=== PATIENT | female | born 1985 | race Caucasian/White ===

== ENCOUNTER → 2016-09-30 | Outpatient (CLI) | payer OTHER | END | disposition home or self-care (01) | LOC: LABWHC1 16:25 | PROVIDERS: ATTEND Obstetrics & Gynecology | DX: N91.2 Amenorrhea, unspecified (principal) | CPT/HCPCS: 36415; 84702 ==

== ENCOUNTER → 2016-10-25 | Outpatient (CLI) | payer OTHER ==
[2016-10-25 13:33] LABS: CHCM 34.7; HCT 37.1 % (34.0-46.0); HDW 2.61; HGB 12.7 gm/dL (11.4-16.0); MCH 30.7 pg (25.0-35.0); MCHC 34.2 g/dL (31.0-37.0); MCV 89.8 fL (80.0-100.0); Mean Platelet Volume 6.5; RBC 4.13 m/uL (3.80-5.40); RDW 12.7 % (11.5-15.5); WBC 9.5 k/uL (3.8-10.6)
[2016-10-25 13:58] LABS: Non-African American GFR(MDRD) >60 (>60 ml/min/1.73 sqM)
[2016-10-25 14:28] LABS: Hepatitis B Surface Ag Index 0.05
== END | disposition home or self-care (01) ==
LOC: LABWHC1 12:06
PROVIDERS: ATTEND Obstetrics & Gynecology
DX: Z34.91 Encounter for supervision of normal pregnancy, unspecified, first trimester (principal)
CPT/HCPCS: 36415; 82565; 82950; 85027; 86762; 86780; 86850; 86900; 86901; 87340

== ENCOUNTER 2016-10-31 20:19 | Emergency (ER) | payer OTHER ==
[2016-10-31 20:47] VITALS: BP 129/73; PULSE 75; RESP 16; TEMP 98.7
--- NOTE | 2016-10-31 21:32 | ED ---
ENT HPI - General Chief complaint: Dental/Oral Stated complaint: Dental Pain Time Seen by Provider: 10/31/16 21:21 Source: patient, RN notes reviewed Mode of arrival: ambulatory Limitations: no limitations - History of Present Illness Initial comments: 31-year-old male presents emergency Department with chief complaint of dental pain. Patient states in the right lower aspect. Patient denies fever or chills. She states that she cannot take Tylenol as she is . She has an ALLERGY to penicillin. Patient states she has not follow-up with dentist at this time. She's had no prior to the extractions. - Related Data Home Medications Medication Instructions Recorded Confirmed Acetaminophen Tab [Tylenol Tab] 325 mg PO Q4H PRN 10/31/16 10/31/16 Cqr-Ajmn-Tvyas Acid 1 cap PO DAILY 10/31/16 10/31/16 [-U Capsule (formulary)] Previous Rx's Medication Instructions Recorded Clindamycin HCl 300 mg PO Q6HR #40 cap 10/31/16 Allergies Allergy/AdvReac Type Severity Reaction Status Date / Time grass pollen Allergy Unknown Verified 10/31/16 21:07 Penicillins Allergy Rash/Hives Verified 10/31/16 21:07 pollen extracts Allergy Unknown Verified 10/31/16 21:07 Review of Systems ROS Statement: Those systems with pertinent positive or pertinent negative responses have been documented in the HPI. ROS Other: All systems not noted in ROS Statement are negative. Past Medical History Past Medical History: No Reported History Additional Past Medical History / Comment(s): HX ABNORMAL PAP, GESTATIONAL DIABETES History of Any Multi-Drug Resistant Organisms: None Reported Additional Past Surgical History / Comment(s): DANICA EYE SX FOR LAZY EYE Past Anesthesia/Blood Transfusion Reactions: No Reported Reaction Past Psychological History: No Psychological Hx Reported Smoking Status: Former smoker Past Alcohol Use History: Rare Additional Past Alcohol Use History / Comment(s): QUIT SMOKING AGE 24 (1999), STARTED 1995, SMOKED LESS THAN ONE PPD Past Drug Use History: None Reported - Past Family History Father Family Medical History: Cancer Additional Family Medical History / Comment(s): COLON Mother Family Medical History: Cancer, Diabetes Mellitus Additional Family Medical History / Comment(s): BREAST AND UTERINE CA General Exam Limitations: no limitations General appearance: alert, in no apparent distress Head exam: Present: atraumatic, normocephalic, normal inspection Eye exam: Present: normal appearance, PERRL, EOMI. Absent: scleral icterus, conjunctival injection, periorbital swelling ENT exam: Present: mucous membranes moist, TM's normal bilaterally, normal external ear exam. Absent: normal exam, normal oropharynx (Multiple dental caries, edentulous there is no drainable abscess noted) Neck exam: Present: normal inspection, full ROM. Absent: tenderness, meningismus, lymphadenopathy Respiratory exam: Present: normal lung sounds bilaterally. Absent: respiratory distress, wheezes, rales, rhonchi, stridor Cardiovascular Exam: Present: regular rate, normal rhythm, normal heart sounds. Absent: systolic murmur, diastolic murmur, rubs, gallop, clicks Course Vital Signs 10/31/16 20:41 Temperature 98.7 F Pulse Rate 75 Respiratory 16 Rate Blood Pressure 129/73 O2 Sat by Pulse 97 Oximetry Medical Decision Making - Medical Decision Making 31-year-old female presented for dental pain. Patient was placed on clindamycin at this time and follow-up with dentist. Patient will continue acetaminophen as she is . Return parameters were discussed. Disposition Clinical Impression: Fracture of tooth, Toothache Disposition: HOME SELF-CARE Condition: Stable Instructions: Toothache (ED) Additional Instructions: Please return to the Emergency Department if symptoms worsen or any other concerns.Please follow up with the [facility] dental clinic. [facility] [place] [address]. Phone number for new patients or [phone] for existing patients. Prescriptions: Clindamycin HCl 300 mg PO Q6HR #40 cap Referrals: None,Stated [Primary Care Provider] - 1-2 days Time of Disposition: 21:32
== END 2016-10-31 21:45 | disposition home or self-care (01) ==
LOC: EC 20:19
DX: O9A.219 Injury, poisoning and certain other consequences of external causes complicating pregnancy, unspecified trimester (principal); S02.5XXA Fracture of tooth (traumatic), initial encounter for closed fracture; O99.619 Diseases of the digestive system complicating pregnancy, unspecified trimester; K02.9 Dental caries, unspecified; Z87.891 Personal history of nicotine dependence; Z79.899 Other long term (current) drug therapy; Z88.0 Allergy status to penicillin; Z91.09 Other allergy status, other than to drugs and biological substances; X58.XXXA Exposure to other specified factors, initial encounter; Z3A.00 Weeks of gestation of pregnancy not specified
CPT/HCPCS: 99282

== ENCOUNTER 2016-11-22 22:48 | Emergency (ER) | payer OTHER ==
--- NOTE | 2016-11-22 23:15 | ED ---
Female Urogenital HPI - General Chief complaint: Vaginal Bleeding Stated complaint: spotting/11 wks preg Time Seen by Provider: 11/22/16 23:08 Source: patient, RN notes reviewed Mode of arrival: ambulatory Limitations: no limitations - History of Present Illness Initial comments: 31-year-old female presents to the emergency Department chief complaint of left lower quadrant abdominal pain and vaginal spotting. Patient states she had a trip and fall and fell backwards onto her bottom in the bathroom. Patient states that she had a sharp pain at that time it and noticed some spotting. Patient states she did have an ultrasound 11 weeks appear to be normal. Patient states she is . Patient states there is no head injury with this. Patient states there is no direct trauma to the abdomen. Patient states she was concerned due to her symptoms so she thought that she should be evaluated. Patient denies any recent fever, chills, shortness of breath, chest pain, back pain, nausea vomiting, numbness or tingling, dysuria or hematuria, constipation or diarrhea, headaches or visual changes, or any other current symptoms. - Related Data Home Medications Medication Instructions Recorded Confirmed Acetaminophen Tab [Tylenol Tab] 325 mg PO Q4H PRN 10/31/16 11/22/16 Jyu-Rizj-Xfswp Acid 1 cap PO DAILY 10/31/16 11/22/16 [-U Capsule (formulary)] Allergies Allergy/AdvReac Type Severity Reaction Status Date / Time grass pollen Allergy Unknown Verified 11/22/16 23:08 Penicillins Allergy Rash/Hives Verified 11/22/16 23:08 pollen extracts Allergy Unknown Verified 11/22/16 23:08 Review of Systems ROS Statement: Those systems with pertinent positive or pertinent negative responses have been documented in the HPI. ROS Other: All systems not noted in ROS Statement are negative. Past Medical History Past Medical History: No Reported History Additional Past Medical History / Comment(s): HX ABNORMAL PAP, GESTATIONAL DIABETES History of Any Multi-Drug Resistant Organisms: None Reported Additional Past Surgical History / Comment(s): DANICA EYE SX FOR LAZY EYE Past Anesthesia/Blood Transfusion Reactions: No Reported Reaction Past Psychological History: No Psychological Hx Reported Smoking Status: Former smoker Past Alcohol Use History: Rare Past Drug Use History: None Reported - Past Family History Father Family Medical History: Cancer Additional Family Medical History / Comment(s): COLON Mother Family Medical History: Cancer, Diabetes Mellitus Additional Family Medical History / Comment(s): BREAST AND UTERINE CA General Exam - General Exam Comments Initial Comments: General: The patient is awake and alert, in no distress, and does not appear acutely ill. Eye: Pupils are equal, round and reactive to light, extra-ocular movements are intact; there is normal conjunctiva bilaterally. No signs of icterus. Ears, nose, mouth and throat: There are moist mucous membranes. Neck: The neck is supple, there is no tenderness. Cardiovascular: There is a regular rate and rhythm. No murmur, rub or gallop is appreciated. Respiratory: Lungs are clear to auscultation, respirations are non-labored, breath sounds are equal. No wheezes, stridor, rales, or rhonchi. Gastrointestinal: Soft, non-distended, non-tender abdomen without masses or organomegaly noted. There is no rebound or guarding present. No CVA tenderness. Bowel sounds are unremarkable. Back: There is no tenderness to palpation in the midline. There is no obvious deformity. No rashes noted. Musculoskeletal: Normal ROM, no tenderness, There is no pedal edema. There is no calf tenderness or swelling. Sensation intact. Pulses equal bilaterally 2+. Neurological: CN II-XII intact, There are no obvious motor or sensory deficits. Coordination appears grossly intact. Speech is normal. Skin: Skin is warm and dry and no rashes or lesions are noted. Psychiatric: Cooperative, appropriate mood & affect, normal judgment. Limitations: no limitations External exam: Present: normal external exam Speculum exam: Present: vaginal bleeding (Minimal) By manual exam: Present: normal by manual exam Course Vital Signs 11/22/16 11/23/16 22:58 00:52 Temperature 99.1 F 98.8 F Pulse Rate 84 78 Respiratory 16 18 Rate Blood Pressure 126/70 118/59 O2 Sat by Pulse 98 98 Oximetry Medical Decision Making - Medical Decision Making 31-year-old female presents emergency department with a chief complaint of abdominal pain nausea vomiting and vaginal bleeding. At this time the patient ultrasound was reviewed as well as laboratory. At this time the patient does appear to have her cycle bleed which is most likely causing the patient's bleeding. This time we did give her program. We discussed follow-up with her doctor return parameters all questions. Patient stated that she understood all cushions have answered. She'll be discharged. - Lab Data Result diagrams: 11/22/16 23:23 11/22/16 23:23 Lab Results 11/22/16 11/22/16 11/22/16 Range/Units 23:23 23:23 23:23 WBC 10.2 (3.8-10.6) k/uL RBC 3.97 (3.80-5.40) m/uL Hgb 12.3 (11.4-16.0) gm/dL Hct 36.5 (34.0-46.0) % MCV 91.8 (80.0-100.0) fL MCH 30.9 (25.0-35.0) pg MCHC 33.6 (31.0-37.0) g/dL RDW 13.2 (11.5-15.5) % Plt Count 263 (150-450) k/uL Neutrophils % 72 % Lymphocytes % 20 % Monocytes % 6 % Eosinophils % 1 % Basophils % 0 % Neutrophils # 7.3 (1.3-7.7) k/uL Lymphocytes # 2.0 (1.0-4.8) k/uL Monocytes # 0.6 (0-1.0) k/uL Eosinophils # 0.1 (0-0.7) k/uL Basophils # 0.0 (0-0.2) k/uL Sodium 137 (137-145) mmol/L Potassium 3.3 L (3.5-5.1) mmol/L Chloride 103 (98-107) mmol/L Carbon Dioxide 23 (22-30) mmol/L Anion Gap 11 mmol/L BUN 4 L (7-17) mg/dL Creatinine 0.50 L (0.52-1.04) mg/dL Est GFR (MDRD) Af Amer >60 (>60 ml/min/1.73 sqM) Est GFR (MDRD) Non-Af >60 (>60 ml/min/1.73 sqM) Glucose 118 H (74-99) mg/dL Calcium 9.3 (8.4-10.2) mg/dL Total Bilirubin 0.3 (0.2-1.3) mg/dL AST 14 (14-36) U/L ALT 25 (9-52) U/L Alkaline Phosphatase 72 (38-126) U/L Total Protein 6.5 (6.3-8.2) g/dL Albumin 4.0 (3.5-5.0) g/dL HCG, Quant 641854.0 mIU/mL Urine Color Urine Appearance (Clear) Urine pH (5.0-8.0) Ur Specific [place] (1.001-1.035) Urine Protein (Negative) Urine Glucose (UA) (Negative) Urine Ketones (Negative) Urine Blood (Negative) Urine Nitrite (Negative) Urine Bilirubin (Negative) Urine Urobilinogen (<2.0) mg/dL Ur Leukocyte Esterase (Negative) Urine RBC (0-5) /hpf Urine WBC (0-5) /hpf Urine Mucus (None) /hpf Urine Sperm (None) /hpf Blood Type A Negative Blood Type Recheck No Antibody Screen NEGATIVE 11/22/16 Range/Units 23:23 WBC (3.8-10.6) k/uL RBC (3.80-5.40) m/uL Hgb (11.4-16.0) gm/dL Hct (34.0-46.0) % MCV (80.0-100.0) fL MCH (25.0-35.0) pg MCHC (31.0-37.0) g/dL RDW (11.5-15.5) % Plt Count (150-450) k/uL Neutrophils % % Lymphocytes % % Monocytes % % Eosinophils % % Basophils % % Neutrophils # (1.3-7.7) k/uL Lymphocytes # (1.0-4.8) k/uL Monocytes # (0-1.0) k/uL Eosinophils # (0-0.7) k/uL Basophils # (0-0.2) k/uL Sodium (137-145) mmol/L Potassium (3.5-5.1) mmol/L Chloride (98-107) mmol/L Carbon Dioxide (22-30) mmol/L Anion Gap mmol/L BUN (7-17) mg/dL Creatinine (0.52-1.04) mg/dL Est GFR (MDRD) Af Amer (>60 ml/min/1.73 sqM) Est GFR (MDRD) Non-Af (>60 ml/min/1.73 sqM) Glucose (74-99) mg/dL Calcium (8.4-10.2) mg/dL Total Bilirubin (0.2-1.3) mg/dL AST (14-36) U/L ALT (9-52) U/L Alkaline Phosphatase (38-126) U/L Total Protein (6.3-8.2) g/dL Albumin (3.5-5.0) g/dL HCG, Quant mIU/mL Urine Color Light Yellow Urine Appearance Clear (Clear) Urine pH 6.0 (5.0-8.0) Ur Specific [place] 1.006 (1.001-1.035) Urine Protein Negative (Negative) Urine Glucose (UA) Trace H (Negative) Urine Ketones Negative (Negative) Urine Blood Moderate H (Negative) Urine Nitrite Negative (Negative) Urine Bilirubin Negative (Negative) Urine Urobilinogen <2.0 (<2.0) mg/dL Ur Leukocyte Esterase Negative (Negative) Urine RBC 24 H (0-5) /hpf Urine WBC 11 H (0-5) /hpf Urine Mucus Rare H (None) /hpf Urine Sperm Rare (None) /hpf Blood Type Blood Type Recheck Antibody Screen - Radiology Data Radiology results: report reviewed, image reviewed Disposition Clinical Impression: Subchorionic bleed Disposition: HOME SELF-CARE Condition: Stable Instructions: Threatened Miscarriage (ED) Additional Instructions: Please use medication as discussed. Please follow up with family doctor if symptoms have not improved over the next two days. Please return to the emergency room if your symptoms increase or worsen or for any other concerns. Referrals: Skylre Pereira MD [STAFF PHYSICIAN] - 1-2 days Time of Disposition: 01:34
[2016-11-22 23:50] LABS: Basophils % (A) 0 %; CH 31.6; CHCM 34.6; Eosinophils # (A) 0.1 k/uL (0-0.7); Eosinophils % (A) 1 %; HCT 36.5 % (34.0-46.0); HGB 12.3 gm/dL (11.4-16.0); Luc % (Auto) 1; Lymphocytes % (A) 20 %; MCH 30.9 pg (25.0-35.0); MCHC 33.6 g/dL (31.0-37.0); MCV 91.8 fL (80.0-100.0); Mean Platelet Volume 6.7; Monocytes # (A) 0.6 k/uL (0-1.0); Monocytes % (A) 6 %; Neutrophils # (A) 7.3 k/uL (1.3-7.7); Neutrophils % (A) 72 %; RBC 3.97 m/uL (3.80-5.40); RDW 13.2 % (11.5-15.5); WBC 10.2 k/uL (3.8-10.6); WBC (Perox) 10.41
[2016-11-22 23:55] LABS: Appearance,Urine Clear (Clear); Bilirubin,Urine Negative (Negative); Glucose,Urine (UA) Trace (Negative); Ketones,Urine Negative (Negative); Leukocyte Esterase,Urine Negative (Negative); Mucus,Urine Rare /hpf; Nitrite,Urine Negative (Negative); Particle Count 1188; Protein,Urine Negative (Negative); RBC,Urine 24 /hpf (0-5); Specific Gravity,Urine 1.006 (1.001-1.035); Sperm,Urine Rare /hpf; UA Billing (MACRO vs. MICRO) MICRO; Urobilinogen,Urine <2.0 mg/dL (<2.0); WBC,Urine 11 /hpf (0-5)
[2016-11-23] LABS: ALT 25 U/L (9-52); AST 14 U/L (14-36); Alkaline Phosphatase 72 U/L (38-126); Anion Gap 11 mmol/L; Blood Urea Nitrogen 4 mg/dL (7-17); Calcium 9.3 mg/dL (8.4-10.2); Carbon Dioxide 23 mmol/L (22-30); Chloride 103 mmol/L (98-107); Glucose 118 mg/dL (74-99); Non-African American GFR(MDRD) >60 (>60 ml/min/1.73 sqM); Potassium 3.3 mmol/L (3.5-5.1); Sodium 137 mmol/L (137-145); Total Bilirubin 0.3 mg/dL (0.2-1.3); Total Protein 6.5 g/dL (6.3-8.2)
[2016-11-23] MEDS ORDERED: Rhogam IMMUNE GLOBULIN 1,500 UNIT/1 ML IM ONE (00:34)
[2016-11-23 00:55] VITALS: RESP 18
--- NOTE | 2016-11-23 01:05 | US ---
History: Reason: Pain Exam: US OB 1st TRIMESTER Comparison: None available FINDINGS: Single live intrauterine measuring 12 weeks and 2 days by crown- rump length. heart tones 152 bpm. Appearance of perisac hemorrhage measuring 2 x 1 x 3.2 cm. The uterus measures 14.5 x 7.7 x 9.8 cm with a volume of 568 cc. The right ovary measures 2.7 x 1.9 x 2.4 cm with a volume of 8.5 cc. The left ovary measures 3.9 x 0.8 x 1 x 2 cm with a volume of 3.3 cc. No evidence of adnexal mass. No free fluid seen. IMPRESSION: Single live intrauterine measuring 12 weeks and 2 days by crown- rump length with estimated delivery date of 06/04/2017. heart tones 152 bpm. Perisac hemorrhage measuring 2 x 1 x 3.2 cm.
[2016-11-23 01:54] VITALS: BP 124/59; PULSE 65; TEMP 98.1
== END 2016-11-23 01:59 | disposition home or self-care (01) ==
LOC: EC 22:48
DX: O20.9 Hemorrhage in early pregnancy, unspecified (principal); Z87.891 Personal history of nicotine dependence; Z88.0 Allergy status to penicillin; Z91.09 Other allergy status, other than to drugs and biological substances; Z3A.11 11 weeks gestation of pregnancy; Z79.899 Other long term (current) drug therapy
CPT/HCPCS: 99284; 90384; 96372; 36415; 86900; 86901; 80053; 85025; 86850; 81001; 84702; 76813; 76801; J2791

== ENCOUNTER 2017-04-13 03:03 | Outpatient (CLI) | payer OTHER ==
[2017-04-13 03:25] LABS: Glucose,Whole Blood 171 mg/dL (75-99)
[2017-04-13] MEDS ORDERED: INSULIN ASPART 100 UNIT/ML 1 ML 10 ML VIAL SQ ONE (03:28)
[2017-04-13 03:38] VITALS: BP 136/80; PULSE 109; RESP 16; TEMP 96.7
[2017-04-13] MEDS: LACTATED RINGERS 1,000 ML IV SCH ×3 (03:40→08:43)
[2017-04-13 03:53] LABS: Appearance,Urine Cloudy (Clear); Bilirubin,Urine Negative (Negative); Calcium Oxalate Crystals,Urine Occasional /hpf; Glucose,Urine (UA) 4+ (Negative); Ketones,Urine Trace (Negative); Leukocyte Esterase,Urine Large (Negative); Mucus,Urine Occasional /hpf; Nitrite,Urine Negative (Negative); Particle Count 12472; Protein,Urine 1+ (Negative); RBC,Urine 33 /hpf (0-5); Specific Gravity,Urine 1.015 (1.001-1.035); Squamous Epithelial Cell,Urine 7 /hpf (0-4); UA Billing (MACRO vs. MICRO) MICRO; Urobilinogen,Urine <2.0 mg/dL (<2.0); WBC,Urine >182 /hpf (0-5)
[2017-04-13 04:23] LABS: Glucose,Whole Blood 134 mg/dL (75-99)
[2017-04-13] MEDS ORDERED: CIPROFLOXACIN HCL 250 MG TAB PO STA (04:30)
[2017-04-13 06:59] LABS: Glucose,Whole Blood 88 mg/dL (75-99)
[2017-04-13] MEDS ORDERED: BETAMET ACET-BETAMETH SOD PHOS 6 MG/ML VIAL IM SCH (07:15)
[2017-04-13 07:20] LABS: Basophils % (A) 0 %; CH 31.6; Eosinophils # (A) 0.2 k/uL (0-0.7); Eosinophils % (A) 2 %; HCT 36.6 % (34.0-46.0); Luc # (Auto) 0.18; Luc % (Auto) 2; Lymphocytes # (A) 2.1 k/uL (1.0-4.8); Lymphocytes % (A) 19 %; MCH 30.7 pg (25.0-35.0); MCHC 32.8 g/dL (31.0-37.0); MCV 93.7 fL (80.0-100.0); Monocytes # (A) 0.8 k/uL (0-1.0); Monocytes % (A) 7 %; Neutrophils % (A) 70 %; RDW 13.9 % (11.5-15.5); WBC 11.3 k/uL (3.8-10.6); WBC (Perox) 11.47
--- NOTE | 2017-04-13 07:22 | P.HPOB ---
History of Present Illness H&P Date: 04/13/17 Chief Complaint: Contractions This patient is a 32-year-old 3 para 2 female estimated date of confinement 06/08/2016 estimated gestational age 32 0/7 weeks who presents to labor and delivery with complaints of contractions throughout the day yesterday. Patient presented here around 3 AM and was thought not to be dilated. Patient's having contractions every 3-5 minutes that she feels are uncomfortable. Cervix and actually was closed now feels to be 1-2 cm dilated and soft. fibronectin was positive but cloudy, and therefore positive results have to be interpreted with caution. Urinalysis also significant for possible urinary tract infection. Patient's care is per Dr. Phillips it appears to be complicated by gestational diabetes. She is also followed by Dr. Yancey and Dr. Colon at maternal medicine in [place]. Patient most recently was started on insulin. flow however shows that she's been spilling sugar and her sugar is elevated at 171 on admission here patient states that she had a breakfast sandwich in the middle the night. Review of Systems Constitutional: Denies chills, Denies fever Cardiovascular: Denies chest pain, Denies shortness of breath Respiratory: Denies cough Gastrointestinal: Reports heartburn Genitourinary: Reports Menstruation: Reports amenorrhea Past Medical History Additional Past Medical History / Comment(s): HX ABNORMAL PAP, GESTATIONAL DIABETES History of Any Multi-Drug Resistant Organisms: None Reported Additional Past Surgical History / Comment(s): Bilateral eye surgery. LEEP excision of the cervix (after the delivery of her last baby.) Patient's had 2 previous term deliveries. Past Anesthesia/Blood Transfusion Reactions: No Reported Reaction Smoking Status: Never smoker Past Alcohol Use History: None Reported Past Drug Use History: None Reported - Past Family History Father Family Medical History: Cancer Additional Family Medical History / Comment(s): COLON Mother Family Medical History: Cancer, Diabetes Mellitus Additional Family Medical History / Comment(s): BREAST AND UTERINE CA Medications and Allergies Home Medications Medication Instructions Recorded Confirmed Type Mvg-Lxrv-Mhdzt Acid 1 cap PO DAILY 10/31/16 04/13/17 History [-U Capsule (formulary)] Insulin Lispro [humaLOG] 10 units SQ BID 04/13/17 04/13/17 History Allergies Allergy/AdvReac Type Severity Reaction Status Date / Time grass pollen Allergy Unknown Verified 04/13/17 03:07 Penicillins Allergy Anaphylaxis Verified 04/13/17 03:07 pollen extracts Allergy Unknown Verified 04/13/17 03:07 Exam - Vital Signs Vital signs: Vital Signs Temp Pulse Resp BP Pulse Ox 04/13/17 03:19 96.7 F L 109 H 16 136/80 97 Intake and Output 04/12/17 04/13/17 04/13/17 22:59 06:59 14:59 Intake Total 1000 Balance 1000 Intake: Intake, IV Titration 1000 Amount Lactated Ringers 1,000 ml 1000 @ 999 mls/hr IV .Q1H1M BENJAMIN Rx#:[id number] Other: # Voids 2 Weight 88.451 kg - OBG Physical Exam Abdomen: bowel sounds normal, no diffuse tenderness, no bruit present, no guarding noted, no hepatomegaly, no splenomegaly, no mass Vulva: both: normal Cervix: Cervix is 1-2 cm dilated on effaced but very soft and the head is ballotable. Cervix: no lesion, no discharge Uterus: enlarged (Fundal height per Dr. Phillips is 38 cm) Results blood work shows she is A positive, rubella immune, RPR nonreactive, hepatitis B negative, most recent ultrasound showed the baby to be vertex 5 lbs. 8 oz. with polyhydramnios to 25 cm. Abnormal Lab Results - Last 24 Hours (Table) 04/13/17 04/13/17 04/13/17 Range/Units 03:20 03:27 04:21 POC Glucose (mg/dL) 171 H 134 H (75-99) mg/dL Urine Appearance Cloudy H (Clear) Urine Protein 1+ H (Negative) Urine Glucose (UA) 4+ H (Negative) Urine Ketones Trace H (Negative) Urine Blood Moderate H (Negative) Ur Leukocyte Esterase Large H (Negative) Urine RBC 33 H (0-5) /hpf Urine WBC >182 H (0-5) /hpf Ur Squamous Epith Cells 7 H (0-4) /hpf Calcium Oxalate Crystal Occasional H (None) /hpf Urine Mucus Occasional H (None) /hpf Assessment and Plan (1) uterine contractions in third trimester, antepartum Narrative/Plan: This patient is a 32-year-old 3 para 2 female 32-0/7 weeks gestation with contractions and cervical change and gestational diabetes (suspect poor control). Patient's fibronectin was positive however there is a questionable validity due to the cloudy sample. Patient's blood sugars elevated on admission and she has been given 2 units of insulin and we have brought it down to 134. I discussed this case with [facility] due to the prematurity and the fact that she is being controlled by the maternal- medicine for gestational diabetes recommendations at this time are to transfer this patient for further evaluation and glucose regulation. Patient will be given Celestone despite the fact that this may affect her blood sugar because she'll be watched their and have it controlled. At this point the benefits outweigh the risks. Plan at this time was transferred to [facility] for maternal medicine care and concern for possible delivery. Current Visit: Yes Status: Acute Code(s): O47.03 - FALSE LABOR BEFORE 37 COMPLETED WEEKS OF GEST, THIRD TRI SNOMED Code(s): 711162825 (2) Gestational diabetes Current Visit: Yes Status: Acute Code(s): O24.419 - GESTATIONAL DIABETES MELLITUS IN , UNSP CONTROL SNOMED Code(s): 97860462 (3) Urinary tract infection Current Visit: Yes Status: Acute Code(s): N39.0 - URINARY TRACT INFECTION, SITE NOT SPECIFIED SNOMED Code(s): 46377088
[2017-04-13 07:27] LABS: ALT 14 U/L (9-52); AST 18 U/L (14-36); Alkaline Phosphatase 126 U/L (38-126); Anion Gap 7 mmol/L; Blood Urea Nitrogen 3 mg/dL (7-17); Calcium 8.9 mg/dL (8.4-10.2); Carbon Dioxide 23 mmol/L (22-30); Chloride 108 mmol/L (98-107); Glucose 81 mg/dL (74-99); Non-African American GFR(MDRD) >60 (>60 ml/min/1.73 sqM); Potassium 3.5 mmol/L (3.5-5.1); Sodium 138 mmol/L (137-145); Total Bilirubin 0.3 mg/dL (0.2-1.3)
--- NOTE | 2017-04-13 08:13 | P.DS ---
Providers Expected date of discharge: 04/13/17 Attending physician: Leif Abarca Primary care physician: Lief Abarca - Discharge Diagnosis(es) (1) uterine contractions in third trimester, antepartum Current Visit: Yes Status: Acute (2) Gestational diabetes Current Visit: Yes Status: Acute (3) Urinary tract infection Current Visit: Yes Status: Acute Hospital Course: Please see dictated H&P for this patient's admission. This is a 32-year-old 3 para 2 female 32-0/7 weeks gestation with complaints of 1 days of contractions. Patient a positive fibronectin and cervical change in labor and delivery. Patient also had what appears to be uncontrolled gestational diabetes. Patient was transferred to [facility] for further evaluation and treatment. Patient Condition at Discharge: Stable Plan - Discharge Summary New Discharge Prescriptions: No Action Uvq-Yota-Datll Acid [-U Capsule (formulary)] 1 cap PO DAILY Insulin Lispro [humaLOG] 10 units SQ BID Discharge Medication List Zin-Owrs-Hykhm Acid [-U Capsule (formulary)] 1 cap PO DAILY 06/18 [History] Insulin Lispro [humaLOG] 10 units SQ BID 04/13/17 [History] Discharge Disposition: OTHER INSTITUTION NOT DEFINED
--- NOTE | 2017-04-13 08:15 | P.MSEPDOC ---
Presenting Problems - Arrival Data Date of Arrival on Unit: 04/13/17 Time of Arrival on Unit: 03:00 Mode of Transport: Wheelchair - Complaint OB-Reason for Admission/Chief Complaint: Rule Out PROM Comment: cntrx all day, worsening since 1999 Medical History - Information : 3 Para: 2 Term: 2 : 0 Abortions: Spontaneous or Elective: 0 Number of Living Children: 2 - Gestational Age Gestational Age by SPARKLE (wks/days): 32 Weeks and 6 Days - History Complications: GDM Comment: insulin dependent, 10 units BID unsure of what insulin Review of Systems - Review of Systems Constitutional: No problems Breast: No problems ENT: No problems Cardiovascular: No problems Respiratory: No problems Gastrointestinal: No problems Genitourinary: No problems Musculoskeletal: No problems Neurological: No problems Skin: No problems Vital Signs - Temperature Temperature: 96.7 F Temperature Source: Temporal Artery Scan - Pulse Right Pulse Rate: 109 Pulse Assessment Method: Pulse Oximetry - Respirations Respiratory Rate: 16 O2 Sat by Pulse Oximetry: 97 - Blood Pressure Right Arm Blood Pressure: 136/80 Blood Pressure Mean: 98 Blood Pressure Source: Automatic Cuff Medical Screen Scoring (Pre) - Cervical Exam Dilation: 0 cm = 0 Effacement: Exam Deferred - Uterine Contractions Frequency: < 36 weeks = 6 Duration: > 40 seconds = 2 - Maternal Vital Signs Maternal Temperature: N/A Maternal Blood Pressure: N/A Signs of Preeclampsia: N/A Maternal Respirations: N/A - Pain Assessment Pain Location and Character: Abdomen Pain Scale Used: Numeric (1 - 10) Pain Intensity: 9 Pain Management Goal: 3 Pain Description: *Acute, Tightness Pain Frequency: Intermittent Pain Duration: 7 Pain Duration Units: Hours Pain Behavior: Vocalization Pain Aggravating Factors: Contractions - Assessment Baseline FHR: 135 Heart Rate - NICHD Category: Category I (Normal) = 0 Position: N/A - Total Score Total Score (Pre): 8 - Level of Risk Level of Risk: Medium (6-9) Physician Notification (Pre) - Physician Notified Physician Notified Date: 04/13/17 Physician Notified Time: 03:20 Physician/Practitioner Notifed:: Dr Abarca - Notification Comment Comment: reported on c/o cntrx since 1999, GDM insulin controlled, ffn collected , vag exam performed, no bleeding or leaking, NST not reactive yet. orders for IV fluids, send ffn and UA, orally hydrate. If cntrx space out, pt is feeling better and ffn is negative, pt may be d/c'd home Medical Screen Scoring (Post) - Cervical Exam Dilation: Exam Deferred Effacement: Exam Deferred - Uterine Contractions Frequency: < 36 weeks = 6 Duration: > 40 seconds = 2 Intensity: N/A - Maternal Vital Signs Maternal Temperature: N/A Maternal Blood Pressure: N/A Signs of Preeclampsia: N/A Maternal Respirations: N/A - Assessment Heart Rate: 130 Heart Rate - NICHD Category: Category I (Normal) = 0 NST: Reactive - Total Score Total Score (Post): 8 - Post Treatment Level of Risk Post Treatment Level of Risk: Medium (6-9) Physician Notification (Post) - Physician Notified Physician Notified Date: 04/13/17 Physician Notified Time: 04:25 Physician/Practitioner Notified:: Dr Abarca - Notification Comment Comment: reviewed +ffn but cloudy sample so lab instructs to "interpret with caution" due to possible false +, UA Results, fhts reactive, cntrx pattern. orders to keep in triage until he comes in, add culture to urine, cipro po, keep iv infusing. Disposition - Disposition OB Disposition: Observe, Triage I agree with the RN Medical Screening Exam: Yes Risk & Benefit of care provided described in d/c instruction: Yes Diagnosis: LABOR WITHOUT DELIVERY, THIRD TRIMESTER
== END 2017-04-13 08:00 | disposition short-term general hospital (02) ==
LOC: FBPOP 03:03
PROVIDERS: ATTEND Obstetrics & Gynecology
DX: O60.03 Preterm labor without delivery, third trimester (principal); Z3A.32 32 weeks gestation of pregnancy
CPT/HCPCS: 59025; 96360; 96361; 96372; 82731; 80053; 85025; 81001; 87086; G0463; J0702; 99214

== ENCOUNTER 2017-04-22 10:19 | Inpatient (IN) | payer OTHER ==
[2017-04-22] MEDS ORDERED: OXYTOCIN 10 UNIT/ML 1 ML VIAL IM PRN (10:52)
[2017-04-22] MEDS ORDERED: CARBOPROST TROMETHAMINE 250 MCG/ML 1 ML AMP IM PRN (10:52)
[2017-04-22] MEDS ORDERED: LIDOCAINE 1% (PF) 10 MG/ML (30 ML SDV) SQ PRN (10:52)
[2017-04-22] MEDS ORDERED: METHYLERGONOVINE 0.2 MG/ML 1 ML AMP IM PRN (10:52)
[2017-04-22] MEDS ORDERED: TERBUTALINE 1 MG/ML VIAL SQ PRN (10:52)
[2017-04-22] MEDS ORDERED: LACTATED RINGERS 1,000 ML IV SCH ×2 (11:00)
[2017-04-22] MEDS ORDERED: CLINDAMYCIN 900 MG in DEXTROSE 5% IN WATER 50 ML IVPB SCH ×2 (11:00)
[2017-04-22 11:10] LABS: Glucose,Whole Blood 105 mg/dL (75-99)
[2017-04-22] MEDS ORDERED: BETAMET ACET-BETAMETH SOD PHOS 6 MG/ML VIAL IM SCH (11:15)
[2017-04-22 11:41] LABS: Basophils # (A) 0.1 k/uL (0-0.2); Basophils % (A) 0 %; CH 30.8; CHCM 33.7; Eosinophils # (A) 0.1 k/uL (0-0.7); Eosinophils % (A) 1 %; HDW 3.18; HGB 11.1 gm/dL (11.4-16.0); Luc # (Auto) 0.17; Luc % (Auto) 1; Lymphocytes # (A) 1.3 k/uL (1.0-4.8); Lymphocytes % (A) 9 %; MCH 29.9 pg (25.0-35.0); MCHC 32.5 g/dL (31.0-37.0); Mean Platelet Volume 7.2; Monocytes # (A) 0.9 k/uL (0-1.0); Monocytes % (A) 6 %; Neutrophils # (A) 12.7 k/uL (1.3-7.7); Neutrophils % (A) 83 %; RDW 13.5 % (11.5-15.5); WBC 15.3 k/uL (3.8-10.6); WBC (Perox) 15.53
--- NOTE | 2017-04-22 11:56 | P.HPOB ---
History of Present Illness H&P Date: 04/22/17 Chief Complaint: Contractions This is a 32-year-old female 3 para 2 with an estimated date of confinement of 06/08/2017, estimated gestational age of 33-3/7 weeks, who presents to labor and delivery with complaints of contractions that began about 6-7 this morning. They became stronger and then she came in. She was admitted to maternal medicine in [place] on April 13. She was given 2 doses of Celestone on the and and then was discharged on April 18. She stated she was 3 cm when she was in [place]. She stated they kept her that long to get her sugars under control. She states she is taking insulin but does not take any this morning. She has 1 insulin she takes twice a day and another insulin that she takes 3 times a day right before her meals. She could not give me the doses on her insulin or what kind of insulin she is taking. labs: Blood type A-, RhoGAM was given at approximately 28 weeks Antibody screen-negative Syphilis antibody-negative nonreactive Rubella-immune 1 hour Glucola-203 Hepatitis B surface antigen-negative Hemoglobin-12.7 Group B streptococcus positive on urine culture Obstetrical history: . History of 2 vaginal deliveries at term. She did have gestational diabetes with her second . Gynecologic history: She does have a history of abnormal Pap smears in the past and did have a LEEP procedure in July 2015 Review of Systems Constitutional: Denies chills, Denies fever Eyes: denies blurred vision, denies pain Cardiovascular: Denies chest pain, Denies shortness of breath Respiratory: Denies cough Gastrointestinal: Reports abdominal pain (Contractions) Genitourinary: Reports pelvic pain, Reports Musculoskeletal: Reports low back pain Integumentary: Denies pruritus, Denies rash Neurological: Denies numbness, Denies weakness Psychiatric: Denies anxiety, Denies depression Past Medical History Additional Past Medical History / Comment(s): HX ABNORMAL PAP, GESTATIONAL DIABETES History of Any Multi-Drug Resistant Organisms: None Reported Additional Past Surgical History / Comment(s): Bilateral eye surgery. LEEP excision of the cervix (after the delivery of her last baby.) Patient's had 2 previous term deliveries. Past Anesthesia/Blood Transfusion Reactions: No Reported Reaction Past Psychological History: No Psychological Hx Reported Smoking Status: Never smoker Past Alcohol Use History: None Reported Additional Past Alcohol Use History / Comment(s): QUIT SMOKING AGE 24 (1999), STARTED 1995, SMOKED LESS THAN ONE PPD Past Drug Use History: None Reported - Past Family History Father Family Medical History: Cancer Additional Family Medical History / Comment(s): COLON Mother Family Medical History: Cancer, Diabetes Mellitus Additional Family Medical History / Comment(s): BREAST AND UTERINE CA Medications and Allergies Home Medications Medication Instructions Recorded Confirmed Type Uws-Lqjv-Ymfqx Acid 1 cap PO DAILY 10/31/16 04/13/17 History [-U Capsule (formulary)] Insulin Lispro [humaLOG] 10 units SQ BID 04/13/17 04/13/17 History Allergies Allergy/AdvReac Type Severity Reaction Status Date / Time grass pollen Allergy Unknown Verified 04/13/17 03:07 Penicillins Allergy Anaphylaxis Verified 04/13/17 03:07 pollen extracts Allergy Unknown Verified 04/13/17 03:07 Exam Osteopathic Statement: *. No significant issues noted on an osteopathic structural exam other than those noted in the History and Physical/Consult. - Vital Signs Vital signs: Vital Signs Temp Resp BP 04/22/17 11:28 97.8 F 18 128/93 Intake and Output 04/21/17 04/22/17 04/22/17 22:59 06:59 14:59 Other: Weight 89.358 kg Patient Weight 04/23/17 06:59 Weight 89.358 kg HEENT: Within normal limits Heart: Regular rate and rhythm Lungs: Clear to auscultation bilaterally Abdomen: Cervix: 7 cm/100% -2 station with bulging bag. heart tones: Reactive Contractions: Every 2-3 minutes Extremities: Negative Homans Results Result Diagrams: 04/22/17 11:25 Abnormal Lab Results - Last 24 Hours (Table) 04/22/17 04/22/17 Range/Units 11:01 11:25 WBC 15.3 H (3.8-10.6) k/uL RBC 3.70 L (3.80-5.40) m/uL Hgb 11.1 L (11.4-16.0) gm/dL Neutrophils # 12.7 H (1.3-7.7) k/uL POC Glucose (mg/dL) 105 H (75-99) mg/dL Assessment and Plan (1) labor in third trimester with delivery Current Visit: Yes Status: Acute Code(s): O60.14X0 - LABOR THIRD TRI W DELIVERY THIRD TRI, UNSP SNOMED Code(s): 8269757 (2) 33 weeks gestation of Current Visit: Yes Status: Acute Code(s): Z3A.33 - 33 WEEKS GESTATION OF SNOMED Code(s): 24980267 (3) Gestational diabetes Current Visit: No Status: Acute Code(s): O24.419 - GESTATIONAL DIABETES MELLITUS IN , UNSP CONTROL SNOMED Code(s): 89582315 (4) Group B Streptococcus carrier state affecting Current Visit: Yes Status: Acute Code(s): O99.820 - STREPTOCOCCUS B CARRIER STATE COMPLICATING SNOMED Code(s): 598404157 Plan: Admission for active labor. Antibiotic prophylaxis for group B streptococcus. Expectant management. Patient is aware that the baby will need to be transferred due to prematurity.
[2017-04-22 12:25] VITALS: BMI 32.8
[2017-04-22] MEDS ORDERED: OXYTOCIN 20 UNITS/1000 ML NS 1,000 ML IV SCH (13:53)
[2017-04-22] MEDS ORDERED: ACETAMINOPHEN TAB 325 MG TAB PO PRN (13:53)
[2017-04-22] MEDS ORDERED: IBUPROFEN 600 MG TAB PO PRN (13:53)
[2017-04-22] MEDS ORDERED: HYDROCORTISONE 2.5% RECTAL CREAM 30 GM TUBE RECTAL PRN (13:53)
[2017-04-22] MEDS ORDERED: diphenhydrAMINE 50 MG/ML 1 ML VIAL IVP PRN ×2 (13:53)
[2017-04-22] MEDS ORDERED: SIMETHICONE 80 MG CHEWABLE PO PRN (13:53)
[2017-04-22] MEDS ORDERED: diphenhydrAMINE 50 MG CAP PO PRN (13:53)
[2017-04-22] MEDS ORDERED: BENZOCAINE/MENTHOL SPRAY 1 GM/SPRAY AEROSOL TOPICAL PRN (13:53)
[2017-04-22] MEDS ORDERED: Acetaminophen-Codeine 300-30mg TAB PO PRN ×2 (13:53)
[2017-04-22] MEDS ORDERED: diphenhydrAMINE 25 MG CAP PO PRN (13:53)
[2017-04-22] MEDS ORDERED: WITCH HAZEL 1 EACH MED..PAD TOPICAL PRN (13:53)
[2017-04-22] MEDS ORDERED: LANOLIN CREAM 5 GM TUBE TOPICAL PRN (13:53)
[2017-04-22] MEDS ORDERED: ZOLPIDEM 5 MG TAB PO PRN (13:53)
[2017-04-22] MEDS ORDERED: INSULIN ASPART 100 UNIT/ML 1 ML 10 ML VIAL SQ ONE ×2 (15:42→22:37)
[2017-04-22 16:06] LABS: Glucose,Whole Blood 187 mg/dL (75-99)
--- NOTE | 2017-04-22 16:26 | P.CONS ---
History of Present Illness - Reason for Consult Consult date: 04/22/17 diabetic management Requesting physician: Jennifer Boles - Chief Complaint contractions - History of Present Illness Patient is a 32-year-old female with a past medical history of gestational diabetes, prior tobacco abuse, and obesity who presented with labor. She subsequently delivered a baby boy at 33 3/7 weeks. She had recently been hospitalized at [facility] for labor. This morning she began experiencing contractions a headed to the hospital. She states she has had gestational diabetes for the majority of her . She states she has been on insulin since her first trimester. She is unsure of her exact insulin doses but takes it 3 times a day with meals and twice a day long- acting insulin. She is unsure of the names or the doses. She takes 1 vial in 1 -10. She denies any chest pain, shortness of breath, or lightheadedness. She complains of abdominal pain. She was having significant swelling in her lower extremities prior to delivery. Her baby will be going to the special care nursery. She feels that she is going to stay here over night and leave in the morning. Review of Systems Pertinent positives and negatives as per HPI, all other review of systems is negative. Past Medical History Past Medical History: No Reported History Additional Past Medical History / Comment(s): HX ABNORMAL PAP, GESTATIONAL DIABETES X 2 History of Any Multi-Drug Resistant Organisms: None Reported Additional Past Surgical History / Comment(s): Eye surgery for strabismus. LEEP excision of the cervix (after the delivery of her last baby.) Patient's had 2 previous term deliveries. Past Anesthesia/Blood Transfusion Reactions: No Reported Reaction Past Psychological History: No Psychological Hx Reported Smoking Status: Never smoker Past Alcohol Use History: None Reported Additional Past Alcohol Use History / Comment(s): QUIT SMOKING AGE 24 (1999), STARTED 1995, SMOKED LESS THAN ONE PPD Past Drug Use History: None Reported - Past Family History Father Family Medical History: Cancer Additional Family Medical History / Comment(s): COLON Mother Family Medical History: Cancer, Diabetes Mellitus Additional Family Medical History / Comment(s): BREAST AND UTERINE CA Medications and Allergies Home Medications Medication Instructions Recorded Confirmed Type Iqa-Ynmb-Pxweq Acid 1 cap PO DAILY 10/31/16 04/13/17 History [-U Capsule (formulary)] Insulin Lispro [humaLOG] 10 units SQ BID 04/13/17 04/13/17 History Allergies Allergy/AdvReac Type Severity Reaction Status Date / Time grass pollen Allergy Unknown Verified 04/13/17 03:07 Penicillins Allergy Anaphylaxis Verified 04/13/17 03:07 pollen extracts Allergy Unknown Verified 04/13/17 03:07 Physical Exam Osteopathic Statement: *. No significant issues noted on an osteopathic structural exam other than those noted in the History and Physical/Consult. Vitals: Vital Signs Temp Pulse Resp BP 04/22/17 15:24 86 14 135/75 04/22/17 14:54 81 14 136/72 04/22/17 14:31 86 14 111/60 04/22/17 14:24 88 14 121/58 04/22/17 14:09 86 16 129/63 04/22/17 13:54 96.8 F L 88 18 119/61 04/22/17 11:28 97.8 F 18 128/93 Intake and Output 04/22/17 04/22/17 04/22/17 06:59 14:59 22:59 Other: Weight 89.358 kg Patient Weight 04/23/17 06:59 Weight 89.358 kg Results CBC & Chem 7: 04/22/17 11:25 Labs: Abnormal Lab Results - Last 24 Hours (Table) 04/22/17 04/22/17 04/22/17 Range/Units 11:01 11:25 15:37 WBC 15.3 H (3.8-10.6) k/uL RBC 3.70 L (3.80-5.40) m/uL Hgb 11.1 L (11.4-16.0) gm/dL Neutrophils # 12.7 H (1.3-7.7) k/uL POC Glucose (mg/dL) 105 H 187 H (75-99) mg/dL Assessment and Plan Assessment: Gestational diabetes, suspect true diabetes with early onset in and amount of insulin needed. -Maternal medicine at [place] contacted at [phone]. Patient was discharged home from the hospital on aspart 10 units a day before meals and Levemir 20U prior to breakfast and at night. - SSI insulin and Levemir 10 units tonight. - Insulin resistance should decrease after delivery and will therefore decrease insulin - if she decide to leave before the morning I would discharge on levemir 20 units at night (Pt refers to this as pen insulin) and have her continue to check Blood sugars times daily. She would not need a new Rx just new directions and there are added to discharge tab. If her sugars are >200 or less than 90 at home she should contact Lindsey the special educator at maternal medicine. She will also need to establish with a family doctor for half-way management. Dr. Rust is currently accepting new patient info added to discharge tab. - Will need repeat HgB A1C in 6 weeks if greater than 6 would confirm diabetes. delivery - management per JOB COMPOSITOR Thank you for allowing us to participate in the care of this patient. Do not hesitate to contact us with questions. Someone can be reached from the [facility] hospitalist group at all hours of the day at [phone].
--- NOTE | 2017-04-22 17:29 | P.PROBDLV ---
Vaginal Delivery Note - . Vaginal Delivery Note: The patient progressed to complete dilation after artificial rupture of membranes with thin meconium noted. She did receive 1 dose of clindamycin due to group B strep positive. Once reaching complete dilation she involuntarily started pushing and delivered fairly rapidly across the perineum. Nose and mouth were bulb suctioned after delivery and brisk cry was noted immediately. A viable male infant was noted with scores of 8 at 1 minute and 9 at 5 minutes and infant weight of 7 lbs. 9 oz. Cord blood was obtained secondary to Rh- status. Placenta delivered shortly thereafter intact, with a three-vessel cord. Of note she did have a velamentous cord insertion. Uterus contracted fairly well after oxytocin was given and uterine massage was carried out. Inspection of the perineum revealed a second-degree perineal laceration. This area was anesthetized with 1% lidocaine and then sutured with 3-0 and 2-0 Vicryl suture in the usual multilayer fashion. Estimated blood loss was approximately 200 mL's. Both mother and infant are in stable condition. [facility] due to prematurity.
[2017-04-22 18:59] LABS: Glucose,Whole Blood 171 mg/dL (75-99)
[2017-04-22] MEDS: INSULIN ASPART 100 UNIT/ML 1 ML 10 ML VIAL SQ SCH ×2 (19:00→22:00)
[2017-04-22] MEDS ORDERED: SENNOSIDES-DOCUSATE SODIUM 1 EACH TAB PO SCH (20:00)
[2017-04-22] MEDS ORDERED: INSULIN DETEMIR 100 UNIT/ML 10 ML VIAL SQ SCH (21:00)
[2017-04-22 21:31] LABS: Glucose,Whole Blood 210 mg/dL (75-99)
[2017-04-23 07:18] LABS: Glucose,Whole Blood 72 mg/dL (75-99)
[2017-04-23 07:46] LABS: Basophils # (A) 0.1 k/uL (0-0.2); Basophils % (A) 1 %; CH 31.2; CHCM 34.7; Eosinophils # (A) 0.5 k/uL (0-0.7); Eosinophils % (A) 3 %; HCT 32.1 % (34.0-46.0); HDW 3.13; HGB 10.7 gm/dL (11.4-16.0); Luc # (Auto) 0.31; Luc % (Auto) 2; Lymphocytes # (A) 2.3 k/uL (1.0-4.8); Lymphocytes % (A) 13 %; MCHC 33.2 g/dL (31.0-37.0); MCV 90.4 fL (80.0-100.0); Mean Platelet Volume 7.4; Monocytes # (A) 1.2 k/uL (0-1.0); Monocytes % (A) 7 %; Neutrophils # (A) 13.8 k/uL (1.3-7.7); Neutrophils % (A) 76 %; RBC 3.55 m/uL (3.80-5.40); RDW 13.5 % (11.5-15.5); WBC 18.2 k/uL (3.8-10.6); WBC (Perox) 18.34
--- NOTE | 2017-04-23 07:53 | P.DS ---
Providers Date of admission: 04/22/17 10:53 Expected date of discharge: 04/23/17 Attending physician: Kellee Phillips Consults: 04/22/17 13:53 Consult Physician Urgent Consulting Provider: Carol Driscoll Consult Reason/Comments: Diabetes management Do you want consulting provider notified?: Yes Primary care physician: Stated None - Discharge Diagnosis(es) (1) Normal vaginal delivery Current Visit: Yes Status: Acute Hospital Course: Patient presented in active labor with uncontrolled gestational diabetes at 33 weeks. She had some labor issues last week and was transferred to a tertiary facility. They discharged her a few days ago. She returned here in active labor and her sugars are still not well controlled despite counselling and insulin and diet. She did deliver and [facility] The patient is doing well, she had a consult with medicine and will follow up with Dr Rust as a family physician to follow her diabetes management. I will see her post as well. Plan - Discharge Summary Discharge Rx Participant: Yes New Discharge Prescriptions: New Ibuprofen [Motrin] 600 mg PO Q6HR PRN #30 tab PRN Reason: Mild Pain Or Fever >= 100.5 No Action Emo-Itfc-Znosh Acid [-U Capsule (formulary)] 1 cap PO DAILY Insulin Lispro [humaLOG] 10 units SQ BID Discharge Medication List Yiq-Wlkc-Fcmjt Acid [-U Capsule (formulary)] 1 cap PO DAILY 06/18 [History] Insulin Lispro [humaLOG] 10 units SQ BID 04/13/17 [History] Ibuprofen [Motrin] 600 mg PO Q6HR PRN #30 tab 04/23/17 [Rx] Follow up Appointment(s)/Referral(s): Jennifer Rust MD [STAFF PHYSICIAN] - 1 Week Kellee Phillips DO [Doctor of Osteopathic Medicine] - 6 Weeks Activity/Diet/Wound Care/Special Instructions: Please continue your levemir 20 units at night (pen insulin) and stop all other insulins at this time. Continue to check Blood sugars times daily. If your sugars are >200 or less than 90 at home you should contact Lindsey the patient educator at maternal medicine immediately the office number is [phone]. You should establish with a family doctor to follow your sugars and determine if you can come off insulin. Dr. Rust is currently accepting new patients. Please try to see her in 1 week. You will need repeat HgB A1C in 6 weeks .
[2017-04-23 10:27] LABS: Glucose,Whole Blood 94 mg/dL (75-99)
--- NOTE | 2017-04-23 12:21 | P.PN ---
Subjective Progress Note Date: 04/23/17 Principal diagnosis: Gestational diabetes Patient is a 32-year-old female with a past medical history of gestational diabetes, prior tobacco abuse, and obesity who presented with labor. She subsequently delivered a baby boy at 33 3/7 weeks. Since delivery her insulin requirement have dramatically decreased. She received 10 units of levemir last night and her morning blood sugar was 72 her 2 hours post parandial was 94. She shows no need to be discharged home on insulin at this time. Patient s/e at bedside. Feeling well. Excited that her sugar was so low this morning. No dizziness, shaking, nausea. Complains of perineal pain and cramping. No other complaints. I discussed with her the need to establish with a PCP and have her A1C checked at 6 weeks post . She will also check her sugars twice daily for the next 10 days and call Lindsey if elevation as listed below. Objective - Vital Signs Vital signs: Vital Signs Temp 98.2 F 04/23/17 00:00 Pulse 80 04/23/17 00:00 Resp 16 04/23/17 00:00 BP 98/48 04/23/17 00:00 Pulse Ox 98 04/22/17 19:52 Intake & Output 04/22/17 04/23/17 04/23/17 18:59 06:59 18:59 Intake Total 750 Balance 750 Weight 89.358 kg Intake: IV 750 Lactated Ringers 1,000 ml 750 @ 125 mls/hr IV .Q8H [facility] Rx#:[id number] Other: # Voids 1 - Exam General: non toxic, no distress, appears at stated age Derm: warm, dry Head: atraumatic, normocephalic, symmetric Eyes: EOMI, no lid lag, anicteric sclera Cardiovascular: S1S2 reg, no murmur, positive posterior tibial pulse bilateral, Lungs: CTA bilateral, no rhonchi, no rales , no accessory muscle use Ext: no gross muscle atrophy, no edema, no contractures Neuro: CN II-XI grossly intact, no focal neuro deficits Psych: Alert, oriented, appropriate affect - Labs CBC & Chem 7: 04/23/17 07:36 Labs: Abnormal Lab Results - Last 24 Hours (Table) 04/22/17 04/22/17 04/22/17 Range/Units 11:01 11:25 15:37 WBC 15.3 H (3.8-10.6) k/uL RBC 3.70 L (3.80-5.40) m/uL Hgb 11.1 L (11.4-16.0) gm/dL Hct (34.0-46.0) % Neutrophils # 12.7 H (1.3-7.7) k/uL Monocytes # (0-1.0) k/uL POC Glucose (mg/dL) 105 H 187 H (75-99) mg/dL 04/22/17 04/22/17 04/23/17 Range/Units 18:49 21:24 07:15 WBC (3.8-10.6) k/uL RBC (3.80-5.40) m/uL Hgb (11.4-16.0) gm/dL Hct (34.0-46.0) % Neutrophils # (1.3-7.7) k/uL Monocytes # (0-1.0) k/uL POC Glucose (mg/dL) 171 H 210 H 72 L (75-99) mg/dL 04/23/17 Range/Units 07:36 WBC 18.2 H (3.8-10.6) k/uL RBC 3.55 L (3.80-5.40) m/uL Hgb 10.7 L (11.4-16.0) gm/dL Hct 32.1 L (34.0-46.0) % Neutrophils # 13.8 H (1.3-7.7) k/uL Monocytes # 1.2 H (0-1.0) k/uL POC Glucose (mg/dL) (75-99) mg/dL Assessment and Plan Assessment: Gestational diabetes, suspect true diabetes with early onset in and amount of insulin needed. -Maternal medicine at [place] contacted at [phone]. Patient was discharged home from the hospital on aspart 10 units a day before meals and Levemir 20U prior to breakfast and at night. - Will need repeat HgB A1C in 6 weeks if greater than 6 would confirm diabetes. -Intructions for patients added to dischage orders as follows: Please continue to check your blood sugars at home in the morning and then once a day 2 hours after a meal. Your morning blood sugar should be less than 126 and your blood sugars 2 hours after meals should be less than 180. Please check blood sugars for the next 10 days. If all blood sugars are less then these goals you can stop checking. If your blood sugar is greater than 180 in the morning or greater than 250 after meals at home you should contact Lindsey the machinist bench at maternal medicine immediately the office number is until you can be seen by Dr. Rust. delivery - management per AUTO DAMAGE TRAINEE Thank you for allowing us to participate in the care of this patient. Do not hesitate to contact us with questions. Someone can be reached from the [facility] hospitalist group at all hours of the day at [phone].
[2017-04-23 12:36] LABS: Glucose,Whole Blood 142 mg/dL (75-99)
[2017-04-23 16:47] VITALS: BP 122/67; PULSE 81; RESP 16; TEMP 98.1
== END 2017-04-23 16:09 | disposition home or self-care (01) | DRG 560 ==
LOC: FBPOP 10:19 → 4FBP 10:53
PROVIDERS: ADMIT Obstetrics & Gynecology; ATTEND Obstetrics & Gynecology
PROC: 10E0XZZ Delivery of Products of Conception, External Approach (ICD-10-PCS; principal; 2017-04-22)
PROC: 0KQM0ZZ Repair Perineum Muscle, Open Approach (ICD-10-PCS; 2017-04-22)
DX: O60.14X0 Preterm labor third trimester with preterm delivery third trimester, not applicable or unspecified (principal); O24.92 Unspecified diabetes mellitus in childbirth; O99.824 Streptococcus B carrier state complicating childbirth; O77.0 Labor and delivery complicated by meconium in amniotic fluid; O43.123 Velamentous insertion of umbilical cord, third trimester; O70.1 Second degree perineal laceration during delivery; O99.214 Obesity complicating childbirth; Z79.4 Long term (current) use of insulin; Z37.0 Single live birth; Z3A.33 33 weeks gestation of pregnancy; Z87.891 Personal history of nicotine dependence; Z80.49 Family history of malignant neoplasm of other genital organs; Z83.3 Family history of diabetes mellitus; Z88.0 Allergy status to penicillin; Z91.048 Other nonmedicinal substance allergy status
CPT/HCPCS: 59025; 83036; 85025; 88307; 99213

== ENCOUNTER 2017-12-28 16:35 | Inpatient (IN) | payer OTHER ==
--- NOTE | 2017-12-28 16:55 | ED ---
Abdominal Pain HPI - General Source: patient Mode of arrival: ambulatory Limitations: no limitations - History of Present Illness MD Complaint: abdominal pain -: hour(s) (12) Location: epigastric Migration to: other (Around back) Quality: cramping, aching Consistency: constant Improves With: nothing Worsens With: nothing Associated Symptoms: nausea Treatments Prior to Arrival: NSAIDs <Marybeth Beyer - Last Filed: 12/28/17 19:27> <Jefferson Ascencio - Last Filed: 12/28/17 19:35> - General Chief Complaint: Abdominal Pain Stated Complaint: Abd Pain Time Seen by Provider: 12/28/17 16:42 - History of Present Illness Initial Comments: 32 year old female complaining of epigastric discomfort that woke up at 2:30 this morning. Patient states it wraps around her back. Patient feels nauseous but no vomiting patient had one episode of loose bowels. Patient 8 months and is breast-feeding. No surgical history. No vaginal discharge. no dysuria. Patient's been on metformin 1000 twice a day for one week. Patient has a history of gestational diabetes. (Marybeth Beyer) - Related Data Home Medications Medication Instructions Recorded Confirmed Gyj-Aqfm-Etzpl Acid 1 cap PO DAILY 10/31/16 04/13/17 [-U Capsule (formulary)] Insulin Lispro [humaLOG] 10 units SQ BID 04/13/17 04/13/17 Previous Rx's Medication Instructions Recorded Ibuprofen [Motrin] 600 mg PO Q6HR PRN #30 tab 04/23/17 Allergies Allergy/AdvReac Type Severity Reaction Status Date / Time grass pollen Allergy Unknown Verified 12/28/17 16:59 Penicillins Allergy Anaphylaxis Verified 12/28/17 16:59 pollen extracts Allergy Unknown Verified 12/28/17 16:59 Review of Systems ROS Other: All systems not noted in ROS Statement are negative. Constitutional: Denies: fever, chills ENT: Denies: ear pain, throat pain Respiratory: Denies: cough, dyspnea Gastrointestinal: Reports: abdominal pain, nausea, diarrhea Neurological: Denies: headache, weakness <Marybeth Beyer - Last Filed: 12/28/17 19:27> ROS Other: All systems not noted in ROS Statement are negative. <Jefferson Ascencio - Last Filed: 12/28/17 19:35> ROS Statement: Those systems with pertinent positive or pertinent negative responses have been documented in the HPI. Past Medical History Past Medical History: No Reported History, Diabetes Mellitus Additional Past Medical History / Comment(s): HX ABNORMAL PAP, GESTATIONAL DIABETES X 2 History of Any Multi-Drug Resistant Organisms: None Reported Additional Past Surgical History / Comment(s): Eye surgery for strabismus. LEEP excision of the cervix (after the delivery of her last baby.) Patient's had 2 previous term deliveries. Past Anesthesia/Blood Transfusion Reactions: No Reported Reaction Past Psychological History: No Psychological Hx Reported Smoking Status: Never smoker Past Alcohol Use History: None Reported Past Drug Use History: None Reported - Past Family History Father Family Medical History: Cancer Additional Family Medical History / Comment(s): COLON Mother Family Medical History: Cancer, Diabetes Mellitus Additional Family Medical History / Comment(s): BREAST AND UTERINE CA <Marybeth Beyer - Last Filed: 12/28/17 19:27> General Exam Limitations: no limitations General appearance: alert, in no apparent distress Eye exam: Present: normal appearance, PERRL, EOMI. Absent: scleral icterus, conjunctival injection, periorbital swelling ENT exam: Present: normal exam, mucous membranes moist Respiratory exam: Present: normal lung sounds bilaterally. Absent: respiratory distress, wheezes, rales, rhonchi, stridor Cardiovascular Exam: Present: regular rate, normal rhythm, normal heart sounds. Absent: systolic murmur, diastolic murmur, rubs, gallop, clicks GI/Abdominal exam: Present: soft, tenderness (epigastric), normal bowel sounds. Absent: distended, guarding, rebound, rigid Back exam: Present: normal inspection Neurological exam: Present: alert, oriented X3, CN II-XII intact Psychiatric exam: Present: normal affect, normal mood Skin exam: Present: warm, dry, intact, normal color. Absent: rash <Marybeth Beyer - Last Filed: 12/28/17 19:27> Course <Marybeth Beyer - Last Filed: 12/28/17 19:27> <Jefferson Ascencio - Last Filed: 12/28/17 19:35> Vital Signs 12/28/17 12/28/17 16:36 19:26 Temperature 99.0 F Pulse Rate 83 81 Respiratory 18 18 Rate Blood Pressure 142/89 123/69 O2 Sat by Pulse 98 99 Oximetry - Reevaluation(s) Reevaluation #1: 12/28/17 19:31 Page supervision: I did personally do a [id number] evaluation patient did discuss findings with her. Patient does have some epigastric tenderness palpation imaging shows evidence of cholelithiasis and cholecystitis with a dilated common bile duct. Additionally lab work shows evidence of cholecystitis and pancreatitis. (Jefferson Ascencio) Reevaluation #2: 12/28/17 19:32 I did discuss case with Dr. Cortes. Patient be admitted with consultation by Dr. Pelayo for possible ERCP. The patient is in agreement with this. (Jefferson Ascencio) Medical Decision Making - Lab Data Result diagrams: 12/28/17 17:20 12/28/17 17:20 <Marybeth Beyer - Last Filed: 12/28/17 19:27> - Lab Data Result diagrams: 12/28/17 17:20 12/28/17 17:20 <Jefferson Ascencio - Last Filed: 12/28/17 19:35> - Medical Decision Making Reviewed labs patient's liver enzymes were extremely elevated along with her lipase ordered an ultrasound of abdomen to rule out any gallbladder etiologies. Ultrasound revealed all stones probable acute cholecystitis patient aware Dr. Ascencio contacted surgical consult which is about Dr. Cortes will except the patient. Dr. Ascencio will be taking over care (Marybeth Beyer) - Lab Data Lab Results 12/28/17 12/28/17 12/28/17 Range/Units 17:20 17:20 17:20 WBC 8.0 (3.8-10.6) k/uL RBC 4.61 (3.80-5.40) m/uL Hgb 13.5 (11.4-16.0) gm/dL Hct 40.9 (34.0-46.0) % MCV 88.7 (80.0-100.0) fL MCH 29.4 (25.0-35.0) pg MCHC 33.1 (31.0-37.0) g/dL RDW 12.8 (11.5-15.5) % Plt Count 274 (150-450) k/uL Neutrophils % 77 % Lymphocytes % 13 % Monocytes % 7 % Eosinophils % 2 % Basophils % 0 % Neutrophils # 6.2 (1.3-7.7) k/uL Lymphocytes # 1.1 (1.0-4.8) k/uL Monocytes # 0.6 (0-1.0) k/uL Eosinophils # 0.1 (0-0.7) k/uL Basophils # 0.0 (0-0.2) k/uL Sodium 138 (137-145) mmol/L Potassium 4.1 (3.5-5.1) mmol/L Chloride 105 (98-107) mmol/L Carbon Dioxide 27 (22-30) mmol/L Anion Gap 6 mmol/L BUN 7 (7-17) mg/dL Creatinine 0.50 L (0.52-1.04) mg/dL Est GFR (CKD-EPI)AfAm >90 (>60 ml/min/1.73 sqM) Est GFR (CKD-EPI)NonAf >90 (>60 ml/min/1.73 sqM) Glucose 207 H (74-99) mg/dL Calcium 9.2 (8.4-10.2) mg/dL Total Bilirubin 2.0 H (0.2-1.3) mg/dL AST 656 H (14-36) U/L ALT 348 H (9-52) U/L Alkaline Phosphatase 129 H (38-126) U/L Total Protein 6.7 (6.3-8.2) g/dL Albumin 4.1 (3.5-5.0) g/dL Amylase 75 (30-110) U/L Lipase 894 H (23-300) U/L Urine Color Dark Yellow Urine Appearance Cloudy H (Clear) Urine pH 6.5 (5.0-8.0) Ur Specific [place] 1.028 (1.001-1.035) Urine Protein 1+ H (Negative) Urine Glucose (UA) 4+ H (Negative) Urine Ketones Trace H (Negative) Urine Blood Negative (Negative) Urine Nitrite Negative (Negative) Urine Bilirubin 2+ H (Negative) Urine Urobilinogen 12.0 (<2.0) mg/dL Ur Leukocyte Esterase Large H (Negative) Urine RBC 5 (0-5) /hpf Urine WBC 35 H (0-5) /hpf Ur Squamous Epith Cells 21 H (0-4) /hpf Urine Mucus Few H (None) /hpf Urine HCG, Qual (Not Detectd) 12/28/17 Range/Units 17:20 WBC (3.8-10.6) k/uL RBC (3.80-5.40) m/uL Hgb (11.4-16.0) gm/dL Hct (34.0-46.0) % MCV (80.0-100.0) fL MCH (25.0-35.0) pg MCHC (31.0-37.0) g/dL RDW (11.5-15.5) % Plt Count (150-450) k/uL Neutrophils % % Lymphocytes % % Monocytes % % Eosinophils % % Basophils % % Neutrophils # (1.3-7.7) k/uL Lymphocytes # (1.0-4.8) k/uL Monocytes # (0-1.0) k/uL Eosinophils # (0-0.7) k/uL Basophils # (0-0.2) k/uL Sodium (137-145) mmol/L Potassium (3.5-5.1) mmol/L Chloride (98-107) mmol/L Carbon Dioxide (22-30) mmol/L Anion Gap mmol/L BUN (7-17) mg/dL Creatinine (0.52-1.04) mg/dL Est GFR (CKD-EPI)AfAm (>60 ml/min/1.73 sqM) Est GFR (CKD-EPI)NonAf (>60 ml/min/1.73 sqM) Glucose (74-99) mg/dL Calcium (8.4-10.2) mg/dL Total Bilirubin (0.2-1.3) mg/dL AST (14-36) U/L ALT (9-52) U/L Alkaline Phosphatase (38-126) U/L Total Protein (6.3-8.2) g/dL Albumin (3.5-5.0) g/dL Amylase (30-110) U/L Lipase (23-300) U/L Urine Color Urine Appearance (Clear) Urine pH (5.0-8.0) Ur Specific [place] (1.001-1.035) Urine Protein (Negative) Urine Glucose (UA) (Negative) Urine Ketones (Negative) Urine Blood (Negative) Urine Nitrite (Negative) Urine Bilirubin (Negative) Urine Urobilinogen (<2.0) mg/dL Ur Leukocyte Esterase (Negative) Urine RBC (0-5) /hpf Urine WBC (0-5) /hpf Ur Squamous Epith Cells (0-4) /hpf Urine Mucus (None) /hpf Urine HCG, Qual Not Detected (Not Detectd) Disposition <Marybeth Beyer - Last Filed: 12/28/17 19:27> <Jefferson Ascencio - Last Filed: 12/28/17 19:35> Clinical Impression: Acute abdomen, Cholelithiases, Acute cholecystitis, Hyperbilirubinemia, Pancreatitis, Common bile duct dilatation Disposition: ADMITTED IP TO THIS HOSP Condition: Serious Referrals: Jennifer Rust MD [Primary Care Provider] - 1-2 days
[2017-12-28 17:30] LABS: Basophils % (A) 0 %; Eosinophils # (A) 0.1 k/uL (0-0.7); Eosinophils % (A) 2 %; HCT 40.9 % (34.0-46.0); HGB 13.5 gm/dL (11.4-16.0); Lymphocytes # (A) 1.1 k/uL (1.0-4.8); Lymphocytes % (A) 13 %; MCH 29.4 pg (25.0-35.0); MCHC 33.1 g/dL (31.0-37.0); MCV 88.7 fL (80.0-100.0); Mean Platelet Volume 6.4; Monocytes # (A) 0.6 k/uL (0-1.0); Monocytes % (A) 7 %; Neutrophils # (A) 6.2 k/uL (1.3-7.7); Neutrophils % (A) 77 %; Platelet Count 274 k/uL (150-450); RBC 4.61 m/uL (3.80-5.40); RDW 12.8 % (11.5-15.5)
[2017-12-28 17:33] LABS: Appearance,Urine Cloudy (Clear); Bilirubin,Urine 2+ (Negative); Blood,Urine Negative (Negative); Color,Urine Dark Yellow; Glucose,Urine (UA) 4+ (Negative); Ketones,Urine Trace (Negative); Leukocyte Esterase,Urine Large (Negative); Mucus,Urine Few /hpf; Nitrite,Urine Negative (Negative); PH, Urine 6.5 (5.0-8.0); Protein,Urine 1+ (Negative); RBC,Urine 5 /hpf (0-5); Specific Gravity,Urine 1.028 (1.001-1.035); Squamous Epithelial Cell,Urine 21 /hpf (0-4); WBC,Urine 35 /hpf (0-5)
[2017-12-28 17:39] LABS: ALT 348 U/L (9-52); AST 656 U/L (14-36); Albumin 4.1 g/dL (3.5-5.0); Alkaline Phosphatase 129 U/L (38-126); Amylase 75 U/L (30-110); Anion Gap 6 mmol/L; Blood Urea Nitrogen 7 mg/dL (7-17); Calcium 9.2 mg/dL (8.4-10.2); Carbon Dioxide 27 mmol/L (22-30); Chloride 105 mmol/L (98-107); Glucose 207 mg/dL (74-99); Lipase 894 U/L (23-300); Potassium 4.1 mmol/L (3.5-5.1); Sodium 138 mmol/L (137-145); Total Protein 6.7 g/dL (6.3-8.2)
--- NOTE | 2017-12-28 18:49 | US ---
EXAMINATION TYPE: US abdomen complete DATE OF EXAM: 12/28/2017 COMPARISON: NONE CLINICAL HISTORY: Pain. RUQ pain that extends to left side of back, ate 3hrs prior to exam EXAM MEASUREMENTS: Liver Length: 15.6 cm Gallbladder Wall: 0.3 cm CBD: 0.7 cm Spleen: 12.6 cm Right Kidney: 11.1 x 5.0 x 4.7 cm Left Kidney: 10.9 x 5.3 x 5.1 cm Pancreas: wnl Liver: wnl Gallbladder: multiple choleliths, mobile stone seen within borderline wall thickness Evidence for sonographic Colon's sign: YES CBD: wnl Spleen: upper limits of normal for size Right Kidney: wnl Left Kidney: wnl Upper IVC: wnl Abd Aorta: wnl The liver is homogenous. The intrahepatic portion of the IVC and proximal abdominal aorta are within normal limits. The visualized portions of the pancreas are homogenous. The spleen is unremarkable. Kidneys are symmetric and free of hydronephrosis. No renal lesions are seen. IMPRESSION: Multiple gallstones, gallbladder wall thickening with enlarged common bile duct and a positive sonogr aphic Colon's sign. These findings are highly suspicious for acute cholecystitis. Findings were discussed with Dr. Jefferson Ascencio by Dr. Fontanez on 12/28/17 at 1845 hours.
[2017-12-28] MEDS ORDERED: NALOXONE 0.4 MG/ML 1 ML VIAL IV PRN (19:35)
[2017-12-28] MEDS: SODIUM CHLORIDE 0.9% 1,000 ML IV SCH (20:09)
[2017-12-28 20:50] VITALS: BMI 30.2
[2017-12-28 21:13] LABS: Glucose,Whole Blood 168 mg/dL (75-99)
[2017-12-28] MEDS: INSULIN ASPART 100 UNIT/ML 1 ML 10 ML VIAL SQ SCH (21:27)
[2017-12-28] MEDS: HYDROmorphone 1 MG/ML 1 ML SYRINGE IVP PRN (21:30)
[2017-12-28] MEDS: CIPROFLOXACIN/DEXTROSE PMX 400 MG in DEXTROSE/WATER 1 200ML.BAG IVPB SCH (21:31)
[2017-12-28] MEDS: ONDANSETRON 4 MG/2 ML VIAL IVP PRN (22:16)
[2017-12-28] MEDS: metroNIDAZOLE-NS PMX 500 MG in SALINE 1 100ML.BAG IVPB SCH (23:45)
[2017-12-29] MEDS: SODIUM CHLORIDE 0.9% 1,000 ML IV SCH ×3 (05:13→23:49)
[2017-12-29 07:17] LABS: Glucose,Whole Blood 160 mg/dL (75-99)
[2017-12-29] MEDS: PANTOPRAZOLE 40 MG/10 ML VIAL IV SCH (07:59)
[2017-12-29] MEDS: metroNIDAZOLE-NS PMX 500 MG in SALINE 1 100ML.BAG IVPB SCH ×3 (07:59→23:49)
[2017-12-29] MEDS: INSULIN ASPART 100 UNIT/ML 1 ML 10 ML VIAL SQ SCH ×4 (08:00→21:37)
[2017-12-29] MEDS: CIPROFLOXACIN/DEXTROSE PMX 400 MG in DEXTROSE/WATER 1 200ML.BAG IVPB SCH ×2 (09:01→20:11)
[2017-12-29 11:39] LABS: Glucose,Whole Blood 143 mg/dL (75-99)
[2017-12-29] MEDS: ONDANSETRON 4 MG/2 ML VIAL IVP PRN (12:01)
[2017-12-29] MEDS: HYDROmorphone 1 MG/ML 1 ML SYRINGE IVP PRN (12:01)
[2017-12-29 13:29] LABS: Basophils % (A) 0 %; Eosinophils # (A) 0.2 k/uL (0-0.7); Eosinophils % (A) 3 %; HCT 39.1 % (34.0-46.0); HGB 12.9 gm/dL (11.4-16.0); Lymphocytes # (A) 1.7 k/uL (1.0-4.8); Lymphocytes % (A) 25 %; MCV 90.7 fL (80.0-100.0); Mean Platelet Volume 6.6; Monocytes # (A) 0.4 k/uL (0-1.0); Monocytes % (A) 5 %; Neutrophils # (A) 4.4 k/uL (1.3-7.7); Neutrophils % (A) 65 %; Platelet Count 257 k/uL (150-450); RBC 4.31 m/uL (3.80-5.40); RDW 13.1 % (11.5-15.5); WBC 6.8 k/uL (3.8-10.6)
[2017-12-29 13:41] LABS: ALT 390 U/L (9-52); AST 338 U/L (14-36); Albumin 3.8 g/dL (3.5-5.0); Alkaline Phosphatase 148 U/L (38-126); Anion Gap 8 mmol/L; Blood Urea Nitrogen 4 mg/dL (7-17); Calcium 8.6 mg/dL (8.4-10.2); Carbon Dioxide 24 mmol/L (22-30); Chloride 109 mmol/L (98-107); Glucose 116 mg/dL (74-99); Potassium 3.9 mmol/L (3.5-5.1); Sodium 141 mmol/L (137-145); Total Bilirubin 0.9 mg/dL (0.2-1.3); Total Protein 6.3 g/dL (6.3-8.2)
--- NOTE | 2017-12-29 15:13 | P.GSHP ---
History of Present Illness H&P Date: 12/29/17 Chief Complaint: Choledocholithiasis 32-year-old female presents to the hospital with complaints of epigastric pain with radiation to the back. Also noticed dark-colored urine and that persists. Pain slightly better today but still present. Yesterday's liver enzyme elevation has improved today. No history of similar events. Patient is 8 months . Was having episodes of nausea and vomiting as well. No weight loss. No alcohol use. - Review of Systems Comment: The patient denies any acute changes in vision or hearing, no dysphagia or odynophagia, no chest pain or shortness of breath, no dysuria or hematuria, no headache, no runny nose, no rectal bleeding or melena, no unexplained weight loss Past Medical History Past Medical History: No Reported History, Diabetes Mellitus Additional Past Medical History / Comment(s): Type 2 diabetes History of Any Multi-Drug Resistant Organisms: None Reported Additional Past Surgical History / Comment(s): Eye surgery for strabismus. LEEP excision of the cervix (after the delivery of her last baby.) Patient's had 2 previous term deliveries. Past Anesthesia/Blood Transfusion Reactions: No Reported Reaction Past Psychological History: No Psychological Hx Reported Smoking Status: Never smoker Past Alcohol Use History: None Reported Additional Past Alcohol Use History / Comment(s): QUIT SMOKING AGE 24 (1999), STARTED 1995, SMOKED LESS THAN ONE PPD Past Drug Use History: None Reported - Past Family History Father Family Medical History: Cancer Additional Family Medical History / Comment(s): COLON Mother Family Medical History: Cancer, Diabetes Mellitus Additional Family Medical History / Comment(s): BREAST AND UTERINE CA Medications and Allergies Home Medications Medication Instructions Recorded Confirmed Type Gtk-Nove-Sntua Acid 1 cap PO DAILY 10/31/16 12/29/17 History [-U Capsule (formulary)] Ibuprofen [Motrin] 600 mg PO Q6HR PRN #30 tab 04/23/17 12/29/17 Rx metFORMIN HCL 1,000 mg PO BID 12/28/17 12/29/17 History Norethindrone [Hazel] 0.35 mg PO DAILY 12/29/17 12/29/17 History Allergies Allergy/AdvReac Type Severity Reaction Status Date / Time grass pollen Allergy Unknown Verified 12/29/17 07:21 Penicillins Allergy Anaphylaxis Verified 12/29/17 07:21 pollen extracts Allergy Unknown Verified 12/29/17 07:21 Surgical - Exam Vital Signs Temp Pulse Resp BP Pulse Ox 99.0 F 83 18 142/89 98 12/28/17 16:36 12/28/17 16:36 12/28/17 16:36 12/28/17 16:36 12/28/17 16:36 Physical exam: General: Well-developed, well-nourished HEENT: Normocephalic, sclerae nonicteric Abdomen: Mild epigastric tenderness, nondistended Extremities: No edema Neuro: Alert and oriented Results - Labs 12/29/17 13:10 12/29/17 13:10 Abnormal Lab Results - Last 24 Hours (Table) 12/28/17 12/28/17 12/28/17 Range/Units 17:20 17:20 21:10 Chloride (98-107) mmol/L BUN (7-17) mg/dL Creatinine 0.50 L (0.52-1.04) mg/dL Glucose 207 H (74-99) mg/dL POC Glucose (mg/dL) 168 H (75-99) mg/dL Total Bilirubin 2.0 H (0.2-1.3) mg/dL AST 656 H (14-36) U/L ALT 348 H (9-52) U/L Alkaline Phosphatase 129 H (38-126) U/L Lipase 894 H (23-300) U/L Urine Appearance Cloudy H (Clear) Urine Protein 1+ H (Negative) Urine Glucose (UA) 4+ H (Negative) Urine Ketones Trace H (Negative) Urine Bilirubin 2+ H (Negative) Ur Leukocyte Esterase Large H (Negative) Urine WBC 35 H (0-5) /hpf Ur Squamous Epith Cells 21 H (0-4) /hpf Urine Mucus Few H (None) /hpf 12/29/17 12/29/17 12/29/17 Range/Units 07:14 11:36 13:10 Chloride 109 H (98-107) mmol/L BUN 4 L (7-17) mg/dL Creatinine 0.50 L (0.52-1.04) mg/dL Glucose 116 H (74-99) mg/dL POC Glucose (mg/dL) 160 H 143 H (75-99) mg/dL Total Bilirubin (0.2-1.3) mg/dL AST 338 H (14-36) U/L ALT 390 H (9-52) U/L Alkaline Phosphatase 148 H (38-126) U/L Lipase (23-300) U/L Urine Appearance (Clear) Urine Protein (Negative) Urine Glucose (UA) (Negative) Urine Ketones (Negative) Urine Bilirubin (Negative) Ur Leukocyte Esterase (Negative) Urine WBC (0-5) /hpf Ur Squamous Epith Cells (0-4) /hpf Urine Mucus (None) /hpf Diabetes panel 12/28/17 12/29/17 Range/Units 17:20 13:10 Sodium 138 141 (137-145) mmol/L Potassium 4.1 3.9 (3.5-5.1) mmol/L Chloride 105 109 H (98-107) mmol/L Carbon Dioxide 27 24 (22-30) mmol/L BUN 7 4 L (7-17) mg/dL Creatinine 0.50 L 0.50 L (0.52-1.04) mg/dL Glucose 207 H 116 H (74-99) mg/dL Calcium 9.2 8.6 (8.4-10.2) mg/dL AST 656 H 338 H (14-36) U/L ALT 348 H 390 H (9-52) U/L Alkaline Phosphatase 129 H 148 H (38-126) U/L Total Protein 6.7 6.3 (6.3-8.2) g/dL Albumin 4.1 3.8 (3.5-5.0) g/dL Calcium panel 12/28/17 12/29/17 Range/Units 17:20 13:10 Calcium 9.2 8.6 (8.4-10.2) mg/dL Albumin 4.1 3.8 (3.5-5.0) g/dL Pituitary panel 12/28/17 12/29/17 Range/Units 17:20 13:10 Sodium 138 141 (137-145) mmol/L Potassium 4.1 3.9 (3.5-5.1) mmol/L Chloride 105 109 H (98-107) mmol/L Carbon Dioxide 27 24 (22-30) mmol/L BUN 7 4 L (7-17) mg/dL Creatinine 0.50 L 0.50 L (0.52-1.04) mg/dL Glucose 207 H 116 H (74-99) mg/dL Calcium 9.2 8.6 (8.4-10.2) mg/dL Adrenal panel 12/28/17 12/29/17 Range/Units 17:20 13:10 Sodium 138 141 (137-145) mmol/L Potassium 4.1 3.9 (3.5-5.1) mmol/L Chloride 105 109 H (98-107) mmol/L Carbon Dioxide 27 24 (22-30) mmol/L BUN 7 4 L (7-17) mg/dL Creatinine 0.50 L 0.50 L (0.52-1.04) mg/dL Glucose 207 H 116 H (74-99) mg/dL Calcium 9.2 8.6 (8.4-10.2) mg/dL Total Bilirubin 2.0 H 0.9 (0.2-1.3) mg/dL AST 656 H 338 H (14-36) U/L ALT 348 H 390 H (9-52) U/L Alkaline Phosphatase 129 H 148 H (38-126) U/L Total Protein 6.7 6.3 (6.3-8.2) g/dL Albumin 4.1 3.8 (3.5-5.0) g/dL Assessment and Plan (1) Choledocholithiasis Narrative/Plan: Continue clear liquids. Continue empiric antibiotics. Appreciate GI evaluation. Repeat labs tomorrow. Current Visit: Yes Status: Acute Code(s): K80.50 - CALCULUS OF BILE DUCT W/ O CHOLANGITIS OR CHOLECYST W/O OBST SNOMED Code(s): 016427297
[2017-12-29] MEDS: HEPARIN SODIUM,PORCINE 5,000 UNIT/ML 1 ML VIAL SQ SCH ×2 (16:18→23:49)
[2017-12-29] MEDS ORDERED: ACETAMINOPHEN TAB 325 MG TAB PO PRN ×2 (16:55→17:02)
[2017-12-29 17:06] LABS: Glucose,Whole Blood 157 mg/dL (75-99)
--- NOTE | 2017-12-29 21:22 | CONS ---
CONSULTATION DATE OF SERVICE: 12/29/2017 REASON FOR CONSULTATION: Elevated LFTs, abdominal pain/gallstones. HISTORY OF PRESENT ILLNESS: The patient is a 32 -year-old pleasant white female who was admitted to the hospital with acute onset of severe epigastric pain that started yesterday. The patient continued to progressively get worse and associated with nausea and vomiting noted to have elevated LFTs and hence we are consulted for possible ERCP. She did have an ultrasound of the gallbladder done that showed evidence of gallstones but no biliary ductal dilation. She is feeling much better. She still has some vague epigastric discomfort. She denies any nausea, vomiting. No fever, chills, or night sweats. Never had these symptoms in the past. PAST MEDICAL HISTORY: Unremarkable. PAST SURGICAL HISTORY: Past surgical history unremarkable. MEDICATIONS: At home metformin . Medications at home medications: Metformin, vitamin, and Motrin. ALLERGIES: PENICILLIN. SOCIAL HISTORY: No smoking. No alcohol use. FAMILY HISTORY: Unremarkable. REVIEW OF SYSTEMS: shortness of breath. GENITOURINARY: No dysuria or hematuria. MUSCULOSKELETAL: Unremarkable. SKIN: Unremarkable. ENDOCRINE: Unremarkable. PSYCHIATRIC: Unremarkable. NEUROLOGICAL: Unremarkable. ENT/VISION: Unremarkable. CONSTITUTIONAL: No recent weight loss. No fevers, chills . PHYSICAL EXAMINATION: She appears comfortable in no apparent distress. Vital signs stable. pulse rate temperature 98.4. HEENT examination unremarkable. Conjunctivae pink. Sclerae anicteric. Oral cavity no lesions. NECK: No jugular venous distention or lymph node enlargement. . Bowel sounds positive. No organomegaly. EXTREMITIES: No pedal edema. SKIN: No rashes. NEUROLOGICAL: no focal deficits. LABORATORY DATA: today's CBC is normal. AST/ALT respectively. Today we are done to 338 respectively. 148, T-bili is down to 0.9, yesterday it was 2. IMPRESSION: This is a lady who presents with acute onset of severe epigastric pain associated with nausea, vomiting of 2 days duration noted to have elevated LFTs and CBD stones. However, serum transaminase has improved but the T bilirubin has normalized making she may have consequently passed CBD stone. Ultrasound did show evidence of gallstones with a CBD 7 mm in diameter. RECOMMENDATIONS: I had a lengthy discussion with the patient regarding further workup. If LFTs increase or get worse, we will consider an ERCP. However if the LFTs continue to trend downward, proceed with . The plan was discussed with the patient. She is agreeable to it. Thank you for this consultation. MMODL / IJN: [id number] /
[2017-12-29 21:38] LABS: Glucose,Whole Blood 183 mg/dL (75-99)
[2017-12-30 06:54] LABS: Glucose,Whole Blood 115 mg/dL (75-99)
[2017-12-30 07:26] LABS: ALT 244 U/L (9-52); AST 123 U/L (14-36); Albumin 3.1 g/dL (3.5-5.0); Alkaline Phosphatase 125 U/L (38-126); Anion Gap 6 mmol/L; Blood Urea Nitrogen 4 mg/dL (7-17); Calcium 8.4 mg/dL (8.4-10.2); Carbon Dioxide 24 mmol/L (22-30); Chloride 110 mmol/L (98-107); Glucose 114 mg/dL (74-99); Potassium 3.8 mmol/L (3.5-5.1); Sodium 140 mmol/L (137-145); Total Bilirubin 0.4 mg/dL (0.2-1.3); Total Protein 5.3 g/dL (6.3-8.2)
[2017-12-30] MEDS: PANTOPRAZOLE 40 MG/10 ML VIAL IV SCH (07:45)
[2017-12-30] MEDS: HEPARIN SODIUM,PORCINE 5,000 UNIT/ML 1 ML VIAL SQ SCH ×2 (07:45→16:26)
[2017-12-30] MEDS: metroNIDAZOLE-NS PMX 500 MG in SALINE 1 100ML.BAG IVPB SCH ×2 (07:45→16:26)
[2017-12-30] MEDS: INSULIN ASPART 100 UNIT/ML 1 ML 10 ML VIAL SQ SCH ×4 (08:32→21:00)
--- NOTE | 2017-12-30 10:36 | P.PN ---
Subjective Progress Note Date: 12/30/17 Principal diagnosis: Abdominal pain elevated liver enzymes Abdominal pain improved. Transaminases improved. Afebrile. Objective - Vital Signs Vital signs: Vital Signs Temp 97.5 F L 12/30/17 07:55 Pulse 73 12/30/17 07:55 Resp 17 12/30/17 07:55 BP 98/63 12/30/17 07:55 Pulse Ox 95 12/30/17 07:55 Intake & Output 12/29/17 12/30/17 12/30/17 18:59 06:59 18:59 Intake Total 1800 600 Output Total 300 400 Balance 1500 200 Intake: Oral 1800 600 Output: Urine 300 400 Other: Voiding Method Toilet # Voids 4 2 - Exam General appearance: The patient is alert, oriented, in no acute distress. HET: Head is normocephalic and atraumatic. Pupils are equal and reactive. Oropharynx is clear without lesions. Neck: Supple without lymphadenopathy. Trachea midline. Heart: S1 S2. Regular rate and rhythm. Lungs: No crackles or wheezes are heard. Abdomen: Soft, nontender, nondistended with bowel sounds. No peritoneal signs. No palpable organomegaly or masses. Extremities: Normal skin color and turgor. No cyanosis, rash, ulceration, clubbing, or edema. Radial and pedal pulses are 2/4 bilaterally. Neurological: No focal deficits. Strength and sensation are grossly intact. - Labs CBC & Chem 7: 12/29/17 13:10 12/30/17 06:29 Labs: Abnormal Lab Results - Last 24 Hours (Table) 12/29/17 12/29/17 12/29/17 Range/Units 11:36 13:10 17:03 Chloride 109 H (98-107) mmol/L BUN 4 L (7-17) mg/dL Creatinine 0.50 L (0.52-1.04) mg/dL Glucose 116 H (74-99) mg/dL POC Glucose (mg/dL) 143 H 157 H (75-99) mg/dL AST 338 H (14-36) U/L ALT 390 H (9-52) U/L Alkaline Phosphatase 148 H (38-126) U/L Total Protein (6.3-8.2) g/dL Albumin (3.5-5.0) g/dL 12/29/17 12/30/1712/30/18 Range/Units 21:25 06:29 06:52 Chloride 110 H (98-107) mmol/L BUN 4 L (7-17) mg/dL Creatinine (0.52-1.04) mg/dL Glucose 114 H (74-99) mg/dL POC Glucose (mg/dL) 183 H 115 H (75-99) mg/dL AST 123 H (14-36) U/L ALT 244 H (9-52) U/L Alkaline Phosphatase (38-126) U/L Total Protein 5.3 L (6.3-8.2) g/dL Albumin 3.1 L (3.5-5.0) g/dL Assessment and Plan (1) Epigastric pain Narrative/Plan: Suspect passage of choledocholithiasis with improvement in liver function tests and abdominal pain Current Visit: Yes Status: Acute Code(s): R10.13 - EPIGASTRIC PAIN SNOMED Code(s): 44999247 (2) Cholelithiases Current Visit: Yes Status: Acute Code(s): K80.20 - CALCULUS OF GALLBLADDER W /O CHOLECYSTITIS W/O OBSTRUCTION SNOMED Code(s): 523971601 Plan: 1. From a GI standpoint no further workup. ERCP not indicated. Cholecystectomy per general surgery recommendations. 2. We'll follow as needed. Assessment and plan a care discussed with Dr. Pelayo
[2017-12-30 11:26] LABS: Glucose,Whole Blood 113 mg/dL (75-99)
[2017-12-30] MEDS: CIPROFLOXACIN/DEXTROSE PMX 400 MG in DEXTROSE/WATER 1 200ML.BAG IVPB SCH ×2 (11:37→20:46)
[2017-12-30] MEDS ORDERED: IV FLUID CONTINUATION 1,000 ML IV ONE (12:58)
--- NOTE | 2017-12-30 12:58 | P.PN ---
Progress Note - Text Progress Note Date: 12/30/17 Patient's labs were checked once again this morning. Liver enzymes continued to decrease. Her pain is for the most part resolved. Her urine has been steel fabricator in color. GI has no plans for MRCP or ERCP at this time. The patient I discussed these options in these findings in detail. We have decided to proceed with laparoscopic cholecystectomy, possible open cholecystectomy today. She understands that there is a small but real risk of a retained common bile duct stone. If her symptoms recur postoperatively we'll plan ERCP at that time. Risks of bleeding, infection, bile leak, bile duct injury, retained common bile duct stone, trocar injury, conversion to an open procedure, potential findings of other etiologies for her pain requiring additional procedures, hernia, anesthesia related complications were reviewed. The patient understands and wishes to proceed.
[2017-12-30 13:05] LABS: Glucose,Whole Blood 148 mg/dL (75-99)
[2017-12-30] MEDS: ONDANSETRON 4 MG/2 ML VIAL IVP PRN (13:12)
[2017-12-30] MEDS ORDERED: MIDAZOLAM 2 MG/2 ML VIAL ONE (13:35)
[2017-12-30] MEDS ORDERED: NEOSTIGMINE 1 MG/ML 10 ML VIAL ONE (13:35)
[2017-12-30] MEDS ORDERED: ROCURONIUM BROMIDE 10 MG/ML 10 ML VIAL IV ONE (13:35)
[2017-12-30] MEDS ORDERED: LIDOCAINE 1% INJ 10MG/ML (20 ML MDV) ONE (13:35)
[2017-12-30] MEDS ORDERED: HYDROmorphone (PF) 1 MG/ML ONE (13:35)
[2017-12-30] MEDS ORDERED: GLYCOPYRROLATE 0.2 MG/ML 2 ML VIAL ONE (13:35)
[2017-12-30] MEDS ORDERED: SUCCINYLCHOLINE CHLORIDE 100 MG/5 ML SYR IV ONE (13:35)
[2017-12-30] MEDS ORDERED: fentaNYL (PF) 50 MCG/ML 2 ML AMP ONE (13:35)
[2017-12-30] MEDS ORDERED: PROPOFOL 10 MG/ML 20 ML VIAL IV ONE (13:35)
[2017-12-30] MEDS ORDERED: BUPIVACAIN-EPI 0.5%-1:200,000 30 ML VIAL SQ ONE ×2 (13:58)
--- NOTE | 2017-12-30 14:27 | P.OP ---
Date of Procedure: 12/30/17 Procedure(s) Performed: PREOPERATIVE DIAGNOSIS: Choledocholithiasis POSTOPERATIVE DIAGNOSIS: Same PROCEDURE: Laparoscopic cholecystectomy SURGEON: Sebastian EBL: Minimal see anesthesia record ANESTHESIA: Gen. COMPLICATIONS: None OPERATIVE PROCEDURE: The patient was brought and placed on the operating room table in the supine position. The patient was placed under general anesthesia at that time. The abdomen was prepped and draped in the usual sterile fashion. A small vertical infraumbilical incision was made. The fascia was grasped with the Mariam forceps. The fascia was retracted anteriorly. The Veress needle was advanced into the peritoneal cavity. The saline drop test was normal. Insufflation took place up to 15 mmHg. A 5 mm optical trocar was advanced and the peritoneal cavity. 2 additional 5 mm trochars were placed in the right upper quadrant under direct visualization. A 12 mm trocar was advanced into the epigastric incision site. The gallbladder was retracted superiorly and laterally. The peritoneum overlying the infundibulum was bluntly dissected. The patient's cystic duct was visualized. The junction between the cystic duct common and hepatic duct was identified. The cystic duct was then divided after placement of 3 12 mm clips on the patient's side and one on the specimen side. The cystic artery was identified and clipped as well. A small vessel was seen along the gallbladder fossa and clipped as well. The gallbladder was then removed from the liver bed using electrocautery. The gallbladder was then removed from the epigastric trocar site with an Endo Catch bag. The gallbladder fossa was irrigated with saline. There was no evidence of any bleeding or biliary drainage seen. The trochars were then removed. The fascia at the 12 millimeter site was closed using a Dale- Apo 0 Vicryl stitch. The skin at all 4 sites was closed using a 4-0 Monocryl stitch. At the end of this procedure the sponge and needle counts were correct. DISPOSITION: Stable to the recovery room
[2017-12-30] MEDS ORDERED: HYDROmorphone 1 MG/ML 1 ML SYRINGE IVP ONE (14:57)
[2017-12-30] MEDS ORDERED: HYDROmorphone 0.5 MG/0.5 ML SYRINGE IVP ONE (15:02)
[2017-12-30] MEDS ORDERED: ONDANSETRON 4 MG/2 ML VIAL IVP ONE (15:57)
[2017-12-30 17:02] LABS: Glucose,Whole Blood 176 mg/dL (75-99)
[2017-12-30] MEDS: HYDROcodone/APAP 5-325MG 1 EACH TAB PO PRN (20:54)
[2017-12-30 21:01] LABS: Glucose,Whole Blood 215 mg/dL (75-99)
[2017-12-31] MEDS: HEPARIN SODIUM,PORCINE 5,000 UNIT/ML 1 ML VIAL SQ SCH ×2 (00:46→08:27)
[2017-12-31] MEDS: metroNIDAZOLE-NS PMX 500 MG in SALINE 1 100ML.BAG IVPB SCH ×2 (00:46→08:20)
[2017-12-31] MEDS: HYDROcodone/APAP 5-325MG 1 EACH TAB PO PRN ×3 (03:02→13:57)
[2017-12-31] MEDS: SODIUM CHLORIDE 0.9% 1,000 ML IV SCH ×2 (03:03→12:44)
[2017-12-31 07:10] LABS: Glucose,Whole Blood 151 mg/dL (75-99)
[2017-12-31] MEDS: INSULIN ASPART 100 UNIT/ML 1 ML 10 ML VIAL SQ SCH ×2 (08:21→12:47)
[2017-12-31] MEDS: PANTOPRAZOLE 40 MG/10 ML VIAL IV SCH (09:12)
[2017-12-31] MEDS: CIPROFLOXACIN/DEXTROSE PMX 400 MG in DEXTROSE/WATER 1 200ML.BAG IVPB SCH (09:49)
[2017-12-31 12:07] LABS: Glucose,Whole Blood 164 mg/dL (75-99)
--- NOTE | 2017-12-31 12:59 | P.DS ---
Providers Date of admission: 12/28/17 19:36 Expected date of discharge: 12/31/17 Attending physician: Tulio Cortes Primary care physician: Jennifer Rust MD - Discharge Diagnosis(es) (1) Choledocholithiasis Patient minute the hospital with choledocholithiasis. The patient appears to pass that gallstone. Her liver enzymes which were elevated initially have decreased progressively. She underwent cholecystectomy yesterday. She is doing well at this time. Incisions are healing appropriately. She is tolerating a diet. We'll discharge home with outpatient follow-up planned. Prescription for [place] provided. Current Visit: Yes Status: Acute Patient Condition at Discharge: Serious Plan - Discharge Summary New Discharge Prescriptions: No Action Ovm-Hswo-Gepsh Acid [-U Capsule (formulary)] 1 cap PO DAILY Ibuprofen [Motrin] 600 mg PO Q6HR PRN #30 tab PRN Reason: Mild Pain Or Fever >= 100.5 metFORMIN HCL 1,000 mg PO BID Norethindrone [Hazel] 0.35 mg PO DAILY Discharge Medication List Fqy-Ohqd-Ymobr Acid [-U Capsule (formulary)] 1 cap PO DAILY 06/18 [History] Ibuprofen [Motrin] 600 mg PO Q6HR PRN #30 tab 04/23/17 [Rx] metFORMIN HCL 1,000 mg PO BID 12/28/17 [History] Norethindrone [Hazel] 0.35 mg PO DAILY 12/29/17 [History] Follow up Appointment(s)/Referral(s): Tulio Cortes MD [Medical Doctor] - 1 Week Jennifer Rust MD [Primary Care Provider] - 1-2 days
[2017-12-31 14:10] VITALS: BP 116/78; PULSE 79; RESP 20; TEMP 98
== END 2017-12-31 16:05 | disposition home or self-care (01) | DRG 419 ==
LOC: EC 16:35 → 6PED 19:36
PROVIDERS: ADMIT Surgery; ATTEND Surgery
PROC: 0FT44ZZ Resection of Gallbladder, Percutaneous Endoscopic Approach (ICD-10-PCS; principal; 2017-12-30 13:35)
DX: K80.62 Calculus of gallbladder and bile duct with acute cholecystitis without obstruction (principal); E11.9 Type 2 diabetes mellitus without complications; Z79.4 Long term (current) use of insulin; Z88.0 Allergy status to penicillin; Z91.048 Other nonmedicinal substance allergy status; Z86.32 Personal history of gestational diabetes; Z80.49 Family history of malignant neoplasm of other genital organs; Z80.3 Family history of malignant neoplasm of breast; Z83.3 Family history of diabetes mellitus
CPT/HCPCS: 36415; 76700; 80053; 81001; 81025; 82150; 83690; 85025; 88304; 99285

== ENCOUNTER 2018-01-03 22:39 | Observation (INO) | payer OTHER ==
[2018-01-03] MEDS ORDERED: ONDANSETRON 4 MG/2 ML VIAL IVP STA (23:55)
[2018-01-03] MEDS ORDERED: SODIUM CHLORIDE 0.9% 1,000 ML IV STA (23:55)
--- NOTE | 2018-01-03 23:58 | ED ---
Abdominal Pain HPI - General Source: patient, RN notes reviewed Mode of arrival: ambulatory Limitations: no limitations <Albert pSarks - Last Filed: 01/04/18 03:07> <Erich Rose - Last Filed: 01/06/18 11:41> - General Chief Complaint: Abdominal Pain Stated Complaint: Post op pain Time Seen by Provider: 01/03/18 23:47 - History of Present Illness Initial Comments: This is a 32-year-old female presents emergency Department chief complaint of epigastric pain. Patient states that she had a cholecystectomy [address] calix. Patient states the pain had been improving up until tonight when she developed epigastric pain unalleviated with her Tylenol that she has been taking. Patient had some nausea and one episode of vomiting. Patient reports no fever no chills. Patient denies any chest pain or shortness of breath. Patient reports no fever no chills no night sweats. Has no dysuria no hematuria. (Albert Sparks) - Related Data Home Medications Medication Instructions Recorded Confirmed Qva-Gqdp-Jrfjk Acid 1 cap PO DAILY 10/31/16 01/04/18 [-U Capsule (formulary)] metFORMIN HCL 1,000 mg PO BID 12/28/17 01/04/18 Norethindrone [Hazel] 0.35 mg PO DAILY 12/29/17 01/04/18 Allergies Allergy/AdvReac Type Severity Reaction Status Date / Time grass pollen Allergy Unknown Verified 01/04/18 13:14 Penicillins Allergy Anaphylaxis Verified 01/04/18 13:14 pollen extracts Allergy Unknown Verified 01/04/18 13:14 Review of Systems ROS Other: All systems not noted in ROS Statement are negative. <Albert Sparks - Last Filed: 01/04/18 03:07> ROS Other: All systems not noted in ROS Statement are negative. <Erich Rose - Last Filed: 01/06/18 11:41> ROS Statement: Those systems with pertinent positive or pertinent negative responses have been documented in the HPI. Past Medical History Past Medical History: No Reported History, Diabetes Mellitus Additional Past Medical History / Comment(s): Type 2 diabetes History of Any Multi-Drug Resistant Organisms: None Reported Past Surgical History: Cholecystectomy Additional Past Surgical History / Comment(s): Eye surgery for strabismus. LEEP excision of the cervix (after the delivery of her last baby.) Patient's had 2 previous term deliveries. Past Anesthesia/Blood Transfusion Reactions: No Reported Reaction Past Psychological History: No Psychological Hx Reported Smoking Status: Never smoker Past Alcohol Use History: None Reported Past Drug Use History: None Reported - Past Family History Father Family Medical History: Cancer Additional Family Medical History / Comment(s): COLON Mother Family Medical History: Cancer, Diabetes Mellitus Additional Family Medical History / Comment(s): BREAST AND UTERINE CA <Albert Sparks - Last Filed: 01/04/18 03:07> General Exam Limitations: no limitations General appearance: alert, in no apparent distress Head exam: Present: atraumatic, normocephalic, normal inspection Neck exam: Present: normal inspection, full ROM. Absent: tenderness, meningismus, lymphadenopathy Respiratory exam: Present: normal lung sounds bilaterally. Absent: respiratory distress, wheezes, rales, rhonchi, stridor Cardiovascular Exam: Present: regular rate, normal rhythm, normal heart sounds. Absent: systolic murmur, diastolic murmur, rubs, gallop, clicks GI/Abdominal exam: Present: soft, tenderness (Mild to moderate right upper quadrant, and epigastric tenderness, incisions are covered, there is no erythema no purulent drainage), normal bowel sounds. Absent: distended, guarding, rebound, rigid Back exam: Absent: CVA tenderness (R), CVA tenderness (L) Skin exam: Present: warm, dry, intact, normal color. Absent: rash <Albert Sparks - Last Filed: 01/04/18 03:07> Vital Signs 01/03/18 22:41 Temperature 98.1 F Pulse Rate 93 Respiratory 20 Rate Blood Pressure 130/77 O2 Sat by Pulse 100 Oximetry Medical Decision Making - Lab Data Result diagrams: 01/04/18 00:19 01/04/18 00:19 <Albert Sparks - Last Filed: 01/04/18 03:07> - Lab Data Result diagrams: 01/06/18 06:19 01/06/18 06:19 <Erich Rose - Last Filed: 01/06/18 11:41> - Medical Decision Making I saw this patient in conjunction with the physician assistant store manager operations. I performed independent history and physical exam. Agree with case management. (Erich Rose) - Lab Data Lab Results 01/04/18 01/04/18 01/04/18 Range/Units 00:19 00:19 00:19 WBC 10.5 (3.8-10.6) k/uL RBC 4.75 (3.80-5.40) m/uL Hgb 13.9 (11.4-16.0) gm/dL Hct 42.6 (34.0-46.0) % MCV 89.6 (80.0-100.0) fL MCH 29.3 (25.0-35.0) pg MCHC 32.7 (31.0-37.0) g/dL RDW 13.3 (11.5-15.5) % Plt Count 282 (150-450) k/uL Neutrophils % 72 % Lymphocytes % 17 % Monocytes % 6 % Eosinophils % 4 % Basophils % 0 % Neutrophils # 7.6 (1.3-7.7) k/uL Lymphocytes # 1.8 (1.0-4.8) k/uL Monocytes # 0.7 (0-1.0) k/uL Eosinophils # 0.4 (0-0.7) k/uL Basophils # 0.0 (0-0.2) k/uL Sodium 136 L (137-145) mmol/L Potassium 4.7 (3.5-5.1) mmol/L Chloride 104 (98-107) mmol/L Carbon Dioxide 22 (22-30) mmol/L Anion Gap 10 mmol/L BUN 11 (7-17) mg/dL Creatinine 0.50 L (0.52-1.04) mg/dL Est GFR (CKD-EPI)AfAm >90 (>60 ml/min/1.73 sqM) Est GFR (CKD-EPI)NonAf >90 (>60 ml/min/1.73 sqM) Glucose 204 H (74-99) mg/dL Calcium 9.7 (8.4-10.2) mg/dL Total Bilirubin 1.6 H (0.2-1.3) mg/dL AST 312 H (14-36) U/L ALT 164 H (9-52) U/L Alkaline Phosphatase 186 H (38-126) U/L Total Protein 7.2 (6.3-8.2) g/dL Albumin 4.4 (3.5-5.0) g/dL Amylase 53 (30-110) U/L Lipase 284 (23-300) U/L Urine Color Dark Yellow Urine Appearance Cloudy H (Clear) Urine pH 6.0 (5.0-8.0) Ur Specific [place] 1.026 (1.001-1.035) Urine Protein 1+ H (Negative) Urine Glucose (UA) 4+ H (Negative) Urine Ketones Negative (Negative) Urine Blood Large H (Negative) Urine Nitrite Negative (Negative) Urine Bilirubin 1+ H (Negative) Urine Urobilinogen 8.0 (<2.0) mg/dL Ur Leukocyte Esterase Large H (Negative) Urine RBC 97 H (0-5) /hpf Urine WBC 63 H (0-5) /hpf Ur Squamous Epith Cells 16 H (0-4) /hpf Urine Bacteria Rare H (None) /hpf Urine Mucus Many H (None) /hpf Disposition <Albert Sparks - Last Filed: 01/04/18 03:07> <Erich Rose - Last Filed: 01/06/18 11:41> Clinical Impression: Status post cholecystectomy, Abdominal pain, Nausea & vomiting, Elevated LFTs, Hyperbilirubinemia Disposition: ADMITTED IP TO THIS HOSP Condition: Stable
[2018-01-04 00:31] LABS: Basophils % (A) 0 %; Eosinophils # (A) 0.4 k/uL (0-0.7); Eosinophils % (A) 4 %; HCT 42.6 % (34.0-46.0); HGB 13.9 gm/dL (11.4-16.0); Lymphocytes # (A) 1.8 k/uL (1.0-4.8); Lymphocytes % (A) 17 %; MCH 29.3 pg (25.0-35.0); MCHC 32.7 g/dL (31.0-37.0); MCV 89.6 fL (80.0-100.0); Mean Platelet Volume 7.7; Monocytes # (A) 0.7 k/uL (0-1.0); Monocytes % (A) 6 %; Neutrophils # (A) 7.6 k/uL (1.3-7.7); Neutrophils % (A) 72 %; Platelet Count 282 k/uL (150-450); RBC 4.75 m/uL (3.80-5.40); RDW 13.3 % (11.5-15.5); WBC 10.5 k/uL (3.8-10.6)
[2018-01-04 00:34] LABS: Appearance,Urine Cloudy (Clear); Bacteria,Urine Rare /hpf; Bilirubin,Urine 1+ (Negative); Blood,Urine Large (Negative); Color,Urine Dark Yellow; Glucose,Urine (UA) 4+ (Negative); Ketones,Urine Negative (Negative); Leukocyte Esterase,Urine Large (Negative); Mucus,Urine Many /hpf; Nitrite,Urine Negative (Negative); Protein,Urine 1+ (Negative); RBC,Urine 97 /hpf (0-5); Specific Gravity,Urine 1.026 (1.001-1.035); Squamous Epithelial Cell,Urine 16 /hpf (0-4); WBC,Urine 63 /hpf (0-5)
[2018-01-04 00:39] LABS: Albumin 4.4 g/dL (3.5-5.0); Amylase 53 U/L (30-110); Anion Gap 10 mmol/L; Calcium 9.7 mg/dL (8.4-10.2); Carbon Dioxide 22 mmol/L (22-30); Chloride 104 mmol/L (98-107); Glucose 204 mg/dL (74-99); Lipase 284 U/L (23-300); Potassium 4.7 mmol/L (3.5-5.1); Sodium 136 mmol/L (137-145); Total Bilirubin 1.6 mg/dL (0.2-1.3); Total Protein 7.2 g/dL (6.3-8.2)
[2018-01-04 00:40] LABS: ALT 164 U/L (9-52); AST 312 U/L (14-36); Alkaline Phosphatase 186 U/L (38-126); Blood Urea Nitrogen 11 mg/dL (7-17)
[2018-01-04] MEDS ORDERED: ONDANSETRON ODT 4 MG TAB PO STA (01:10)
--- NOTE | 2018-01-04 01:32 | US ---
EXAMINATION TYPE: US abdomen limited DATE OF EXAM: 01/04/2018 COMPARISON: NONE CLINICAL HISTORY: Pain. cholecystectomy 4 days ago, nauseous, abd pain EXAM MEASUREMENTS: Liver Length: 17.7 cm Gallbladder Wall: Surgically absent CBD: 0.6 cm Right Kidney: 10.2 x 5.2 x 4.0 cm Patient has bandages over her sutures from surgery which limits scanning views Pancreas: not seen due to bowel gas Liver: wnl Gallbladder: Surgically absent Evidence for sonographic Colon's sign: no CBD: wnl, no obvious sign of obstruction Right Kidney: wnl IMPRESSION: No focal liver defect. No dilated ducts. No free fluid.
--- NOTE | 2018-01-04 02:05 | XR ---
EXAMINATION TYPE: XR KUB DATE OF EXAM: 01/04/2018 COMPARISON: NONE HISTORY: Abdominal pain TECHNIQUE: 2 views FINDINGS: Bowel gas pattern is normal. There is no sign of intestinal obstruction or pneumoperitoneum . Fecal pattern is normal. There is mild thoracolumbar dextroscoliosis. There are no calcifications o tommy the kidneys. There are clips from cholecystectomy. Lung bases are clear. IMPRESSION: Nonacute abdomen.
[2018-01-04] MEDS ORDERED: traMADol 50 MG TAB PO PRN (03:07)
[2018-01-04] MEDS ORDERED: ACETAMINOPHEN TAB 325 MG TAB PO PRN (03:07)
[2018-01-04] MEDS ORDERED: ONDANSETRON 4 MG/2 ML VIAL IVP PRN (03:07)
[2018-01-04 05:44] VITALS: BMI 30.9
[2018-01-04] MEDS ORDERED: HYDROmorphone 1 MG/ML 1 ML SYRINGE IVP PRN (08:05)
[2018-01-04] MEDS ORDERED: ONDANSETRON 4 MG/2 ML VIAL IVP ONE (08:07)
[2018-01-04] MEDS ORDERED: METOCLOPRAMIDE 5 MG/ML 2 ML VIAL IVP PRN (08:08)
[2018-01-04] MEDS ORDERED: SODIUM CHLORIDE 0.9% 500 ML IV ONE (08:09)
[2018-01-04] MEDS: KETOROLAC 30 MG/ML 1 ML VIAL IVP SCH ×3 (09:09→21:19)
--- NOTE | 2018-01-04 09:46 | P.GSHP ---
History of Present Illness H&P Date: 01/04/18 Chief Complaint: Recurrent choledocholithiasis Patient was hospitalized last week with choledocholithiasis. Her enzymes had improved and her symptoms had improved. It was felt that she had passed her stone. She underwent cholecystectomy without incident. She had been feeling well and only taken 1 of her [place] was up until last night at 11 PM when she began experiencing symptoms similar to her initial presentation with midepigastric pain radiating to the back. Her liver enzymes are elevated again. She was admitted for probable ERCP. GI and medicine of both been consulted. - Review of Systems Comment: The patient denies any acute changes in vision or hearing, no dysphagia or odynophagia, no chest pain or shortness of breath, no dysuria or hematuria, no headache, no runny nose, no rectal bleeding or melena, no unexplained weight loss Past Medical History Past Medical History: No Reported History, Diabetes Mellitus Additional Past Medical History / Comment(s): Type 2 diabetes History of Any Multi-Drug Resistant Organisms: None Reported Past Surgical History: Cholecystectomy Additional Past Surgical History / Comment(s): Eye surgery for strabismus. LEEP excision of the cervix (after the delivery of her last baby.) Patient's had 2 previous term deliveries. Past Anesthesia/Blood Transfusion Reactions: No Reported Reaction Past Psychological History: No Psychological Hx Reported Smoking Status: Never smoker Past Alcohol Use History: None Reported Additional Past Alcohol Use History / Comment(s): QUIT SMOKING AGE 24 (1999), STARTED 1995, SMOKED LESS THAN ONE PPD Past Drug Use History: None Reported - Past Family History Father Family Medical History: Cancer Additional Family Medical History / Comment(s): COLON Mother Family Medical History: Cancer, Diabetes Mellitus Additional Family Medical History / Comment(s): BREAST AND UTERINE CA Medications and Allergies Home Medications Medication Instructions Recorded Confirmed Type Mct-Dsik-Vjifm Acid 1 cap PO DAILY 10/31/16 01/04/18 History [-U Capsule (formulary)] metFORMIN HCL 1,000 mg PO BID 12/28/17 01/04/18 History Norethindrone [Hazel] 0.35 mg PO DAILY 12/29/17 01/04/18 History Allergies Allergy/AdvReac Type Severity Reaction Status Date / Time grass pollen Allergy Unknown Verified 01/03/18 22:44 Penicillins Allergy Anaphylaxis Verified 01/03/18 22:44 pollen extracts Allergy Unknown Verified 01/03/18 22:44 Surgical - Exam Vital Signs Temp Pulse Resp BP Pulse Ox 98.1 F 93 20 130/77 100 01/03/18 22:41 01/03/18 22:41 01/03/18 22:41 01/03/18 22:41 01/03/18 22:41 Physical exam: General: Well-developed, well-nourished HEENT: Normocephalic, sclerae nonicteric Abdomen: Mild incisional tenderness, incisions clean and dry, nondistended Extremities: No edema Neuro: Alert and oriented Results - Labs 01/04/18 00:19 01/04/18 00:19 Abnormal Lab Results - Last 24 Hours (Table) 01/04/18 01/04/18 Range/Units 00:19 00:19 Sodium 136 L (137-145) mmol/L Creatinine 0.50 L (0.52-1.04) mg/dL Glucose 204 H (74-99) mg/dL Total Bilirubin 1.6 H (0.2-1.3) mg/dL AST 312 H (14-36) U/L ALT 164 H (9-52) U/L Alkaline Phosphatase 186 H (38-126) U/L Urine Appearance Cloudy H (Clear) Urine Protein 1+ H (Negative) Urine Glucose (UA) 4+ H (Negative) Urine Blood Large H (Negative) Urine Bilirubin 1+ H (Negative) Ur Leukocyte Esterase Large H (Negative) Urine RBC 97 H (0-5) /hpf Urine WBC 63 H (0-5) /hpf Ur Squamous Epith Cells 16 H (0-4) /hpf Urine Bacteria Rare H (None) /hpf Urine Mucus Many H (None) /hpf Diabetes panel 01/04/18 Range/Units 00:19 Sodium 136 L (137-145) mmol/L Potassium 4.7 (3.5-5.1) mmol/L Chloride 104 (98-107) mmol/L Carbon Dioxide 22 (22-30) mmol/L BUN 11 (7-17) mg/dL Creatinine 0.50 L (0.52-1.04) mg/dL Glucose 204 H (74-99) mg/dL Calcium 9.7 (8.4-10.2) mg/dL AST 312 H (14-36) U/L ALT 164 H (9-52) U/L Alkaline Phosphatase 186 H (38-126) U/L Total Protein 7.2 (6.3-8.2) g/dL Albumin 4.4 (3.5-5.0) g/dL Calcium panel 01/04/18 Range/Units 00:19 Calcium 9.7 (8.4-10.2) mg/dL Albumin 4.4 (3.5-5.0) g/dL Pituitary panel 01/04/18 Range/Units 00:19 Sodium 136 L (137-145) mmol/L Potassium 4.7 (3.5-5.1) mmol/L Chloride 104 (98-107) mmol/L Carbon Dioxide 22 (22-30) mmol/L BUN 11 (7-17) mg/dL Creatinine 0.50 L (0.52-1.04) mg/dL Glucose 204 H (74-99) mg/dL Calcium 9.7 (8.4-10.2) mg/dL Adrenal panel 01/04/18 Range/Units 00:19 Sodium 136 L (137-145) mmol/L Potassium 4.7 (3.5-5.1) mmol/L Chloride 104 (98-107) mmol/L Carbon Dioxide 22 (22-30) mmol/L BUN 11 (7-17) mg/dL Creatinine 0.50 L (0.52-1.04) mg/dL Glucose 204 H (74-99) mg/dL Calcium 9.7 (8.4-10.2) mg/dL Total Bilirubin 1.6 H (0.2-1.3) mg/dL AST 312 H (14-36) U/L ALT 164 H (9-52) U/L Alkaline Phosphatase 186 H (38-126) U/L Total Protein 7.2 (6.3-8.2) g/dL Albumin 4.4 (3.5-5.0) g/dL Assessment and Plan Assessment: Keep nothing by mouth for now. Recheck labs today and tomorrow morning. Await GI evaluation for ERCP.
[2018-01-04 10:22] LABS: ALT 192 U/L (9-52); AST 205 U/L (14-36); Albumin 3.7 g/dL (3.5-5.0); Alkaline Phosphatase 154 U/L (38-126); Anion Gap 7 mmol/L; Blood Urea Nitrogen 9 mg/dL (7-17); Calcium 8.9 mg/dL (8.4-10.2); Carbon Dioxide 24 mmol/L (22-30); Chloride 107 mmol/L (98-107); Glucose 154 mg/dL (74-99); Potassium 4.3 mmol/L (3.5-5.1); Sodium 138 mmol/L (137-145); Total Bilirubin 0.7 mg/dL (0.2-1.3); Total Protein 6.1 g/dL (6.3-8.2)
--- NOTE | 2018-01-04 10:23 | P.CONS ---
History of Present Illness - Reason for Consult Consult date: 01/04/18 Abdominal pain, elevated transaminase - Chief Complaint Abdominal pain - History of Present Illness 32-year-old female with past medical history of type 2 diabetes presents to the emergency department for abdominal pain since 11 PM last night. Patient was initially seen on 12/28/2017 for epigastric pain that radiated to the back associated with nausea, vomiting and dark urine. She was evaluated by general surgery and gastroenterology. She was found to have an elevated transaminase. Abdominal ultrasound showed multiple gallstones with gallbladder wall thickening and enlargement of the common bile duct consistent with acute cholecystitis. She underwent laparoscopic cholecystectomy on 12/30/2017. Her pain subsequently improved and she was discharged on 12/31/2017. Patient reports initially feeling better after discharge but started experiencing similar epigastric pain last night around 11 PM. Patient reports eating a ham sandwich around 4 PM. Patient has been avoiding spicy and greasy foods. Patient reports that pain is epigastric in location, radiating to the back, 9 out of 10 in severe and intermittent. She describes the pain as stabbing in nature. Pain is associated with one episode of nausea and vomiting, nonbloody and nonbilious. She currently denies any nausea, vomiting, fever, chills, cough , chest pain, shortness of breath, any changes in urination or bowel habits. She denies any changes in the color of her stools. She has had a good appetite since discharge. In the ED, she was found to be afebrile with no leukocytosis. She was found to have a sodium of 136, glucose of 204, total bilirubin of 1.6 , AST of 312, ALT of 164, alkaline phosphatase of 186. Her amylase and lipase was within normal limits. Her urinalysis showed 1+ protein, 4+ glucose, large blood, 1+ bilirubin, large leukocyte esterase with many squamous epithelial cells. Patient is admitted for further workup of her transaminase and epigastric pain. Review of Systems All systems: negative Past Medical History Past Medical History: No Reported History, Diabetes Mellitus Additional Past Medical History / Comment(s): Type 2 diabetes History of Any Multi-Drug Resistant Organisms: None Reported Past Surgical History: Cholecystectomy Additional Past Surgical History / Comment(s): Eye surgery for strabismus. LEEP excision of the cervix (after the delivery of her last baby.) Patient's had 2 previous term deliveries. Past Anesthesia/Blood Transfusion Reactions: No Reported Reaction Past Psychological History: No Psychological Hx Reported Smoking Status: Never smoker Past Alcohol Use History: None Reported Additional Past Alcohol Use History / Comment(s): QUIT SMOKING AGE 24 (1999), STARTED 1995, SMOKED LESS THAN ONE PPD Past Drug Use History: None Reported - Past Family History Father Family Medical History: Cancer Additional Family Medical History / Comment(s): COLON Mother Family Medical History: Cancer, Diabetes Mellitus Additional Family Medical History / Comment(s): BREAST AND UTERINE CA Medications and Allergies Home Medications Medication Instructions Recorded Confirmed Type Lgf-Wfho-Imgcr Acid 1 cap PO DAILY 10/31/16 01/04/18 History [-U Capsule (formulary)] metFORMIN HCL 1,000 mg PO BID 12/28/17 01/04/18 History Norethindrone [Hazel] 0.35 mg PO DAILY 12/29/17 01/04/18 History Allergies Allergy/AdvReac Type Severity Reaction Status Date / Time grass pollen Allergy Unknown Verified 01/04/18 13:14 Penicillins Allergy Anaphylaxis Verified 01/04/18 13:14 pollen extracts Allergy Unknown Verified 01/04/18 13:14 Physical Exam Vitals: Vital Signs Temp Pulse Pulse Resp BP BP Pulse Ox 01/04/18 05:28 97.5 F L 75 18 109/67 98 01/04/18 05:16 63 16 122/77 01/03/18 22:41 98.1 F 93 20 130/77 100 Intake and Output 01/03/18 01/04/18 01/04/18 22:59 06:59 14:59 Intake Total 0 Balance 0 Intake: Oral 0 Other: Voiding Method Toilet Toilet Weight 81.647 kg 81.647 kg General: non toxic, no distress, appears at stated age Derm: warm, dry Head: atraumatic, normocephalic, symmetric Eyes: EOMI, no lid lag, anicteric sclera Mouth: no lip lesion, mucus membranes moist Cardiovascular: S1S2 reg, no murmur, positive posterior tibial pulse bilateral, Lungs: CTA bilateral, no rhonchi, no rales , no accessory muscle use Abdominal: soft, tenderness in the epigastric area without rebound, no guarding , no appreciable organomegaly, positive Colon sign Ext: no gross muscle atrophy, no edema, no contractures Neuro: CN II-XI grossly intact, no focal neuro deficits Psych: Alert, oriented, appropriate affect Results CBC & Chem 7: 01/04/18 00:19 01/04/18 09:54 Labs: Abnormal Lab Results - Last 24 Hours (Table) 01/04/18 01/04/18 Range/Units 00:19 00:19 Sodium 136 L (137-145) mmol/L Creatinine 0.50 L (0.52-1.04) mg/dL Glucose 204 H (74-99) mg/dL Total Bilirubin 1.6 H (0.2-1.3) mg/dL AST 312 H (14-36) U/L ALT 164 H (9-52) U/L Alkaline Phosphatase 186 H (38-126) U/L Urine Appearance Cloudy H (Clear) Urine Protein 1+ H (Negative) Urine Glucose (UA) 4+ H (Negative) Urine Blood Large H (Negative) Urine Bilirubin 1+ H (Negative) Ur Leukocyte Esterase Large H (Negative) Urine RBC 97 H (0-5) /hpf Urine WBC 63 H (0-5) /hpf Ur Squamous Epith Cells 16 H (0-4) /hpf Urine Bacteria Rare H (None) /hpf Urine Mucus Many H (None) /hpf US - abdomen: report reviewed Assessment and Plan Assessment: Assessment 32-year-old female with past medical history of type 2 diabetes presents to the ED for complaints of epigastric pain and nausea/vomiting. She has a history of acute cholecystitis, status post cholecystectomy on 12/30/2017. Patient is found to have an elevated transaminase. Patient is admitted for further workup of epigastric pain, gastroenterology and general surgery on board. Plan 1. Epigastric pain - Postcholecystectomy syndrome likely 2/2 biliary leak or retained gallstone in the CBD. - Abd US: No dilated ducts. - KUB: Non acute abdomen. - (12/30) T. Bili 0.4 AST 123 ALT 244 ALK-P 125 - (01/04) T. Bili 1.6 AST 312 ALT 164 ALK-P 186 - Pain control: Toradol 30 mg IV Q6H PRN, Dilaudid 1 mg IV Q3 PRN - Antiemetic control: Zofran 4 mg IV Q8H PRN, Reglan 10 mg IV Q6H PRN - Likely biliary leak since no CBD dilation on US. Pain and antiemetic control. Continue hydration with NS 100 ml/h. NPO pending intervention Possible MRCP on Friday. FU CMP, Lipase in the AM. FU GI and Gen Sx 2. DM: A1c 8.4 11/2017. On Metformin at home, hold while in house. Start ISS. Diabetic diet when able to PO. Accuchecks QID. Hypoglycemic precautions. 3. Abnormal UA: UA shows 1+ protein, 4+ glucose, large blood, 1+ bilirubin, + LE with Sq Epi cells. Dirty. FU repeat UA 4. DVT/GI Prophylaxis: Low risk for DVT, encourage early mobilization. Pepcid 20 mg IV BID. (1) Diabetes type 2, controlled Current Visit: Yes Status: Acute Code(s): E11.9 - TYPE 2 DIABETES MELLITUS WITHOUT COMPLICATIONS SNOMED Code(s): 05697986 (2) Abnormal urinalysis Current Visit: Yes Status: Acute Code(s): R82.90 - UNSPECIFIED ABNORMAL FINDINGS IN URINE SNOMED Code(s): 141508795 (3) Abdominal pain Current Visit: Yes Status: Acute Code(s): R10.9 - UNSPECIFIED ABDOMINAL PAIN SNOMED Code(s): 70892629
[2018-01-04 11:51] LABS: Glucose,Whole Blood 140 mg/dL (75-99)
[2018-01-04] MEDS: INSULIN ASPART 100 UNIT/ML 1 ML 10 ML VIAL SQ SCH ×2 (11:53→17:21)
[2018-01-04] MEDS: SODIUM CHLORIDE 0.9% 1,000 ML IV SCH ×2 (14:37→23:49)
[2018-01-04 15:10] LABS: Amorphous Sediment,Urine Rare /hpf; Appearance,Urine Clear (Clear); Bilirubin,Urine Negative (Negative); Blood,Urine Negative (Negative); Color,Urine Yellow; Glucose,Urine (UA) Trace (Negative); Ketones,Urine Negative (Negative); Leukocyte Esterase,Urine Trace (Negative); Mucus,Urine Many /hpf; Nitrite,Urine Negative (Negative); PH, Urine 6.5 (5.0-8.0); Protein,Urine Negative (Negative); Squamous Epithelial Cell,Urine 1 /hpf (0-4); Urobilinogen,Urine <2.0 mg/dL (<2.0); WBC,Urine 2 /hpf (0-5)
[2018-01-04] MEDS: HEPARIN SODIUM,PORCINE 5,000 UNIT/ML 1 ML VIAL SQ SCH ×2 (17:17→23:49)
[2018-01-04 17:24] LABS: Glucose,Whole Blood 130 mg/dL (75-99)
[2018-01-04] MEDS: FAMOTIDINE 20 MG/2 ML VIAL IV SCH (21:19)
[2018-01-04 23:59] LABS: Glucose,Whole Blood 108 mg/dL (75-99)
--- NOTE | 2018-01-05 00:46 | CONS ---
CONSULTATION DATE OF SERVICE: 01/04/2018. REQUESTING PHYSICIAN: Dr. Cortes. HISTORY: The patient is a 32-year-old pleasant white female admitted to the hospital with acute onset of severe epigastric pain and elevated LFTs. The patient had a similar hospitalization a week ago, at which time she was admitted with acute biliary type pain and symptomatic gallstones. She was also noted to have elevated LFTs, however, her LFTs improved. She underwent laparoscopic cholecystectomy by Dr. Cortes on Friday of last week and she was discharged home on Friday. She did well until yesterday when she started having severe epigastric discomfort associated with nausea and vomiting. She came into the emergency room and was found to have elevated LFTs and hence we admitted her for possible ERCP. She is feeling much better this morning. Still has epigastric discomfort. PAST MEDICAL HISTORY: Recent cholecystectomy. MEDICATIONS: At home, metformin, control pills, and vitamins. SOCIAL HISTORY: No smoking or alcohol use. FAMILY HISTORY: Unremarkable. ALLERGIES: PENICILLIN. REVIEW OF SYSTEMS: CARDIOPULMONARY: No chest pain or shortness of breath. GENITOURINARY: No dysuria or hematuria. MUSCULOSKELETAL: Unremarkable SKIN: Unremarkable. ENDOCRINE: Unremarkable. CONSTITUTIONAL: No recent weight loss. No fever, chills, night sweats. PHYSICAL EXAMINATION: GENERAL: She appears comfortable, no apparent distress. Vital signs is stable. Blood pressure is 122/86, pulse rate 85 per minute and afebrile. HEENT: Examination unremarkable. Conjunctivae pink. Sclerae anicteric. Oral cavity no lesions. NECK: No JVD or lymph node enlargement. CHEST: Clear to auscultation. HEART: Regular rate and rhythm. ABDOMEN: Soft, mild tenderness in the epigastric area. Bowel sounds are positive. No organomegaly. EXTREMITIES: No pedal edema. SKIN: No rashes. NEUROLOGIC: Alert and oriented x3. No focal deficits. LAB DATA: Previous T-bili 1.6, AST and ALT are 312 and 164 respectively. Today, T-bilirubin is 0.7, AST and ALT are 205 is 182 respectively. Alk phos 152. IMPRESSION: This is a lady who presented to the hospital with acute onset of nausea and vomiting of 2 days duration. She was just hospitalized a week ago for similar symptoms, was noted to have gallstones and elevated LFTs. She underwent laparoscopic cholecystectomy. Her LFTs improved. ERCP was not performed. She was discharged home and was doing well for 3 days and now redeveloped symptoms and elevated LFTs. Most likely we are dealing with a common bile duct stone. RECOMMENDATIONS: 1. Clear liquid diet. 2. The patient will be n.p.o. after midnight. 3. Proceed with ERCP tomorrow. I discussed with the patient the risks and complications including bleeding, perforation, acute pancreatitis, and she is agreeable to it. Thank you for this consult. MMODL / IJN: [id number] /
[2018-01-05 04:40] LABS: Glucose,Whole Blood 113 mg/dL (75-99)
[2018-01-05] MEDS: KETOROLAC 30 MG/ML 1 ML VIAL IVP SCH ×4 (04:42→18:15)
[2018-01-05 06:22] LABS: Basophils % (A) 1 %; Eosinophils # (A) 0.3 k/uL (0-0.7); Eosinophils % (A) 6 %; HCT 36.1 % (34.0-46.0); HGB 12.3 gm/dL (11.4-16.0); Lymphocytes # (A) 1.6 k/uL (1.0-4.8); Lymphocytes % (A) 29 %; MCH 30.2 pg (25.0-35.0); Monocytes # (A) 0.3 k/uL (0-1.0); Monocytes % (A) 6 %; Neutrophils # (A) 3.1 k/uL (1.3-7.7); Neutrophils % (A) 57 %; Platelet Count 211 k/uL (150-450); RBC 4.06 m/uL (3.80-5.40); WBC 5.5 k/uL (3.8-10.6)
[2018-01-05] MEDS: LEVOFLOXACIN 500MG-D5W PMX 500 MG in DEXTROSE/WATER 1 100ML.BAG IVPB SCH ×2 (06:24→10:45)
[2018-01-05] MEDS ORDERED: INDOMETHACIN 50MG SUPPOSITORY RECTAL ONE (06:30)
[2018-01-05 06:37] LABS: ALT 131 U/L (9-52); AST 71 U/L (14-36); Albumin 3.2 g/dL (3.5-5.0); Alkaline Phosphatase 131 U/L (38-126); Anion Gap 5 mmol/L; Blood Urea Nitrogen 7 mg/dL (7-17); Calcium 8.4 mg/dL (8.4-10.2); Carbon Dioxide 23 mmol/L (22-30); Chloride 112 mmol/L (98-107); Glucose 109 mg/dL (74-99); Potassium 3.7 mmol/L (3.5-5.1); Sodium 140 mmol/L (137-145); Total Bilirubin 0.4 mg/dL (0.2-1.3); Total Protein 5.4 g/dL (6.3-8.2)
[2018-01-05 08:20] LABS: Glucose,Whole Blood 133 mg/dL (75-99)
[2018-01-05] MEDS: HEPARIN SODIUM,PORCINE 5,000 UNIT/ML 1 ML VIAL SQ SCH ×2 (08:58→16:39)
[2018-01-05] MEDS: INSULIN ASPART 100 UNIT/ML 1 ML 10 ML VIAL SQ SCH ×3 (08:58→20:46)
[2018-01-05] MEDS: FAMOTIDINE 20 MG/2 ML VIAL IV SCH ×2 (08:58→21:12)
[2018-01-05] MEDS: SODIUM CHLORIDE 0.9% 1,000 ML IV SCH ×3 (09:03→21:22)
--- NOTE | 2018-01-05 09:49 | P.PN ---
Subjective Principal diagnosis: Abdominal pain Type2 DM Obesity Patient adimited for RUQ and epigastric pain post recent cholecistectpmy. Currently Pain much better and nausea resolved. Awaiting ERCP today. BG has been stable and in acceptable range Objective - Vital Signs Vital signs: Vital Signs Temp 97.9 F 01/05/18 09:27 Pulse 71 01/05/18 09:27 Resp 18 01/05/18 09:27 BP 125/72 01/05/18 09:27 Pulse Ox 96 01/05/18 09:27 Intake & Output 01/04/18 01/05/18 01/05/18 18:59 06:59 18:59 Intake Total 900 Output Total 200 1200 Balance 700 -1200 Intake: Oral 900 Output: Urine 200 1200 Other: Voiding Method Toilet # Voids 1 - Constitutional General appearance: Present: cooperative, no acute distress, obese - EENT Eyes: Present: anicteric sclerae, EOMI, PERRLA ENT: Present: normal oropharynx - Neck Neck: Present: normal ROM. Absent: lymphadenopathy, thyromegaly - Respiratory Respiratory: bilateral: CTA, other (few dry bibasilar crackles, improving with deep breaths ) - Cardiovascular Rhythm: regular Heart sounds: normal: S1, S2 - Gastrointestinal General gastrointestinal: Present: normal bowel sounds, soft, tenderness. Absent: organomegaly Localized gastrointestinal: tender: RUQ (no guarding, no rebound) - Neurologic Neurologic: Present: CNII-XII intact - Psychiatric Psychiatric: Present: A&O x's 3, appropriate affect, intact judgment & insight - Labs CBC & Chem 7: 01/05/18 06:06 01/05/18 06:06 Labs: Abnormal Lab Results - Last 24 Hours (Table) 01/04/18 01/04/18 01/04/18 Range/Units 09:54 11:46 14:45 Chloride (98-107) mmol/L Creatinine (0.52-1.04) mg/dL Glucose 154 H (74-99) mg/dL POC Glucose (mg/dL) 140 H (75-99) mg/dL AST 205 H (14-36) U/L ALT 192 H (9-52) U/L Alkaline Phosphatase 154 H (38-126) U/L Total Protein 6.1 L (6.3-8.2) g/dL Albumin (3.5-5.0) g/dL Urine Glucose (UA) Trace H (Negative) Ur Leukocyte Esterase Trace H (Negative) Amorphous Sediment Rare H (None) /hpf Urine Mucus Many H (None) /hpf 01/04/18 01/04/18 01/05/18 Range/Units 17:20 23:52 04:38 Chloride (98-107) mmol/L Creatinine (0.52-1.04) mg/dL Glucose (74-99) mg/dL POC Glucose (mg/dL) 130 H 108 H 113 H (75-99) mg/dL AST (14-36) U/L ALT (9-52) U/L Alkaline Phosphatase (38-126) U/L Total Protein (6.3-8.2) g/dL Albumin (3.5-5.0) g/dL Urine Glucose (UA) (Negative) Ur Leukocyte Esterase (Negative) Amorphous Sediment (None) /hpf Urine Mucus (None) /hpf 01/05/18 01/05/18 Range/Units 06:06 08:18 Chloride 112 H (98-107) mmol/L Creatinine 0.50 L (0.52-1.04) mg/dL Glucose 109 H (74-99) mg/dL POC Glucose (mg/dL) 133 H (75-99) mg/dL AST 71 H (14-36) U/L ALT 131 H (9-52) U/L Alkaline Phosphatase 131 H (38-126) U/L Total Protein 5.4 L (6.3-8.2) g/dL Albumin 3.2 L (3.5-5.0) g/dL Urine Glucose (UA) (Negative) Ur Leukocyte Esterase (Negative) Amorphous Sediment (None) /hpf Urine Mucus (None) /hpf - Imaging and Cardiology US - abdomen: report reviewed Assessment and Plan Plan: 1. Abdominal pain, with elevated transaminase and bilirubin, post cholecystectomy ERCP today pain and nausea control 2. 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 Obesity Time with Patient: Less than 30
[2018-01-05] MEDS ORDERED: fentaNYL (PF) 50 MCG/ML 2 ML AMP ONE (10:55)
[2018-01-05] MEDS ORDERED: GLUCAGON 1 MG/ML VIAL ONE (10:55)
[2018-01-05] MEDS ORDERED: KETAMINE 10 MG/ML 20 ML VIAL ONE (10:55)
[2018-01-05] MEDS ORDERED: MIDAZOLAM 2 MG/2 ML VIAL ONE (10:55)
[2018-01-05] MEDS ORDERED: PROPOFOL 10 MG/ML 20 ML VIAL IV ONE (10:55)
[2018-01-05] MEDS ORDERED: IV FLUID CONTINUATION 900 ML IV ONE (10:58)
--- NOTE | 2018-01-05 11:53 | P.PCN ---
Date of Procedure: 01/05/18 Procedure(s) Performed: Brief history: Patient is a 32 year-old pleasant lady scheduled for an ERCP as part of evaluation of abdominal pain and elevated serum transaminases for the last 2 days' duration. She was admitted to hospital week ago with similar symptoms and elevated LFTs which gradually improved. Ultrasound showed gallstones but no biliary ductal dilation. She underwent laparoscopic cholecystectomy 5 days ago and was sent home. 3 days later she presented to the hospital with severe right upper quadrant and epigastric abdominal pain and elevated LFTs. Because of clinical suspicion for retained common bile duct stone she is scheduled for an ERCP today. Procedure performed: ERCP with biliary sphincterotomy, balloon extraction Preoperative diagnoses: Epigastric pain and elevated LFTs rule out common bile duct stone IV sedation per anesthesia: Procedure: After informed consent was obtained from the patient and after the risks benefits and complications including bleeding perforation and pancreatitis explained in detail the patient was brought into the endoscopy unit. The patient was placed in prone position and IV conscious sedation was administered by anesthesia under continuous monitoring. The Olympus side-viewing duodenoscope was then inserted into the mouth and esophagus intubated without any difficulty. The scope was gradually advanced into the stomach and duodenum. The major papilla was identified without any difficulty. Initial cannulation resulted in opacification of the common bile duct which appeared dilated measuring at least 1 cm in diameter. I did not see any obvious filling defects but there appeared to be slight narrowing at the distal common bile duct. Subsequently I was trying to achieve a deep cannulation of the common bile duct using a guidewire technique and during this process pancreatic duct was cannulated couple of times. Subsequently I was able to achieve deeper cannulation of the common bile duct and this time by was injected in the common bile duct appeared dilated and there was a questionable filling defect in the mid common bile duct. At this time the catheter was removed and was exchanged over a sphincterotomy and biliary stent enterotomy was performed at 12 o'clock position and was extended to 1 cm. Following this a 10 mm balloon was passed over the guidewire into the proximal CBD and was gently withdrawn several times I did not see any stones exiting the ampulla. At this time the procedure was terminated and the patient tolerated the procedure well. Impression: Dilated common bile measuring at least 1 cm in diameter with a faint filling defect in the mid common bile duct status post biliary sphincterotomy and balloon extraction as described above. No obvious stone seen exiting the ampulla. Recommendations: The findings of this examination were discussed with the patient. She'll be started on a clear liquid diet. Pain medications as needed. Repeat labs in the morning.
--- NOTE | 2018-01-05 12:08 | FL ---
Fluoroscopy HISTORY: Dilated common bile duct 5 minutes 40 seconds fluoroscopy time supplied to the referring clinician. 6 intraoperative C-arm im ages document the procedure. See dictated report from gastroenterology.
[2018-01-05 12:44] LABS: Glucose,Whole Blood 207 mg/dL (75-99)
--- NOTE | 2018-01-05 14:39 | P.PN ---
Subjective Progress Note Date: 01/05/18 Principal diagnosis: Choledocholithiasis Patient doing better today. Her enzymes were improved. She underwent ERCP. Possible mid CBD filling defect. Sphincterotomy took place. No definite stone identified. Objective - Vital Signs Vital signs: Vital Signs Temp 98.2 F 01/05/18 12:20 Pulse 82 01/05/18 13:05 Resp 16 01/05/18 13:05 BP 107/74 01/05/18 13:05 Pulse Ox 97 01/05/18 13:05 Intake & Output 01/04/18 01/05/18 01/05/18 18:59 06:59 18:59 Intake Total 900 Output Total 200 1200 Balance 700 -1200 Intake: Oral 900 Output: Urine 200 1200 Other: Voiding Method Toilet # Voids 1 1 - Exam Abdomen: Soft, mild epigastric tenderness, incisions clean and dry - Labs CBC & Chem 7: 01/05/18 06:06 01/05/18 06:06 Labs: Abnormal Lab Results - Last 24 Hours (Table) 01/04/18 01/04/18 01/04/18 Range/Units 14:45 17:20 23:52 Chloride (98-107) mmol/L Creatinine (0.52-1.04) mg/dL Glucose (74-99) mg/dL POC Glucose (mg/dL) 130 H 108 H (75-99) mg/dL AST (14-36) U/L ALT (9-52) U/L Alkaline Phosphatase (38-126) U/L Total Protein (6.3-8.2) g/dL Albumin (3.5-5.0) g/dL Urine Glucose (UA) Trace H (Negative) Ur Leukocyte Esterase Trace H (Negative) Amorphous Sediment Rare H (None) /hpf Urine Mucus Many H (None) /hpf 01/05/18 01/05/18 01/05/18 Range/Units 04:38 06:06 08:18 Chloride 112 H (98-107) mmol/L Creatinine 0.50 L (0.52-1.04) mg/dL Glucose 109 H (74-99) mg/dL POC Glucose (mg/dL) 113 H 133 H (75-99) mg/dL AST 71 H (14-36) U/L ALT 131 H (9-52) U/L Alkaline Phosphatase 131 H (38-126) U/L Total Protein 5.4 L (6.3-8.2) g/dL Albumin 3.2 L (3.5-5.0) g/dL Urine Glucose (UA) (Negative) Ur Leukocyte Esterase (Negative) Amorphous Sediment (None) /hpf Urine Mucus (None) /hpf 01/05/18 Range/Units 12:41 Chloride (98-107) mmol/L Creatinine (0.52-1.04) mg/dL Glucose (74-99) mg/dL POC Glucose (mg/dL) 207 H (75-99) mg/dL AST (14-36) U/L ALT (9-52) U/L Alkaline Phosphatase (38-126) U/L Total Protein (6.3-8.2) g/dL Albumin (3.5-5.0) g/dL Urine Glucose (UA) (Negative) Ur Leukocyte Esterase (Negative) Amorphous Sediment (None) /hpf Urine Mucus (None) /hpf Assessment and Plan (1) Choledocholithiasis Narrative/Plan: Gradually advance diet. Probable discharge later tonight or tomorrow. Current Visit: No Status: Acute Code(s): K80.50 - CALCULUS OF BILE DUCT W/O CHOLANGITIS OR CHOLECYST W/O OBST SNOMED Code(s): 670142849
[2018-01-05 16:50] LABS: Glucose,Whole Blood 102 mg/dL (75-99)
[2018-01-06] MEDS: KETOROLAC 30 MG/ML 1 ML VIAL IVP SCH ×3 (00:41→13:43)
[2018-01-06] MEDS: HEPARIN SODIUM,PORCINE 5,000 UNIT/ML 1 ML VIAL SQ SCH ×2 (00:42→08:55)
[2018-01-06 01:08] LABS: Glucose,Whole Blood 177 mg/dL (75-99)
[2018-01-06] MEDS: LEVOFLOXACIN 500MG-D5W PMX 500 MG in DEXTROSE/WATER 1 100ML.BAG IVPB SCH (06:36)
[2018-01-06 06:42] LABS: Basophils % (A) 0 %; Eosinophils # (A) 0.3 k/uL (0-0.7); Eosinophils % (A) 5 %; HCT 33.9 % (34.0-46.0); HGB 11.2 gm/dL (11.4-16.0); Lymphocytes # (A) 1.7 k/uL (1.0-4.8); Lymphocytes % (A) 31 %; MCH 29.5 pg (25.0-35.0); MCV 89.6 fL (80.0-100.0); Mean Platelet Volume 6.8; Monocytes # (A) 0.5 k/uL (0-1.0); Monocytes % (A) 8 %; Neutrophils % (A) 54 %; Platelet Count 227 k/uL (150-450); RBC 3.78 m/uL (3.80-5.40); WBC 5.6 k/uL (3.8-10.6)
[2018-01-06 06:51] LABS: Glucose,Whole Blood 119 mg/dL (75-99)
[2018-01-06 06:58] LABS: ALT 90 U/L (9-52); AST 31 U/L (14-36); Alkaline Phosphatase 104 U/L (38-126); Anion Gap 7 mmol/L; Blood Urea Nitrogen 6 mg/dL (7-17); Calcium 8.2 mg/dL (8.4-10.2); Carbon Dioxide 20 mmol/L (22-30); Chloride 113 mmol/L (98-107); Glucose 121 mg/dL (74-99); Potassium 3.9 mmol/L (3.5-5.1); Sodium 140 mmol/L (137-145); Total Bilirubin 0.3 mg/dL (0.2-1.3); Total Protein 5.3 g/dL (6.3-8.2)
[2018-01-06] MEDS: INSULIN ASPART 100 UNIT/ML 1 ML 10 ML VIAL SQ SCH ×2 (06:58→13:43)
[2018-01-06 07:55] VITALS: RESP 16
[2018-01-06] MEDS: FAMOTIDINE 20 MG/2 ML VIAL IV SCH (08:54)
[2018-01-06] MEDS: SODIUM CHLORIDE 0.9% 1,000 ML IV SCH (08:55)
--- NOTE | 2018-01-06 12:16 | P.DS ---
<Andreina Walker - Last Filed: 01/06/18 11:45> Providers Date of admission: 01/04/18 04:48 Expected date of discharge: 01/06/18 Attending physician: Tulio Cortes Consults: 01/04/18 08:23 Consult Physician Routine Consulting Provider: Shelia Manning Consult Reason/Comments: MEDICAL MANAGEMENT..TYPE II DIABETIC Do you want consulting provider notified?: Yes Primary care physician: Jennifer Rust MD Hospital Course: 32-year-old female was hospitalized a week prior with cholelithiasis underwent a cholecystectomy at that time. Patient had been doing relatively well. Patient reports that 3 days after being discharged develop severe right upper quadrant abdominal pain with elevated liver enzymes. Patient was seen by GI service underwent an ERCP. Findings showed Dilated common bile duct with faint filling defect in the mid common bile duct no obvious stones were seen in the exiting ampulla The day of discharge patient stated her abdominal pain have resolved is not nauseated or vomiting in the liver enzymes were trending down. Patient was anxious for discharge. Surgical dressing sites dry AST was down to 90 ALT 104 total bili 0.3 Impression discharge diagnosis Present on admission right upper quadrant pain epigastric pain with elevated liver enzymes likely due to a common bile duct stone recent laparoscopic cholecystectomy Elevated liver enzymes Type 2 diabetes non-insulin Status post ERCP done on January 05 showed Dilated common bile measuring at least 1 cm in diameter with a faint filling defect in the mid common bile duct status post biliary sphincterotomy and balloon extraction No obvious stone seen exiting the ampulla. Status post January 05 ERCP with biliary sphincterotomy, balloon extraction The above impression and plan of care have been discussed and directed by signing physician. Andreina Walker nurse practitioner acting as scribe for signing physician. Patient Condition at Discharge: Stable Plan - Discharge Summary New Discharge Prescriptions: New Acetaminophen Tab [Tylenol Tab] 650 mg PO Q4H #30 tablet Continue [id number] Acid [-U Capsule (formulary)] 1 cap PO DAILY metFORMIN HCL 1,000 mg PO BID Norethindrone [Hazel] 0.35 mg PO DAILY Discharge Medication List [id number] Acid [-U Capsule (formulary)] 1 cap PO DAILY 06/18 [History] metFORMIN HCL 1,000 mg PO BID 12/28/17 [History] Norethindrone [Hazel] 0.35 mg PO DAILY 12/29/17 [History] Acetaminophen Tab [Tylenol Tab] 650 mg PO Q4H #30 tablet 01/06/18 [Rx] Follow up Appointment(s)/Referral(s): Tulio Cortes MD [Medical Doctor] - 01/15/18 10:00 am Jennifer Rust MD [Primary Care Provider] - 1-2 days Rabia Pelayo MD [STAFF PHYSICIAN] - 01/14/18 1:45 pm Activity/Diet/Wound Care/Special Instructions: No tub bath for six weeks. Shower daily. No lifting over 10 pounds for the next 6 weeks.. May use ice packs to surgical site. No driving while taking narcotic for pain. PLEASE DO TREATMENT DISCUSSED FOR HEAD LICE. Discharge Disposition: HOME SELF-CARE <Tulio Cortes - Last Filed: 01/08/18 16:40> - Discharge Diagnosis(es) (1) Choledocholithiasis Status: Acute Hospital Course: as above. Patient doing well at this time. Stable for discharge.
[2018-01-06 12:22] VITALS: BP 115/66; PULSE 57; TEMP 98.3
--- NOTE | 2018-01-06 13:30 | P.PN ---
Subjective Pt is feeling much better today. Tolerated regular diet well. No abd pain nausea or vomiting . ERCP with mild fiiling defect, no stones Objective - Vital Signs Vital signs: Vital Signs Temp 98.3 F 01/06/18 11:08 Pulse 57 L 01/06/18 11:08 Resp 16 01/06/18 11:08 BP 115/66 01/06/18 11:08 Pulse Ox 97 01/06/18 11:08 Intake & Output 01/05/18 01/06/18 01/06/18 18:59 06:59 18:59 Output Total 950 Balance -950 Output: Urine 950 Other: Voiding Method Toilet # Voids 1 1 - Constitutional General appearance: Present: cooperative, no acute distress - EENT Eyes: Present: anicteric sclerae, EOMI - Respiratory Respiratory: bilateral: CTA - Cardiovascular Rhythm: regular Heart sounds: normal: S1, S2 - Gastrointestinal General gastrointestinal: Present: soft. Absent: tenderness - Labs CBC & Chem 7: 01/06/18 06:19 01/06/18 06:19 Labs: Abnormal Lab Results - Last 24 Hours (Table) 01/05/18 01/06/18 01/06/18 Range/Units 16:30 00:49 06:19 RBC 3.78 L (3.80-5.40) m/uL Hgb 11.2 L (11.4-16.0) gm/dL Hct 33.9 L (34.0-46.0) % Chloride (98-107) mmol/L Carbon Dioxide (22-30) mmol/L BUN (7-17) mg/dL Glucose (74-99) mg/dL POC Glucose (mg/dL) 102 H 177 H (75-99) mg/dL Calcium (8.4-10.2) mg/dL ALT (9-52) U/L Total Protein (6.3-8.2) g/dL Albumin (3.5-5.0) g/dL 01/06/18 01/06/18 Range/Units 06:19 06:41 RBC (3.80-5.40) m/uL Hgb (11.4-16.0) gm/dL Hct (34.0-46.0) % Chloride 113 H (98-107) mmol/L Carbon Dioxide 20 L (22-30) mmol/L BUN 6 L (7-17) mg/dL Glucose 121 H (74-99) mg/dL POC Glucose (mg/dL) 119 H (75-99) mg/dL Calcium 8.2 L (8.4-10.2) mg/dL ALT 90 H (9-52) U/L Total Protein 5.3 L (6.3-8.2) g/dL Albumin 3.0 L (3.5-5.0) g/dL Assessment and Plan Plan: 1. Abd pain resolved tolerated diet well 2. Type2 DM BG stable no changes in home meds on discharge OK for discharge from IM stand point
== END 2018-01-06 16:31 | disposition home or self-care (01) ==
LOC: EC 22:39 → 6PED 01-04 04:48
PROVIDERS: ADMIT Surgery; ATTEND Surgery
DX: R10.13 Epigastric pain (principal); R74.0 Nonspecific elevation of levels of transaminase and lactic acid dehydrogenase [LDH]; R10.11 Right upper quadrant pain; R11.2 Nausea with vomiting, unspecified; K82.8 Other specified diseases of gallbladder; G89.18 Other acute postprocedural pain; E11.9 Type 2 diabetes mellitus without complications; R82.90 Unspecified abnormal findings in urine; E66.9 Obesity, unspecified; E80.6 Other disorders of bilirubin metabolism; Z68.30 Body mass index [BMI] 30.0-30.9, adult; Z79.84 Long term (current) use of oral hypoglycemic drugs; Z79.3 Long term (current) use of hormonal contraceptives; Z88.0 Allergy status to penicillin; Z91.048 Other nonmedicinal substance allergy status; Z90.49 Acquired absence of other specified parts of digestive tract; Z87.891 Personal history of nicotine dependence; Z80.0 Family history of malignant neoplasm of digestive organs; Z80.3 Family history of malignant neoplasm of breast; Z80.49 Family history of malignant neoplasm of other genital organs; Z83.3 Family history of diabetes mellitus
CPT/HCPCS: 99285 ×2; 96365; 96372 ×2; 96375; 96376 ×2; 36415; 80053 ×3; 82150; 83690; 85025 ×3; 81001; 81025; 74330; 74018; 76705; 43277; 43262; G0378 ×3; J2250; J1610; J1644 ×3; J2405; J1956 ×2; J3010; J1885 ×3; J2704; C1769

== ENCOUNTER → 2019-01-06 | Outpatient (CLI) | payer OTHER | END | disposition home or self-care (01) | LOC: LABWHC1 14:31 | PROVIDERS: ATTEND Obstetrics & Gynecology | DX: N92.6 Irregular menstruation, unspecified (principal) | CPT/HCPCS: 36415; 84702 ==

== ENCOUNTER → 2019-06-08 | Outpatient (CLI) | payer OTHER ==
--- NOTE | 2019-06-09 11:59 | ECHOF ---
Referral Reason:R07.89 atypical chest pain MEASUREMENTS -------- HEIGHT: 165.1 cm WEIGHT: 70.3 kg BP: 115/72 RVIDd: 2.6 cm (< 3.3) IVSd: 0.9 cm (0.6 - 1.1) LVIDd: 3.9 cm (3.9 - 5.3) LVPWd: 1.0 cm (0.6 - 1.1) IVSs: 1.3 cm LVIDs: 2.6 cm LVPWs: 1.3 cm LA Diam: 3.0 cm (2.7 - 3.8) LAESV Index (A-L): 24.46 ml/m Ao Diam: 2.7 cm (2.0 - 3.7) AV Cusp: 2.0 cm (1.5 - 2.6) MV EXCURSION: 14.577 mm (> 18.000) MV EF SLOPE: 86 mm/s (70 - 150) EPSS: 0.4 cm MV E Teo: 1.10 m/s MV DecT: 172 ms MV A Teo: 0.55 m/s MV E/A Ratio: 1.99 RAP: 5.00 mmHg RVSP: 24.64 mmHg TAPSE: 26.36 mm FINDINGS -------- Sinus rhythm. This was a technically good study. The left ventricular size is normal. Left ventricular wall thickness is normal. Overall left vent ricular systolic function is normal with, an EF between 60 - 65 %. The right ventricle is normal in size. Normal LA size by volume 22+/-6 ml/m2. The right atrium is normal in size. Interatrial and interventricular septum intact. The aortic valve is trileaflet and appears structurally normal. There is trace mitral regurgitation. Mild tricuspid regurgitation present. Right ventricular systolic pressure is normal at < 35 mmHg. There is no pulmonic regurgitation present. The aortic root size is normal. Normal inferior vena cava with normal inspiratory collapse consistent with estimated right atrial pre ssure of 5 mmHg. There is no pericardial effusion. CONCLUSIONS -------- 1. Sinus rhythm. 2. This was a technically good study. 3. The left ventricular size is normal. 4. Left ventricular wall thickness is normal. 5. Overall left ventricular systolic function is normal with, an EF between 60 - 65 %. 6. The right ventricle is normal in size. 7. Normal LA size by volume 22+/-6 ml/m2. 8. The right atrium is normal in size. 9. Interatrial and interventricular septum intact. 10. The aortic valve is trileaflet and appears structurally normal. 11. There is trace mitral regurgitation. 12. Mild tricuspid regurgitation present. 13. Right ventricular systolic pressure is normal at < 35 mmHg. 14. There is no pulmonic regurgitation present. 15. The aortic root size is normal. 16. Normal inferior vena cava with normal inspiratory collapse consistent with estimated right atrial pressure of 5 mmHg. 17. There is no pericardial effusion. [employer] SUPERVISOR: Gypsy Sahu RDCS
== END ==
LOC: RADECHMAIN 14:43
PROVIDERS: ATTEND Family Medicine
DX: I07.1 Rheumatic tricuspid insufficiency (principal)
CPT/HCPCS: 93306

== ENCOUNTER → 2020-01-13 | Outpatient (CLI) | payer OTHER ==
[2020-01-13 17:39] LABS: Folate, Serum 12.3 ng/mL
== END | disposition home or self-care (01) ==
LOC: LABWHC1 09:35
PROVIDERS: ATTEND Family Medicine
DX: R20.2 Paresthesia of skin (principal); R20.0 Anesthesia of skin
CPT/HCPCS: 36415; 82607; 82746; 84207; 84443

== ENCOUNTER → 2020-05-05 | Outpatient (CLI) | payer OTHER ==
--- NOTE | 2020-05-06 02:50 | MR ---
EXAMINATION TYPE: MR brain wo/w con DATE OF EXAM: 05/05/2020 COMPARISON: None HISTORY: Pain, numbness and tingling down RT leg and RT arm for many years, no prev CONTRAST: Standard multiplanar, multisequence MRI departmental protocol utilizing 7.5ml mL intravenous Gadavist gadolinium contrast. Ventricles and sulci appear normal. There is no mass effect nor midline shift. There is no evidence o f intracranial hemorrhage. Diffusion images show no evidence of an infarct. There is mild mucosal thi ckening in the ethmoid air cells. The corpus callosum appears normal. Brainstem is intact. Sella turc ica appears normal. There is no evidence of orbital mass. Contrast images show no pathologic enhancement. There is normal enhancement of the venous sinuses. IMPRESSION: Normal MR scan of the brain.
== END | disposition home or self-care (01) ==
LOC: RADMRIMAIN 19:29
PROVIDERS: ATTEND Family Medicine
DX: G35 Multiple sclerosis (principal); R20.2 Paresthesia of skin; R20.0 Anesthesia of skin
CPT/HCPCS: 70553; A9585

== ENCOUNTER 2020-10-25 16:36 | Emergency (ER) | payer OTHER ==
[2020-10-25 16:46] VITALS: TEMP 97.5
[2020-10-25 17:37] LABS: Basophils % (A) 0 %; Eosinophils # (A) 0.1 k/uL (0-0.7); Eosinophils % (A) 1 %; HCT 38.7 % (34.0-46.0); HGB 13.6 gm/dL (11.4-16.0); Lymphocytes % (A) 22 %; MCH 32.1 pg (25.0-35.0); MCV 91.6 fL (80.0-100.0); Mean Platelet Volume 6.6; Monocytes # (A) 0.5 k/uL (0-1.0); Monocytes % (A) 6 %; Neutrophils # (A) 6.4 k/uL (1.3-7.7); Neutrophils % (A) 70 %; Platelet Count 317 k/uL (150-450); RBC 4.23 m/uL (3.80-5.40); RDW 11.9 % (11.5-15.5); WBC 9.2 k/uL (3.8-10.6)
[2020-10-25 17:42] LABS: ALT 9 U/L (4-34); AST 19 U/L (14-36); African American GFR (CKD) >90 (>60 ml/min/1.73 sqM); Albumin 4.5 g/dL (3.5-5.0); Alkaline Phosphatase 81 U/L (38-126); Anion Gap 9 mmol/L; Blood Urea Nitrogen 6 mg/dL (7-17); Calcium 9.6 mg/dL (8.4-10.2); Carbon Dioxide 26 mmol/L (22-30); Chloride 101 mmol/L (98-107); Glucose 148 mg/dL (74-99); Non-African American GFR(CKD) >90 (>60 ml/min/1.73 sqM); Sodium 136 mmol/L (137-145); Total Bilirubin 0.2 mg/dL (0.2-1.3); Total Protein 7.3 g/dL (6.3-8.2)
[2020-10-25 18:31] LABS: HCG,Quantitative Serum 28103.6 mIU/mL
--- NOTE | 2020-10-25 18:49 | ED ---
General Adult HPI - General Chief complaint: Vaginal Bleeding Stated complaint: 7Wks Preg, Spotting Time Seen by Provider: 10/25/20 16:57 Source: patient, RN notes reviewed Mode of arrival: ambulatory Limitations: no limitations - History of Present Illness Initial comments: 35-year-old female with a past medical history of NIDDM presents to the em ergency room for a chief complaint of vaginal bleeding. Patient reports that she is about 7 weeks' . She reports that earlier today about an hour prior to arrival she reached up to stretch and felt a strain in her lower abdomen. Patient states she had some mild cramping and then did notice a little bit of spotting. She says since resolved. Patient is concerned given the vaginal bleeding because she is . Patient did have an intrauterine ultrasound a week ago that was normal according to her.Patient has no other complaints at this time including shortness of breath, chest pain, abdominal pain, nausea or vomiting, headache, or visual changes. - Related Data Home Medications Medication Instructions Recorded Confirmed [id number] Acid 1 cap PO DAILY 10/31/16 01/04/18 [-U Capsule (formulary)] metFORMIN HCL 1,000 mg PO BID 12/28/17 01/04/18 Norethindrone [Hazel] 0.35 mg PO DAILY 12/29/17 01/04/18 Previous Rx's Medication Instructions Recorded Acetaminophen Tab [Tylenol Tab] 650 mg PO Q4H #30 tablet 01/06/18 Allergies Allergy/AdvReac Type Severity Reaction Status Date / Time grass pollen Allergy Unknown Verified 10/25/20 16:42 Penicillins Allergy Anaphylaxis Verified 10/25/20 16:42 pollen extracts Allergy Unknown Verified 10/25/20 16:42 Review of Systems ROS Statement: Those systems with pertinent positive or pertinent negative responses have been documented in the HPI. ROS Other: All systems not noted in ROS Statement are negative. Past Medical History Past Medical History: Diabetes Mellitus Additional Past Medical History / Comment(s): Type 2 diabetes History of Any Multi-Drug Resistant Organisms: None Reported Past Surgical History: Cholecystectomy Additional Past Surgical History / Comment(s): Eye surgery for strabismus. LEEP excision of the cervix (after the delivery of her last baby.) Patient's had 2 previous term deliveries. Past Anesthesia/Blood Transfusion Reactions: No Reported Reaction Past Psychological History: No Psychological Hx Reported Smoking Status: Never smoker Past Alcohol Use History: Occasional Past Drug Use History: None Reported - Past Family History Father Family Medical History: Cancer Additional Family Medical History / Comment(s): COLON Mother Family Medical History: Cancer, Diabetes Mellitus Additional Family Medical History / Comment(s): BREAST AND UTERINE CA General Exam Limitations: no limitations General appearance: alert, in no apparent distress Head exam: Present: atraumatic, normocephalic, normal inspection Eye exam: Present: normal appearance, PERRL, EOMI. Absent: scleral icterus, conjunctival injection, periorbital swelling ENT exam: Present: normal exam, mucous membranes moist Neck exam: Present: normal inspection, full ROM. Absent: tenderness, meningismus, lymphadenopathy Respiratory exam: Present: normal lung sounds bilaterally. Absent: respiratory distress, wheezes, rales, rhonchi, stridor Cardiovascular Exam: Present: regular rate, normal rhythm, normal heart sounds GI/Abdominal exam: Present: soft, normal bowel sounds. Absent: distended, tenderness, guarding, rebound, rigid Neurological exam: Present: alert Course Vital Signs 10/25/20 16:42 Temperature 97.5 F L Pulse Rate 83 Respiratory 18 Rate Blood Pressure 128/85 O2 Sat by Pulse 100 Oximetry Medical Decision Making - Medical Decision Making Vitals are stable. CBC CMP unremarkable. HCG Quant is 28,000. Patient is noted to be A-, will require RhoGAM. Ultrasound shows intrauterine gestational sac with pole. No definite yolk sac seen. Suspicious of demise. cardiac motion was identified. Follow-up in 7 days would be confirmatory. There is upper small subphrenic fluid collection could be. Gestational hemorrhage as well. Discussed these findings with patient. We will repeat hCG in 2 days. Patient does have JOINT FILLER Dr Rose that she will follow up with. Results will be sent to her. I did discuss the patient should've a repeat ultrasound in 7 days. She will return here for any worsening symptoms. Patient was given RhoGAM. - Lab Data Result diagrams: 10/25/20 17:19 10/25/20 17:19 Lab Results 10/25/20 10/25/20 10/25/20 Range/Units 17:19 17:19 17:19 WBC 9.2 (3.8-10.6) k/uL RBC 4.23 (3.80-5.40) m/uL Hgb 13.6 (11.4-16.0) gm/dL Hct 38.7 (34.0-46.0) % MCV 91.6 (80.0-100.0) fL MCH 32.1 (25.0-35.0) pg MCHC 35.0 (31.0-37.0) g/dL RDW 11.9 (11.5-15.5) % Plt Count 317 (150-450) k/uL MPV 6.6 Neutrophils % 70 % Lymphocytes % 22 % Monocytes % 6 % Eosinophils % 1 % Basophils % 0 % Neutrophils # 6.4 (1.3-7.7) k/uL Lymphocytes # 2.0 (1.0-4.8) k/uL Monocytes # 0.5 (0-1.0) k/uL Eosinophils # 0.1 (0-0.7) k/uL Basophils # 0.0 (0-0.2) k/uL Sodium 136 L (137-145) mmol/L Potassium 4.0 (3.5-5.1) mmol/L Chloride 101 (98-107) mmol/L Carbon Dioxide 26 (22-30) mmol/L Anion Gap 9 mmol/L BUN 6 L (7-17) mg/dL Creatinine 0.52 (0.52-1.04) mg/dL Est GFR (CKD-EPI)AfAm >90 (>60 ml/min/1.73 sqM) Est GFR (CKD-EPI)NonAf >90 (>60 ml/min/1.73 sqM) Glucose 148 H (74-99) mg/dL Calcium 9.6 (8.4-10.2) mg/dL Total Bilirubin 0.2 (0.2-1.3) mg/dL AST 19 (14-36) U/L ALT 9 (4-34) U/L Alkaline Phosphatase 81 (38-126) U/L Total Protein 7.3 (6.3-8.2) g/dL Albumin 4.5 (3.5-5.0) g/dL HCG, Quant 45123.6 mIU/mL Urine Color Urine Appearance (Clear) Urine pH (5.0-8.0) Ur Specific [place] (1.001-1.035) Urine Protein (Negative) Urine Glucose (UA) (Negative) Urine Ketones (Negative) Urine Blood (Negative) Urine Nitrite (Negative) Urine Bilirubin (Negative) Urine Urobilinogen (<2.0) mg/dL Ur Leukocyte Esterase (Negative) Blood Type A Negative Blood Type Recheck A Neg Bld Type Recheck Status No 10/25/20 Range/Units 19:20 WBC (3.8-10.6) k/uL RBC (3.80-5.40) m/uL Hgb (11.4-16.0) gm/dL Hct (34.0-46.0) % MCV (80.0-100.0) fL MCH (25.0-35.0) pg MCHC (31.0-37.0) g/dL RDW (11.5-15.5) % Plt Count (150-450) k/uL MPV Neutrophils % % Lymphocytes % % Monocytes % % Eosinophils % % Basophils % % Neutrophils # (1.3-7.7) k/uL Lymphocytes # (1.0-4.8) k/uL Monocytes # (0-1.0) k/uL Eosinophils # (0-0.7) k/uL Basophils # (0-0.2) k/uL Sodium (137-145) mmol/L Potassium (3.5-5.1) mmol/L Chloride (98-107) mmol/L Carbon Dioxide (22-30) mmol/L Anion Gap mmol/L BUN (7-17) mg/dL Creatinine (0.52-1.04) mg/dL Est GFR (CKD-EPI)AfAm (>60 ml/min/1.73 sqM) Est GFR (CKD-EPI)NonAf (>60 ml/min/1.73 sqM) Glucose (74-99) mg/dL Calcium (8.4-10.2) mg/dL Total Bilirubin (0.2-1.3) mg/dL AST (14-36) U/L ALT (4-34) U/L Alkaline Phosphatase (38-126) U/L Total Protein (6.3-8.2) g/dL Albumin (3.5-5.0) g/dL HCG, Quant mIU/mL Urine Color Light Yellow Urine Appearance Clear (Clear) Urine pH 6.0 (5.0-8.0) Ur Specific [place] 1.009 (1.001-1.035) Urine Protein Negative (Negative) Urine Glucose (UA) Negative (Negative) Urine Ketones Negative (Negative) Urine Blood Negative (Negative) Urine Nitrite Negative (Negative) Urine Bilirubin Negative (Negative) Urine Urobilinogen <2.0 (<2.0) mg/dL Ur Leukocyte Esterase Negative (Negative) Blood Type Blood Type Recheck Bld Type Recheck Status Disposition Clinical Impression: Threatened miscarriage Disposition: HOME SELF-CARE Condition: Good Instructions (If sedation given, give patient instructions): Threatened Miscarriage (ED) Additional Instructions: Please repeat hCG in 2 days. You should have a repeat ultrasound in about one week outpatient. If bleeding or pain worsens significantly return to the emergency room. Please notify her JOINT FILLER tomorrow about your ER visit. Is patient prescribed a controlled substance at d/c from ED?: No Referrals: Dallas Mark [Primary Care Provider] - 1-2 days Time of Disposition: 19:45
--- NOTE | 2020-10-25 18:54 | US ---
EXAMINATION TYPE: Transabdominal DATE OF EXAM: 10/25/2020 6:35 PM COMPARISON: NONE for this . CLINICAL HISTORY: pain. Pain. Hx LEEP. . EXAM PERFORMED: Transvaginal (TV) and Transabdominal (TA) EXAM MEASUREMENTS: GESTATIONAL AGE / DATING Physician Established: (7 weeks/4 days) EDC: 06/09/2021 Dates by LMP: Unknown Dates by First Scan: This is first scan at this facility. Dates by Current Scan for: (6 weeks/6 days) EDC: 06/14/2021. Gestational sac with possible CRL seen at this time. Heart tones not seen at thi s time, possibly too early to visualize/limited visibility. MATERNAL ANATOMY Uterus: 10.8 x 7.8 x 6.6 cm. Right Ovary: 3.7 x 3.0 x 2.8 cm. Anechoic area seen: 1.2 x 1.5 x 1.2 cm. Area of mixed echogenicity s een as mentioned below, possible corpus luteal cyst. Left Ovary: Not seen. Post CDS / Adnexa: Minimal fluid seen in CDS. Presence of free fluid: Yes, in CDS: 1.8 x 0.8 x 0.8 cm. Presence of corpus luteal cyst: Possible, within right ovary. Area of mixed echogenicity and peripher al vascularity seen: 2.5 x 2.2 x 2.1 cm. Presence of subchorionic bleed: Possible. Hypoechoic area seen adjacent to the gestational sac: 1.6 x 1.7 x 1.2 cm. GESTATION / SURVEY CRL: 0.90 cm. (6 weeks/6 days) MSD: 2.27 cm. (6 weeks/6 days) Yolk Sac (normal less than 6mm): Not seen. Heart Rate: Heart tones not seen at this time. IUP: Gestational sac with possible CRL seen. No definite heart tones seen at this time, possib ly too early to visualize/limited visibility. Date of LMP: Unknown. Beta HcG (if available): 28,103.6 IMPRESSION: Intrauterine gestational sac with pole. No definite yolk sac seen. I'm suspicious of trinity se.. cardiac motion was not identified. Follow-up exam in 7 days would be confirmatory. Upper [place] subchorionic fluid collection could be periGestational hemorrhage.
[2020-10-25] MEDS ORDERED: Rhogam IMMUNE GLOBULIN 1,500 UNIT/1 ML IM STA (19:23)
[2020-10-25 19:28] LABS: Appearance,Urine Clear (Clear); Bilirubin,Urine Negative (Negative); Blood,Urine Negative (Negative); Color,Urine Light Yellow; Glucose,Urine (UA) Negative (Negative); Ketones,Urine Negative (Negative); Leukocyte Esterase,Urine Negative (Negative); Nitrite,Urine Negative (Negative); Protein,Urine Negative (Negative); Specific Gravity,Urine 1.009 (1.001-1.035); Urobilinogen,Urine <2.0 mg/dL (<2.0)
[2020-10-25 20:38] VITALS: BP 124/82; PULSE 86; RESP 16
== END 2020-10-25 20:38 | disposition home or self-care (01) ==
LOC: EC 16:36
DX: O20.0 Threatened abortion (principal); O24.111 Pre-existing type 2 diabetes mellitus, in pregnancy, first trimester; E11.9 Type 2 diabetes mellitus without complications; Z79.84 Long term (current) use of oral hypoglycemic drugs; Z3A.01 Less than 8 weeks gestation of pregnancy; Z88.0 Allergy status to penicillin
CPT/HCPCS: 36415; 86900; 86901; 80053; 85025; 86850; 81003; 84702; 76801; 76817; 99284; 96372; J2791

== ENCOUNTER 2020-11-07 17:40 | Emergency (ER) | payer OTHER ==
[2020-11-07 17:46] VITALS: TEMP 98.4
[2020-11-07] MEDS ORDERED: IBUPROFEN 600 MG TAB PO STA (18:33)
[2020-11-07 18:58] LABS: Appearance,Urine Bloody (Clear); Color,Urine Red; RBC,Urine >182 /hpf (0-5); WBC,Urine 16 /hpf (0-5)
[2020-11-07 19:09] LABS: Basophils % (A) 0 %; Eosinophils # (A) 0.2 k/uL (0-0.7); Eosinophils % (A) 2 %; HCT 37.6 % (34.0-46.0); HGB 12.8 gm/dL (11.4-16.0); Lymphocytes # (A) 1.8 k/uL (1.0-4.8); Lymphocytes % (A) 22 %; MCH 31.1 pg (25.0-35.0); MCHC 34.2 g/dL (31.0-37.0); MCV 90.9 fL (80.0-100.0); Mean Platelet Volume 6.6; Monocytes # (A) 0.5 k/uL (0-1.0); Monocytes % (A) 6 %; Neutrophils # (A) 5.6 k/uL (1.3-7.7); Neutrophils % (A) 68 %; Platelet Count 291 k/uL (150-450); RBC 4.13 m/uL (3.80-5.40); RDW 11.8 % (11.5-15.5); WBC 8.2 k/uL (3.8-10.6)
[2020-11-07 19:27] LABS: ALT 10 U/L (4-34); AST 20 U/L (14-36); African American GFR (CKD) >90 (>60 ml/min/1.73 sqM); Albumin 4.2 g/dL (3.5-5.0); Alkaline Phosphatase 88 U/L (38-126); Anion Gap 9 mmol/L; Blood Urea Nitrogen 6 mg/dL (7-17); Calcium 9.1 mg/dL (8.4-10.2); Carbon Dioxide 28 mmol/L (22-30); Chloride 101 mmol/L (98-107); Glucose 192 mg/dL (74-99); Non-African American GFR(CKD) >90 (>60 ml/min/1.73 sqM); Sodium 138 mmol/L (137-145); Total Bilirubin 0.2 mg/dL (0.2-1.3); Total Protein 6.9 g/dL (6.3-8.2)
--- NOTE | 2020-11-07 19:30 | ED ---
Female Urogenital HPI - General Source: patient Mode of arrival: ambulatory Limitations: no limitations <Jennifer Diego - Last Filed: 11/07/20 19:29> <Manpreet Morley - Last Filed: 11/07/20 20:13> - General Chief complaint: Vaginal Bleeding Stated complaint: Miscarriage Time Seen by Provider: 11/07/20 18:09 - History of Present Illness Initial comments: Patient is a 35-year-old female presenting to the emergency Department with complaints of vaginal bleeding and cramping that started this morning. Patient states she was here 2 weeks ago, for vaginal spotting, she had an ultrasound that showed possible demise. They discussed with her that she most likely could be miscarrying. Patient states she has not had any bleeding last 2 weeks until this morning. She states she went to urinate and then when she stood up she had blood clots, possible material coming out. Patient states her cramps have been coming more severe ever since. She states she has a follow-up planned with her LOADMASTER tomorrow, at [facility], but secondary to the bleeding she wanted to come in today. She is . She states she did take some Tylenol about 5 hours prior to arrival. She denies any fevers or chills. She has no further complaints at this time. (Jennifer Diego) - Related Data Home Medications Medication Instructions Recorded Confirmed Bpm-Vicc-Zpjac Acid 1 cap PO DAILY 10/31/16 01/04/18 [-U Capsule (formulary)] metFORMIN HCL 1,000 mg PO BID 12/28/17 01/04/18 Norethindrone [Hazel] 0.35 mg PO DAILY 12/29/17 01/04/18 Previous Rx's Medication Instructions Recorded Acetaminophen Tab [Tylenol Tab] 650 mg PO Q4H #30 tablet 01/06/18 Allergies Allergy/AdvReac Type Severity Reaction Status Date / Time grass pollen Allergy Unknown Verified 11/07/20 17:45 Penicillins Allergy Anaphylaxis Verified 11/07/20 17:45 pollen extracts Allergy Unknown Verified 11/07/20 17:45 Review of Systems ROS Other: All systems not noted in ROS Statement are negative. <Jennifer Diego - Last Filed: 11/07/20 19:29> ROS Other: All systems not noted in ROS Statement are negative. <Manpreet Morley - Last Filed: 11/07/20 20:13> ROS Statement: Those systems with pertinent positive or pertinent negative responses have been documented in the HPI. Past Medical History Past Medical History: Diabetes Mellitus Additional Past Medical History / Comment(s): Type 2 diabetes History of Any Multi-Drug Resistant Organisms: None Reported Past Surgical History: Cholecystectomy Additional Past Surgical History / Comment(s): Eye surgery for strabismus. LEEP excision of the cervix (after the delivery of her last baby.) Patient's had 2 previous term deliveries. Past Anesthesia/Blood Transfusion Reactions: No Reported Reaction Past Psychological History: No Psychological Hx Reported Smoking Status: Never smoker Past Alcohol Use History: Occasional Past Drug Use History: None Reported - Past Family History Father Family Medical History: Cancer Additional Family Medical History / Comment(s): COLON Mother Family Medical History: Cancer, Diabetes Mellitus Additional Family Medical History / Comment(s): BREAST AND UTERINE CA <Jennifer Diego - Last Filed: 11/07/20 19:29> General Exam Limitations: no limitations <Jennifer Diego - Last Filed: 11/07/20 19:29> - General Exam Comments Initial Comments: GENERAL: Patient is well-developed and well-nourished. Patient is nontoxic and in no acute distress. HEAD: Atraumatic, normocephalic. EYES: Pupils equal round and reactive to light, extraocular movements intact, sclera anicteric, conjunctiva are normal. Eyelids were unremarkable. ENT: TMs normal, nares patent, oropharynx clear without exudates. Moist mucous membranes. NECK: Normal range of motion, supple without lymphadenopathy or JVD. LUNGS: Unlabored respirations. Breath sounds clear to auscultation bilaterally and equal. No wheezes rales or rhonchi. HEART: Regular rate and rhythm without murmurs, rubs or gallops. ABDOMEN: Soft, lower abdominal discomfort with palpation., normoactive bowel sounds. No guarding, no rebound. No masses appreciated. : Deferred MUSCULOSKELETAL: Normal extremities with adequate strength and normal range of motion, no pitting or edema. No clubbing or cyanosis. NEUROLOGICAL: Patient is alert and oriented x 3. Motor and sensory are also intact. Cranial nerves II through XII grossly intact. Symmetrical smile. Normal speech, normal gait. PSYCH: Normal mood, normal affect. SKIN: Warm, Dry, normal turgor, no rashes or lesions noted. (Jennifer Diego) Course Vital Signs 11/07/20 17:43 Temperature 98.4 F Pulse Rate 88 Respiratory 16 Rate Blood Pressure 122/65 O2 Sat by Pulse 99 Oximetry Medical Decision Making - Lab Data Result diagrams: 11/07/20 18:46 11/07/20 18:46 <Jennifer Diego - Last Filed: 11/07/20 19:29> - Lab Data Result diagrams: 11/07/20 18:46 11/07/20 18:46 <Manpreet Morley - Last Filed: 11/07/20 20:13> - Lab Data Lab Results 11/07/20 11/07/20 11/07/20 Range/Units 18:42 18:46 18:46 WBC 8.2 (3.8-10.6) k/uL RBC 4.13 (3.80-5.40) m/uL Hgb 12.8 (11.4-16.0) gm/dL Hct 37.6 (34.0-46.0) % MCV 90.9 (80.0-100.0) fL MCH 31.1 (25.0-35.0) pg MCHC 34.2 (31.0-37.0) g/dL RDW 11.8 (11.5-15.5) % Plt Count 291 (150-450) k/uL MPV 6.6 Neutrophils % 68 % Lymphocytes % 22 % Monocytes % 6 % Eosinophils % 2 % Basophils % 0 % Neutrophils # 5.6 (1.3-7.7) k/uL Lymphocytes # 1.8 (1.0-4.8) k/uL Monocytes # 0.5 (0-1.0) k/uL Eosinophils # 0.2 (0-0.7) k/uL Basophils # 0.0 (0-0.2) k/uL Sodium 138 (137-145) mmol/L Potassium 4.0 (3.5-5.1) mmol/L Chloride 101 (98-107) mmol/L Carbon Dioxide 28 (22-30) mmol/L Anion Gap 9 mmol/L BUN 6 L (7-17) mg/dL Creatinine 0.52 (0.52-1.04) mg/dL Est GFR (CKD-EPI)AfAm >90 (>60 ml/min/1.73 sqM) Est GFR (CKD-EPI)NonAf >90 (>60 ml/min/1.73 sqM) Glucose 192 H (74-99) mg/dL Calcium 9.1 (8.4-10.2) mg/dL Total Bilirubin 0.2 (0.2-1.3) mg/dL AST 20 (14-36) U/L ALT 10 (4-34) U/L Alkaline Phosphatase 88 (38-126) U/L Total Protein 6.9 (6.3-8.2) g/dL Albumin 4.2 (3.5-5.0) g/dL HCG, Quant 6858.2 mIU/mL Urine Color Red Urine Appearance Bloody H (Clear) Urine RBC >182 H (0-5) /hpf Urine WBC 16 H (0-5) /hpf Disposition <Jennifer Diego - Last Filed: 11/07/20 19:29> Is patient prescribed a controlled substance at d/c from ED?: No <Manpreet Morley - Last Filed: 11/07/20 20:13> Clinical Impression: Complete Disposition: HOME SELF-CARE Condition: Good Instructions (If sedation given, give patient instructions): Miscarriage (ED) Referrals: Dallas Mark [Primary Care Provider] - 1-2 days
[2020-11-07 19:43] LABS: HCG,Quantitative Serum 6858.2 mIU/mL
--- NOTE | 2020-11-07 19:59 | US ---
EXAMINATION TYPE: Transabdominal DATE OF EXAM: 11/07/2020 7:25 PM COMPARISON: US CLINICAL HISTORY: bleeding/pain, likely miscarriage. Bleeding, pain. Hx LEEP. . EXAM PERFORMED: Transabdominal (TA). Confirmed no TV with Brandie ROBERT) after TA scan. EXAM MEASUREMENTS: GESTATIONAL AGE / DATING Physician Established: (9 weeks/3 days) EDC: 06/09/2021 Dates by LMP: Unknown. Dates by First Scan: (8 weeks/5 days) EDC: 06/14/2021 Dates by Current Scan for: No IUP seen at this time. MATERNAL ANATOMY Slightly limited due to undistended bladder. Uterus: 11.9 x 6.1 x 6.8 cm. Slightly enlarged. Endometrium measures 0.6 cm. Right Ovary: Not seen. Left Ovary: 3.6 x 1.9 x 1.4 cm. Appears to be wnl. Post CDS / Adnexa: Fluid seen in CDS. Presence of free fluid: Yes, in CDS measurin.6 x 3.2 x 1.1 cm. Presence of corpus luteal cyst: No GESTATION / SURVEY CRL: Not seen. MSD: Not seen. IUP: No IUP seen at this time. Date of LMP: Unknown. Beta HcG (if available): Not available. IMPRESSION: Empty uterus. No adnexal mass. Very small amount of free fluid in the pelvis.
[2020-11-07 20:33] VITALS: BP 121/74; PULSE 71; RESP 15
== END 2020-11-07 20:34 | disposition home or self-care (01) ==
LOC: EC 17:40
DX: O03.9 Complete or unspecified spontaneous abortion without complication (principal); O24.119 Pre-existing type 2 diabetes mellitus, in pregnancy, unspecified trimester; E11.9 Type 2 diabetes mellitus without complications; Z3A.00 Weeks of gestation of pregnancy not specified; Z79.84 Long term (current) use of oral hypoglycemic drugs
CPT/HCPCS: 36415; 76801; 80053; 81001; 84702; 85025; 87086; 99284

== ENCOUNTER 2021-04-07 19:48 | Emergency (ER) | payer OTHER ==
[2021-04-07 20:06] VITALS: BP 128/74; PULSE 96; RESP 20; TEMP 98.7
--- NOTE | 2021-04-07 20:28 | ED ---
Abdominal Pain HPI - General Chief Complaint: Abdominal Pain Stated Complaint: 15 wks preg, Abd Pain, Spotting Time Seen by Provider: 04/07/21 19:57 Source: patient Mode of arrival: ambulatory Limitations: no limitations - History of Present Illness Initial Comments: 36 year-old female patient presents to the emergency department for evaluation of lower abdominal pain and spotting. Patient is 16 weeks , A1. States about an hour ago she started having a sharp pain to the right lower abdomen. States that she went to the bathroom shortly after and noticed pink on the toilet paper. States that it is now a brown color. She has not passed any blood clots. Denies having to wear a pad. Denies any urinary urgency or frequency. Denies constipation or diarrhea. Denies any nausea or vomiting. States that she has not had any complications throughout this . Patient denies any recent rash, cough, shortness of breath, chest pain, back pain, numbness, tingling, dizziness, weakness, headache, visual changes, or any other complaints. - Related Data Home Medications Medication Instructions Recorded Confirmed Aspirin EC [Ecotrin Low Dose] 81 mg PO DAILY 04/07/21 04/07/21 Folic Acid 0.8 mg PO DAILY 04/07/21 04/07/21 INSULIN ASPART (NovoLOG) [NovoLOG 15 unit SQ BID 04/07/21 04/07/21 (formulary)] Insulin NPH Human Isophane 10 units SQ HS 04/07/21 04/07/21 [NovoLIN N] Insulin NPH Human Isophane 25 units SQ DAILY 04/07/21 04/07/21 [NovoLIN N] Gummie 2 tab PO DAILY 04/07/21 04/07/21 Allergies Allergy/AdvReac Type Severity Reaction Status Date / Time grass pollen Allergy Unknown Verified 04/07/21 21:56 Penicillins Allergy Anaphylaxis Verified 04/07/21 21:56 pollen extracts Allergy Unknown Verified 04/07/21 21:56 Review of Systems ROS Statement: Those systems with pertinent positive or pertinent negative responses have been documented in the HPI. ROS Other: All systems not noted in ROS Statement are negative. Past Medical History Past Medical History: Diabetes Mellitus Additional Past Medical History / Comment(s): Type 2 diabetes History of Any Multi-Drug Resistant Organisms: None Reported Past Surgical History: Cholecystectomy Additional Past Surgical History / Comment(s): Eye surgery for strabismus. LEEP excision of the cervix (after the delivery of her last baby.) Patient's had 2 previous term deliveries. Past Anesthesia/Blood Transfusion Reactions: No Reported Reaction Past Psychological History: No Psychological Hx Reported Smoking Status: Never smoker Past Alcohol Use History: Occasional Past Drug Use History: None Reported - Past Family History Father Family Medical History: Cancer Additional Family Medical History / Comment(s): COLON Mother Family Medical History: Cancer, Diabetes Mellitus Additional Family Medical History / Comment(s): BREAST AND UTERINE CA General Exam Limitations: no limitations General appearance: alert, in no apparent distress, other (This is a well- developed, well-nourished adult female patient in no acute distress.) ENT exam: Present: normal exam, normal oropharynx, mucous membranes moist Respiratory exam: Present: normal lung sounds bilaterally. Absent: respiratory distress, wheezes, rales, rhonchi, stridor Cardiovascular Exam: Present: regular rate, normal rhythm, normal heart sounds. Absent: systolic murmur, diastolic murmur, rubs, gallop, clicks GI/Abdominal exam: Present: soft, normal bowel sounds, other (Gravid abdomen). Absent: distended, tenderness, guarding, rebound, rigid Neurological exam: Present: alert, oriented X3, CN II-XII intact Psychiatric exam: Present: normal affect, normal mood Skin exam: Present: warm, dry, intact, normal color. Absent: rash Course Vital Signs 04/07/21 20:03 Temperature 98.7 F Pulse Rate 96 Respiratory 20 Rate Blood Pressure 128/74 O2 Sat by Pulse 99 Oximetry Medical Decision Making - Medical Decision Making 36-year-old female patient presents to the emergency department today for evaluation of spotting and lower abdominal pressure. She is approximately 16 weeks . Physical examination is unremarkable. She has normal vital signs. Urinalysis was obtained and showed no evidence for infection. Ultrasound was obtained and showed a viable intrauterine measuring 15 weeks 4 days with a possible small retroplacental bleed. I did discuss findings results with her. She is instructed to follow-up with her PUBLIC SAFETY OFFICER for recheck as soon as possible. She is to maintain pelvic rest until cleared by her OB. Return parameters were discussed in detail. She verbalizes understanding and agrees with this plan. Case discussed with my attending Dr. Rose. - Lab Data Lab Results 04/07/21 04/07/21 Range/Units 20:39 21:47 POC Glucose (mg/dL) 153 H (75-99) mg/dL POC Glu Electrical Manager ID Saeed Coombs Urine Color Yellow Urine Appearance Clear (Clear) Urine pH 5.5 (5.0-8.0) Ur Specific [place] 1.040 H (1.001-1.035) Urine Protein Trace H (Negative) Urine Glucose (UA) 4+ H (Negative) Urine Ketones 1+ H (Negative) Urine Blood Negative (Negative) Urine Nitrite Negative (Negative) Urine Bilirubin Negative (Negative) Urine Urobilinogen <2.0 (<2.0) mg/dL Ur Leukocyte Esterase Negative (Negative) - Radiology Data Radiology results: report reviewed, image reviewed Ultrasound of the fetus was obtained. Report was reviewed in its entirety. Impression by Dr. Santiago shows 15 weeks 4 days fetus. Heart rate 166. Possible small retroplacental bleed. Disposition Clinical Impression: Vaginal bleeding during Disposition: HOME SELF-CARE Condition: Good Instructions (If sedation given, give patient instructions): Abdominal Pain in (ED) Additional Instructions: Follow-up with your PUBLIC SAFETY OFFICER for recheck as soon as possible. Return for any new, worsening, or concerning symptoms. Is patient prescribed a controlled substance at d/c from ED?: No Referrals: Dallas Mark [Primary Care Provider] - 1-2 days Time of Disposition: 22:18
[2021-04-07 20:58] LABS: Appearance,Urine Clear (Clear); Bilirubin,Urine Negative (Negative); Blood,Urine Negative (Negative); Color,Urine Yellow; Glucose,Urine (UA) 4+ (Negative); Ketones,Urine 1+ (Negative); Leukocyte Esterase,Urine Negative (Negative); Nitrite,Urine Negative (Negative); PH, Urine 5.5 (5.0-8.0); Protein,Urine Trace (Negative); Urobilinogen,Urine <2.0 mg/dL (<2.0)
--- NOTE | 2021-04-07 21:39 | US ---
EXAMINATION TYPE: US OB >= 14 wk fetus DATE OF EXAM: 04/07/2021 COMPARISON: None CLINICAL HISTORY: Lower abd painPatient stated has vaginal spotting today; diabetic; TECHNIQUE: Transabdominal (TA) GESTATIONAL AGE / DATING Physician Established: (15 weeks/0 days) EDC: 09/29/2021 Dates by LMP: (15 weeks/0 days) EDC: 09/29/2021 Dates by First Scan: today is first scan Dates by Current Scan: (15 weeks/4 days) EDC: 09/25/2021 Beta HCG (if available): NA at time of US SURVEY IUP: Single PLACENTA: Anterior ; oval, irregular, retroplacental hypoechoic area is noted mid placenta and may be small retroplacental bleed = 1.3 x 1.4 x 0.8cm. PREVIA: No Previa JERILYN: 10.7 cm Normal CERVICAL LENGTH (transabdominal: norm > 3.0cm): 3.15 cm BIOMETRY PRESENTATION: Breech LIE: Longitudinal BPD: 3.09 cm 15 weeks / 5 days HC: 11.5 cm 15 weeks / 4 days AC: 8.6 cm 14 weeks / 6 days FL: 1.72 cm 15 weeks / 1 day ESTIMATED WEIGHT IN GRAMS: 113.7 grams ESTIMATED WEIGHT IN LBS/OZ: 0 lbs. 4 oz. WEIGHT PERCENTAGE BASED ON ESTABLISHED DATES: 41.5% HC/AC: 1.34 Normal FL/AC: 19.95 Normal HEART RATE: 166 bpm RHYTHM: Normal Single, live IUP,15 weeks/4 days, EDC: 09/25/2021 ; HR 166bpm; possible small retroplacental bleed. IMPRESSION: Ultrasound gestational age is 15 weeks and 4 days.
[2021-04-07 21:48] LABS: Glucose,Whole Blood 153 mg/dL (75-99)
== END 2021-04-07 22:39 | disposition home or self-care (01) ==
LOC: EC 19:48
DX: O26.852 Spotting complicating pregnancy, second trimester (principal); O26.892 Other specified pregnancy related conditions, second trimester; O24.112 Pre-existing type 2 diabetes mellitus, in pregnancy, second trimester; E11.9 Type 2 diabetes mellitus without complications; Z3A.15 15 weeks gestation of pregnancy; Z90.49 Acquired absence of other specified parts of digestive tract; Z91.09 Other allergy status, other than to drugs and biological substances; Z88.0 Allergy status to penicillin; Z79.4 Long term (current) use of insulin
CPT/HCPCS: 36415; 76805; 81003; 99284

== ENCOUNTER 2021-06-28 23:49 | Outpatient (CLI) | payer OTHER ==
[2021-06-29 02:44] VITALS: BP 110/59; PULSE 90; RESP 16; TEMP 96.6
--- NOTE | 2021-07-06 14:09 | P.MSEPDOC ---
Presenting Problems - Arrival Data Date of Arrival on Unit: 06/28/21 Time of Arrival on Unit: 23:49 Mode of Transport: Ambulatory - Complaint OB-Reason for Admission/Chief Complaint: Vaginal Bleeding Comment: Pt from [facility], states bleeding when she wiped after going to the bathroom that started around 2200. Wore a pad in, no blood noted on pad. 5 Medical History - Information : 5 Para: 2 Term: 2 : 0 Abortions: Spontaneous or Elective: 2 Number of Living Children: 2 - Gestational Age Gestational Age by SPARKLE (wks/days): 26 Weeks and 6 Days Review of Systems - Review of Systems Constitutional: No problems Breast: No problems ENT: No problems Cardiovascular: No problems Respiratory: No problems Gastrointestinal: No problems Genitourinary: No problems Musculoskeletal: No problems Neurological: No problems Skin: No problems Vital Signs - Temperature Temperature: 96.6 F Temperature Source: Temporal Artery Scan - Pulse Right Brachial Pulse Rate: 90 Pulse Assessment Method: Automatic Cuff - Respirations Respiratory Rate: 16 Oxygen Delivery Method: Room Air O2 Sat by Pulse Oximetry: 98 - Blood Pressure Right Arm Blood Pressure: 110/59 Blood Pressure Mean: 76 Blood Pressure Source: Automatic Cuff Medical Screen Scoring - Cervical Exam Dilation (cm): 0 Effacement (%): 0 Station: -3 Membranes: Intact - Uterine Contractions Frequency From (mins): 0 Frequency To (mins): 0 Duration From (seconds): 0 Duration To (seconds): 0 Intensity: Absent Resting: Soft to palpation - Assessment - Baby A Baseline FHR: 135 Heart Rate - NICHD Category: Category I (Normal) Physician Notification - Physician Notified Physician Notified Date: 06/29/21 Physician Notified Time: 00:23 Physician: Kenney Umanzor New Order Received: Yes - Notification Comment Comment: Cervical exam, closed/thick/high, monitor for 2-3 hours. After 2 hours pt had a scant amount of dark brown blood when going to the bathroom, no contractions or pain. D/c home, call her physician in the morning for appointment. Maternal Triage Index - Maternal Triage Index Presenting for scheduled procedure w/no complaint: No - Stat/Priority 1 Stat Priority 1: No - Urgent/Priority 2 Urgent Priority 2: Yes Provider Notified: Kenney Umanzor Provider Notified Time: 00:23 Criteria Met for Priority 2: Pt spotting after going to the bathroom - Prompt/Priority 3 Prompt Priority 3: No - Non-Urgent/Priority 4 Non-Urgent Priority 4: No - Scheduled/Requesting Priority 5 Scheduled/Requesting Priority 5: No Disposition - Disposition OB Disposition: Discharge to home, Written follow up instructions reviewed Discharge Date: 06/29/21 Discharge Time: 02:30 I agree with the RN Medical Screening Exam: Yes Physician's MSE Comment: I have neither seen nor examined the patient. Case reviewed; plan agreed upon as documented in EMR&OBIX.: Yes Diagnosis: RELATED CONDITIONS, UNSPECIFIED, SECOND TRIMESTER
== END 2021-06-29 02:30 | disposition home or self-care (01) ==
LOC: FBPOP 23:49
PROVIDERS: ATTEND Obstetrics & Gynecology
DX: O46.92 Antepartum hemorrhage, unspecified, second trimester (principal); Z3A.26 26 weeks gestation of pregnancy; Z88.0 Allergy status to penicillin; Z91.09 Other allergy status, other than to drugs and biological substances
CPT/HCPCS: 99213

== ENCOUNTER 2021-09-05 17:29 | Inpatient (IN) | payer OTHER ==
[2021-09-05] MEDS ORDERED: SODIUM CHLORIDE 0.9% 1,000 ML IV ONE (18:02)
[2021-09-05] MEDS ORDERED: ACETAMINOPHEN TAB 325 MG TAB PO STA (18:03)
[2021-09-05] MEDS ORDERED: SODIUM CHLORIDE 0.9% 1,000 ML IV SCH (18:15)
[2021-09-05 18:42] LABS: Glucose,Whole Blood 112 mg/dL (75-99)
[2021-09-05 18:59] LABS: Basophils % (A) 0 %; Eosinophils # (A) 0.2 k/uL (0-0.7); Eosinophils % (A) 1 %; HCT 32.9 % (34.0-46.0); HGB 10.8 gm/dL (11.4-16.0); Hypochromasia Slight; Lymphocytes # (A) 0.5 k/uL (1.0-4.8); Lymphocytes % (A) 4 %; MCH 29.6 pg (25.0-35.0); MCHC 32.8 g/dL (31.0-37.0); MCV 90.2 fL (80.0-100.0); Mean Platelet Volume 7.8; Monocytes % (A) 7 %; Neutrophils # (A) 12.2 k/uL (1.3-7.7); Neutrophils % (A) 87 %; Platelet Count 257 k/uL (150-450); RBC 3.65 m/uL (3.80-5.40); RDW 15.5 % (11.5-15.5); WBC 14.1 k/uL (3.8-10.6)
[2021-09-05 19:05] LABS: ALT 19 U/L (4-34); AST 44 U/L (14-36); African American GFR (CKD) >90 (>60 ml/min/1.73 sqM); Albumin 3.1 g/dL (3.5-5.0); Alkaline Phosphatase 119 U/L (38-126); Anion Gap 9 mmol/L; Blood Urea Nitrogen 4 mg/dL (7-17); Calcium 9.3 mg/dL (8.4-10.2); Carbon Dioxide 18 mmol/L (22-30); Chloride 106 mmol/L (98-107); Glucose 102 mg/dL (74-99); Non-African American GFR(CKD) >90 (>60 ml/min/1.73 sqM); Potassium 3.9 mmol/L (3.5-5.1); Sodium 133 mmol/L (137-145); Total Bilirubin 0.6 mg/dL (0.2-1.3); Total Protein 6.1 g/dL (6.3-8.2)
[2021-09-05 20:27] LABS: Appearance,Urine Cloudy (Clear); Bacteria,Urine Rare /hpf; Bilirubin,Urine Negative (Negative); Blood,Urine Moderate (Negative); Color,Urine Yellow; Glucose,Urine (UA) Negative (Negative); Ketones,Urine 1+ (Negative); Leukocyte Esterase,Urine Large (Negative); Mucus,Urine Many /hpf; Nitrite,Urine Negative (Negative); Protein,Urine 1+ (Negative); RBC,Urine 4 /hpf (0-5); Specific Gravity,Urine 1.016 (1.001-1.035); Squamous Epithelial Cell,Urine 11 /hpf (0-4); Urobilinogen,Urine <2.0 mg/dL (<2.0); WBC,Urine 35 /hpf (0-5)
[2021-09-05] MEDS ORDERED: CLINDAMYCIN 900 MG in DEXTROSE 5% IN WATER 50 ML IVPB STA ×2 (21:27)
[2021-09-05] MEDS ORDERED: OXYTOCIN 10 UNIT/ML 1 ML VIAL IM PRN (21:27)
[2021-09-05] MEDS ORDERED: TERBUTALINE 1 MG/ML VIAL SQ PRN (21:27)
[2021-09-05] MEDS ORDERED: CARBOPROST TROMETHAMINE 250 MCG/ML 1 ML AMP IM PRN (21:27)
[2021-09-05] MEDS ORDERED: METHYLERGONOVINE 0.2 MG/ML 1 ML AMP IM PRN (21:27)
[2021-09-05] MEDS ORDERED: LIDOCAINE 1% (PF) 10 MG/ML (30 ML SDV) SQ PRN (21:27)
[2021-09-05] MEDS ORDERED: LACTATED RINGERS 1,000 ML IV SCH (21:30)
[2021-09-05] MEDS ORDERED: OXYTOCIN 30 UNITS/500 ML NS 30 UNIT in SALINE 1 500ML.BAG IV SCH ×2 (21:30→23:00)
[2021-09-05 21:37] LABS: Glucose,Whole Blood 97 mg/dL (75-99)
--- NOTE | 2021-09-05 22:17 | P.HPOB ---
History of Present Illness H&P Date: 09/05/21 Chief Complaint: labor 36 year old at 36 weeks 4 days presents in labor. Her cervix changed from 3cm to 5/90/-2. She is pattie every few minutes. heart tones 145 with moderate variability and reactive. The heart tones were 160-170 but the baseline came down with IV fluids. Review of Systems All systems: negative Constitutional: Denies chills, Denies fever Eyes: denies blurred vision, denies pain Ears, nose, mouth and throat: Denies headache, Denies sore throat Cardiovascular: Denies chest pain, Denies shortness of breath Respiratory: Denies cough Gastrointestinal: Denies abdominal pain, Denies diarrhea, Denies nausea, Denies vomiting Genitourinary: Denies dysuria, Denies hematuria Musculoskeletal: Denies myalgias Integumentary: Denies pruritus, Denies rash Neurological: Denies numbness, Denies weakness Psychiatric: Denies anxiety, Denies depression Endocrine: Denies fatigue, Denies weight change Past Medical History Past Medical History: Diabetes Mellitus Additional Past Medical History / Comment(s): Type 2 diabetes. OB history: She has had 3 previous vaginal deliveries. This is her fourth and she had care with Dr Rose. She is diabetic and on insulin but was not following up with [facility] as she was asked to. Her sugars were not well controlled and baby was over 7 pounds 3 weeks ago as well as polyhydramnios. History of Any Multi-Drug Resistant Organisms: None Reported Past Surgical History: Cholecystectomy Additional Past Surgical History / Comment(s): Eye surgery for strabismus. LEEP excision of the cervix (after the delivery of her last baby.) Patient's had 2 previous term deliveries. Past Anesthesia/Blood Transfusion Reactions: No Reported Reaction Smoking Status: Never smoker - Past Family History Father Family Medical History: Cancer Additional Family Medical History / Comment(s): COLON Mother Family Medical History: Cancer, Diabetes Mellitus Additional Family Medical History / Comment(s): BREAST AND UTERINE CA Medications and Allergies Home Medications Medication Instructions Recorded Confirmed Type Aspirin EC [Ecotrin Low Dose] 81 mg PO DAILY 04/07/21 09/05/21 History INSULIN ASPART (NovoLOG) [NovoLOG 15 unit SQ BID 04/07/21 09/05/21 History (formulary)] Insulin NPH Human Isophane 10 units SQ HS 04/07/21 09/05/21 History [NovoLIN N] Insulin NPH Human Isophane 25 units SQ DAILY 04/07/21 09/05/21 History [NovoLIN N] Gummie 2 tab PO DAILY 04/07/21 09/05/21 History Allergies Allergy/AdvReac Type Severity Reaction Status Date / Time grass pollen Allergy Unknown Verified 09/05/21 18:00 Penicillins Allergy Anaphylaxis Verified 09/05/21 18:00 pollen extracts Allergy Unknown Verified 09/05/21 18:00 Exam Osteopathic Statement: *. No significant issues noted on an osteopathic structural exam other than those noted in the History and Physical/Consult. Intake and Output 09/05/21 09/05/21 09/05/21 06:59 14:59 22:59 Other: Weight 99.79 kg Heart: Regular rate and rhythm Lungs: Clear to auscultation bilaterally Abdomen: Soft, nontender Extremities: Negative Homans sign Results Result Diagrams: 09/05/21 18:35 09/05/21 18:35 Abnormal Lab Results - Last 24 Hours (Table) 09/05/21 09/05/21 09/05/21 Range/Units 18:35 18:35 18:41 WBC 14.1 H (3.8-10.6) k/uL RBC 3.65 L (3.80-5.40) m/uL Hgb 10.8 L (11.4-16.0) gm/dL Hct 32.9 L (34.0-46.0) % Neutrophils # 12.2 H (1.3-7.7) k/uL Lymphocytes # 0.5 L (1.0-4.8) k/uL Sodium 133 L (137-145) mmol/L Carbon Dioxide 18 L (22-30) mmol/L BUN 4 L (7-17) mg/dL Glucose 102 H (74-99) mg/dL POC Glucose (mg/dL) 112 H (75-99) mg/dL AST 44 H (14-36) U/L Total Protein 6.1 L (6.3-8.2) g/dL Albumin 3.1 L (3.5-5.0) g/dL Urine Appearance (Clear) Urine Protein (Negative) Urine Ketones (Negative) Urine Blood (Negative) Ur Leukocyte Esterase (Negative) Urine WBC (0-5) /hpf Urine WBC Clumps (None) /hpf Ur Squamous Epith Cells (0-4) /hpf Urine Bacteria (None) /hpf Urine Mucus (None) /hpf 09/05/21 Range/Units 20:11 WBC (3.8-10.6) k/uL RBC (3.80-5.40) m/uL Hgb (11.4-16.0) gm/dL Hct (34.0-46.0) % Neutrophils # (1.3-7.7) k/uL Lymphocytes # (1.0-4.8) k/uL Sodium (137-145) mmol/L Carbon Dioxide (22-30) mmol/L BUN (7-17) mg/dL Glucose (74-99) mg/dL POC Glucose (mg/dL) (75-99) mg/dL AST (14-36) U/L Total Protein (6.3-8.2) g/dL Albumin (3.5-5.0) g/dL Urine Appearance Cloudy H (Clear) Urine Protein 1+ H (Negative) Urine Ketones 1+ H (Negative) Urine Blood Moderate H (Negative) Ur Leukocyte Esterase Large H (Negative) Urine WBC 35 H (0-5) /hpf Urine WBC Clumps Occasional H (None) /hpf Ur Squamous Epith Cells 11 H (0-4) /hpf Urine Bacteria Rare H (None) /hpf Urine Mucus Many H (None) /hpf Assessment and Plan (1) Normal labor Current Visit: No Status: Acute Code(s): O80 - ENCOUNTER FOR FULL-TERM UNCOMPLICATED DELIVERY SNOMED Code(s): 79038790 (2) Type 2 diabetes mellitus affecting in third trimester, antepartum Current Visit: Yes Status: Acute Code(s): O24.113 - PRE-EXISTING TYPE 2 DIABETES, IN , THIRD TRIMESTER SNOMED Code(s): 638317337 (3) Polyhydramnios Current Visit: Yes Status: Acute Code(s): O40.9XX0 - POLYHYDRAMNIOS, UNSP TRIMESTER, NOT APPLICABLE OR UNSP SNOMED Code(s): 53005600 Plan: 1. admit to [facility] 2. expectant management 3. anticipate normal vaginal delivery
[2021-09-05 22:28] LABS: Glucose,Whole Blood 108 mg/dL (75-99)
[2021-09-05] MEDS ORDERED: diphenhydrAMINE 50 MG/ML 1 ML VIAL IVP PRN ×2 (23:00)
[2021-09-05] MEDS ORDERED: ACETAMINOPHEN TAB 325 MG TAB PO PRN (23:00)
[2021-09-05] MEDS ORDERED: diphenhydrAMINE 25 MG CAP PO PRN (23:00)
[2021-09-05] MEDS ORDERED: HYDROCORTISONE 2.5% RECTAL CREAM 30 GM TUBE RECTAL PRN (23:00)
[2021-09-05] MEDS ORDERED: LANOLIN CREAM 5 GM TUBE TOPICAL PRN (23:00)
[2021-09-05] MEDS ORDERED: diphenhydrAMINE 50 MG CAP PO PRN (23:00)
[2021-09-05] MEDS ORDERED: SIMETHICONE 80 MG CHEWABLE PO PRN (23:00)
[2021-09-05] MEDS ORDERED: ZOLPIDEM 5 MG TAB PO PRN (23:00)
[2021-09-05] MEDS ORDERED: BENZOCAINE/MENTHOL SPRAY 1 GM/SPRAY AEROSOL TOPICAL PRN (23:00)
[2021-09-05] MEDS ORDERED: Rhogam IMMUNE GLOBULIN 1,500 UNIT/1 ML IM ONE (23:00)
--- NOTE | 2021-09-05 23:04 | P.PROBDLV ---
Vaginal Delivery Note - . Vaginal Delivery Note: 36 year old at 36 weeks 4 days presents in labor. Her cervix changed from 3cm to 5/90/-2. She is pattie every few minutes. heart tones 145 with moderate variability and reactive. The heart tones were 160-170 but the baseline came down with IV fluids. Blood sugar 97. Patient was put in the family suite and amniotomy was performed at 2138. Clear fluid noted. She was quite uncomfortable and making some cervical change completely dilated by 2243. She pushed, delivered a viable female over intact perineum at 2245. Head delivered OA, nuchal cord 1 delivered through. Cord clamped and cut placed on mother's abdomen. Apgars 8, 9, weight 7 lbs. 11 oz. Placenta delivered spontaneously, intact with three-vessel cord at 224. Vagina, cervix, and perineum were inspected. Second-degree midline laceration was repaired with 3-0 Vicryl. Estimated blood loss 200 mL. Mother and baby in stable condition.
[2021-09-05 23:13] LABS: Glucose,Whole Blood 114 mg/dL (75-99)
[2021-09-06] MEDS: IBUPROFEN 600 MG TAB PO PRN ×3 (00:43→18:14)
[2021-09-06] MEDS ORDERED: CLINDAMYCIN 900 MG in DEXTROSE 5% IN WATER 50 ML IVPB SCH ×2 (05:30)
[2021-09-06 06:20] LABS: Basophils % (A) 0 %; Eosinophils % (A) 0 %; HCT 24.8 % (34.0-46.0); Hypochromasia Slight; Lymphocytes # (A) 1.3 k/uL (1.0-4.8); Lymphocytes % (A) 10 %; MCH 28.4 pg (25.0-35.0); MCHC 31.2 g/dL (31.0-37.0); MCV 90.8 fL (80.0-100.0); Mean Platelet Volume 8.1; Monocytes # (A) 1.1 k/uL (0-1.0); Monocytes % (A) 9 %; Neutrophils # (A) 10.1 k/uL (1.3-7.7); Neutrophils % (A) 79 %; Platelet Count 199 k/uL (150-450); RBC 2.73 m/uL (3.80-5.40); WBC 12.7 k/uL (3.8-10.6)
[2021-09-06 06:24] LABS: HGB 7.8 gm/dL (11.4-16.0)
[2021-09-06 07:34] LABS: Glucose,Whole Blood 156 mg/dL (75-99)
--- NOTE | 2021-09-06 07:48 | P.PNOBGVD ---
Subjective - Subjective Principal diagnosis: S/P NVD PPD #1 Interval history: Patient seen and examined. Denies nausea, vomiting, chest pain, shortness of breath or any calf pain. Her hemoglobin did drop from 10-7 simple watch for signs of anemia today. We did discuss that if she is symptomatic she may need blood transfusion. Patient reports: Reports appetite normal, Reports voiding normally, Reports pain well controlled, Reports ambulating normally [place]: doing well Objective - Latest Vital Signs Latest vital signs: Vital Signs Temp Pulse Resp BP 09/06/21 03:48 97.8 F 83 16 102/55 09/06/21 01:02 105 H 16 122/62 09/06/21 00:31 93 16 132/76 09/06/21 00:01 95 16 133/69 09/05/21 23:47 89 16 134/63 09/05/21 23:32 96 16 147/69 09/05/21 23:16 99 16 153/67 09/05/21 23:01 97.4 F L 87 16 159/64 09/05/21 17:59 100 F H 137 H 16 134/79 Intake and Output 09/05/21 09/06/21 09/06/21 22:59 06:59 14:59 Intake Total 334 Output Total 555 Balance -221 Intake: Intake, IV Titration 334 Amount Oxytocin 30 Units/500 ml 334 Ns 30 unit In Saline 1 500ml.bag @ Per Protocol IV .Q0M [facility] Rx#:[id number] Output: Estimated Blood Loss 250 Output, Quantitative 305 Blood Loss Other: # Voids 1 1 Weight 99.79 kg - Exam Lungs: bilateral: normal Chest: Normal S1, Normal S2 Extremities: Present: normal Abdomen: Present: normal appearance, soft Uterus: Present: normal, firm - Labs Labs: Abnormal Lab Results - Last 24 Hours (Table) 09/05/21 09/05/21 09/05/21 Range/Units 18:35 18:35 18:41 WBC 14.1 H (3.8-10.6) k/uL RBC 3.65 L (3.80-5.40) m/uL Hgb 10.8 L (11.4-16.0) gm/dL Hct 32.9 L (34.0-46.0) % Neutrophils # 12.2 H (1.3-7.7) k/uL Lymphocytes # 0.5 L (1.0-4.8) k/uL Monocytes # (0-1.0) k/uL Sodium 133 L (137-145) mmol/L Carbon Dioxide 18 L (22-30) mmol/L BUN 4 L (7-17) mg/dL Glucose 102 H (74-99) mg/dL POC Glucose (mg/dL) 112 H (75-99) mg/dL AST 44 H (14-36) U/L Total Protein 6.1 L (6.3-8.2) g/dL Albumin 3.1 L (3.5-5.0) g/dL Urine Appearance (Clear) Urine Protein (Negative) Urine Ketones (Negative) Urine Blood (Negative) Ur Leukocyte Esterase (Negative) Urine WBC (0-5) /hpf Urine WBC Clumps (None) /hpf Ur Squamous Epith Cells (0-4) /hpf Urine Bacteria (None) /hpf Urine Mucus (None) /hpf 09/05/21 09/05/21 09/05/21 Range/Units 20:11 22:26 23:12 WBC (3.8-10.6) k/uL RBC (3.80-5.40) m/uL Hgb (11.4-16.0) gm/dL Hct (34.0-46.0) % Neutrophils # (1.3-7.7) k/uL Lymphocytes # (1.0-4.8) k/uL Monocytes # (0-1.0) k/uL Sodium (137-145) mmol/L Carbon Dioxide (22-30) mmol/L BUN (7-17) mg/dL Glucose (74-99) mg/dL POC Glucose (mg/dL) 108 H 114 H (75-99) mg/dL AST (14-36) U/L Total Protein (6.3-8.2) g/dL Albumin (3.5-5.0) g/dL Urine Appearance Cloudy H (Clear) Urine Protein 1+ H (Negative) Urine Ketones 1+ H (Negative) Urine Blood Moderate H (Negative) Ur Leukocyte Esterase Large H (Negative) Urine WBC 35 H (0-5) /hpf Urine WBC Clumps Occasional H (None) /hpf Ur Squamous Epith Cells 11 H (0-4) /hpf Urine Bacteria Rare H (None) /hpf Urine Mucus Many H (None) /hpf 09/06/21 09/06/21 Range/Units 05:50 07:26 WBC 12.7 H (3.8-10.6) k/uL RBC 2.73 L (3.80-5.40) m/uL Hgb 7.8 L D (11.4-16.0) gm/dL Hct 24.8 L (34.0-46.0) % Neutrophils # 10.1 H (1.3-7.7) k/uL Lymphocytes # (1.0-4.8) k/uL Monocytes # 1.1 H (0-1.0) k/uL Sodium (137-145) mmol/L Carbon Dioxide (22-30) mmol/L BUN (7-17) mg/dL Glucose (74-99) mg/dL POC Glucose (mg/dL) 156 H (75-99) mg/dL AST (14-36) U/L Total Protein (6.3-8.2) g/dL Albumin (3.5-5.0) g/dL Urine Appearance (Clear) Urine Protein (Negative) Urine Ketones (Negative) Urine Blood (Negative) Ur Leukocyte Esterase (Negative) Urine WBC (0-5) /hpf Urine WBC Clumps (None) /hpf Ur Squamous Epith Cells (0-4) /hpf Urine Bacteria (None) /hpf Urine Mucus (None) /hpf Assessment and Plan (1) Normal labor Current Visit: No Status: Resolved Code(s): O80 - ENCOUNTER FOR FULL-TERM UNCOMPLICATED DELIVERY SNOMED Code(s): 15327202 (2) Type 2 diabetes mellitus affecting in third trimester, antepartum Current Visit: Yes Status: Resolved Code(s): O24.113 - PRE-EXISTING TYPE 2 DIABETES, IN , THIRD TRIMESTER SNOMED Code(s): 009445679 (3) Polyhydramnios Current Visit: Yes Status: Resolved Code(s): O40.9XX0 - POLYHYDRAMNIOS, UNSP TRIMESTER, NOT APPLICABLE OR UNSP SNOMED Code(s): 02376713 (4) Type 2 diabetes mellitus Current Visit: Yes Status: Acute Code(s): E11.9 - TYPE 2 DIABETES MELLITUS WITHOUT COMPLICATIONS SNOMED Code(s): 68250317 (5) Acute blood loss anemia Current Visit: Yes Status: Acute Code(s): D62 - ACUTE POSTHEMORRHAGIC ANEMIA SNOMED Code(s): 616690760 Plan: 1. cont pp care 2. monitor for s/s of anemia
[2021-09-06] MEDS: INSULIN ASPART (NovoLOG) 100 UNIT/ML VIAL SQ SCH ×4 (07:50→20:27)
--- NOTE | 2021-09-06 07:52 | P.MSEPDOC ---
Presenting Problems - Arrival Data Date of Arrival on Unit: 09/05/21 Time of Arrival on Unit: 17:30 Mode of Transport: Wheelchair - Complaint OB-Reason for Admission/Chief Complaint: Possible Onset of Labor Medical History - Information : 4 Para: 3 Term: 1 : 1 Abortions: Spontaneous or Elective: 1 Number of Living Children: 2 - Gestational Age Gestational Age by SPARKLE (wks/days): 36 Weeks and 5 Days - History Comment: Pt. is type 2 DM and polyhydraminos Review of Systems - Review of Systems Constitutional: No problems Breast: No problems ENT: No problems Cardiovascular: No problems Respiratory: No problems Gastrointestinal: No problems Genitourinary: No problems Musculoskeletal: No problems Neurological: No problems Skin: No problems Vital Signs - Temperature Temperature: 97.8 F Temperature Source: Oral - Pulse Pulse Oximetery Pulse Rate: 83 Pulse Assessment Method: Automatic Cuff - Respirations Respiratory Rate: 16 Oxygen Delivery Method: Room Air - Blood Pressure Right Arm Blood Pressure: 102/55 Blood Pressure Mean: 70 Blood Pressure Source: Automatic Cuff Medical Screen Scoring - Cervical Exam Dilation (cm): 3.5 Effacement (%): 70 Station: -2 Membranes: Intact - Uterine Contractions Frequency From (mins): 2 Frequency To (mins): 4 Duration From (seconds): 40 Duration To (seconds): 70 Intensity: Moderate Resting: Soft to palpation - Assessment - Baby A Baseline FHR: 175 Heart Rate - NICHD Category: Category II (Indeterminate) NST: Reactive Physician Notification - Physician Notified Physician Notified Date: 09/06/21 Physician Notified Time: 21:07 Physician: Dr. Phillips New Order Received: Yes - Notification Comment Comment: admit for labor Maternal Triage Index - Maternal Triage Index Presenting for scheduled procedure w/no complaint: No - Stat/Priority 1 Stat Priority 1: No - Urgent/Priority 2 Urgent Priority 2: Yes Provider Notified: Dr. Phillips Provider Notified Time: 18:01 Criteria Met for Priority 2: 36weeks and 4 days, contraction 2-4 min apart Disposition - Disposition OB Disposition: Admit Discharge Date: 09/05/21 Discharge Time: 21:07 I agree with the RN Medical Screening Exam: Yes Case reviewed; plan agreed upon as documented in EMR&OBIX.: Yes Diagnosis: ENCOUNTER FOR FULL-TERM UNCOMPLICATED DELIVERY
[2021-09-06] MEDS: SENNOSIDES-DOCUSATE SODIUM 1 EACH TAB PO SCH ×2 (08:01→20:19)
[2021-09-06 11:47] LABS: Glucose,Whole Blood 162 mg/dL (75-99)
[2021-09-06 17:38] LABS: Glucose,Whole Blood 145 mg/dL (75-99)
[2021-09-06 20:07] LABS: Glucose,Whole Blood 182 mg/dL (75-99)
--- NOTE | 2021-09-07 07:14 | P.DS ---
Providers Date of admission: 09/05/21 21:14 Expected date of discharge: 09/07/21 Attending physician: Kellee Phillips Primary care physician: Stated None - Discharge Diagnosis(es) (1) Type 2 diabetes mellitus affecting in third trimester, antepartum Current Visit: Yes Status: Resolved (2) Polyhydramnios Current Visit: Yes Status: Resolved (3) Type 2 diabetes mellitus Current Visit: Yes Status: Acute (4) Acute blood loss anemia Current Visit: Yes Status: Acute Hospital Course: Pt presented in labor at 36 weeks. She had hx diabetes and came in with hgb of 10. She underwent a normal vaginal delivery. Post , hgb of 7 but asymptomatic, otherwise pp course uncomplicated. She denies N/V, F/C, CP, SOB or calf pain. Pt will be discharged home PPD #2 in stable condition to follow up with her OB in 6 weeks. Plan - Discharge Summary New Discharge Prescriptions: New Ibuprofen [Motrin] 600 mg PO Q6HR PRN #40 tab PRN Reason: Mild Pain (Scale 1 To 3) No Action Insulin NPH Human Isophane [NovoLIN N] 25 units SQ DAILY Aspirin EC [Ecotrin Low Dose] 81 mg PO DAILY Insulin NPH Human Isophane [NovoLIN N] 10 units SQ HS INSULIN ASPART (NovoLOG) [NovoLOG (formulary)] 15 unit SQ BID Gummie 2 tab PO DAILY Discharge Medication List Aspirin EC [Ecotrin Low Dose] 81 mg PO DAILY 04/07/21 [History] INSULIN ASPART (NovoLOG) [NovoLOG (formulary)] 15 unit SQ BID 04/07/21 [History] Insulin NPH Human Isophane [NovoLIN N] 10 units SQ HS 04/07/21 [History] Insulin NPH Human Isophane [NovoLIN N] 25 units SQ DAILY 04/07/21 [History] Gummie 2 tab PO DAILY 04/07/21 [History] Ibuprofen [Motrin] 600 mg PO Q6HR PRN #40 tab 09/07/21 [Rx] Follow up Appointment(s)/Referral(s): Anju Rose MD [REFERRING] - 1 Week Kellee Phillips DO [Doctor of Osteopathic Medicine] - As Needed Discharge Disposition: HOME SELF-CARE
[2021-09-07 07:37] LABS: Glucose,Whole Blood 102 mg/dL (75-99)
[2021-09-07] MEDS: IBUPROFEN 600 MG TAB PO PRN ×3 (07:46→18:00)
[2021-09-07] MEDS: INSULIN ASPART (NovoLOG) 100 UNIT/ML VIAL SQ SCH ×3 (07:48→17:17)
[2021-09-07] MEDS: SENNOSIDES-DOCUSATE SODIUM 1 EACH TAB PO SCH (08:06)
[2021-09-07 08:25] VITALS: RESP 16
[2021-09-07 11:55] LABS: Glucose,Whole Blood 174 mg/dL (75-99)
[2021-09-07 15:52] VITALS: BP 126/75; PULSE 94; TEMP 98
[2021-09-07 17:10] LABS: Glucose,Whole Blood 136 mg/dL (75-99)
== END 2021-09-07 18:18 | disposition home or self-care (01) | DRG 805 ==
LOC: FBPOP 17:29 → 4FBP 21:14
PROVIDERS: ADMIT Obstetrics & Gynecology; ATTEND Obstetrics & Gynecology
PROC: 10E0XZZ Delivery of Products of Conception, External Approach (ICD-10-PCS; principal; 2021-09-05)
PROC: 0KQM0ZZ Repair Perineum Muscle, Open Approach (ICD-10-PCS; principal; 2021-09-05)
PROC: 3E0234Z Introduction of Serum, Toxoid and Vaccine into Muscle, Percutaneous Approach (ICD-10-PCS; 2021-09-05)
DX: O40.3XX0 Polyhydramnios, third trimester, not applicable or unspecified (principal); O24.12 Pre-existing type 2 diabetes mellitus, in childbirth; Z37.0 Single live birth; D62 Acute posthemorrhagic anemia; O99.02 Anemia complicating childbirth; O69.81X0 Labor and delivery complicated by cord around neck, without compression, not applicable or unspecified; O70.1 Second degree perineal laceration during delivery; O26.893 Other specified pregnancy related conditions, third trimester; Z67.11 Type A blood, Rh negative; Z3A.36 36 weeks gestation of pregnancy; Z79.82 Long term (current) use of aspirin; Z79.4 Long term (current) use of insulin; Z79.899 Other long term (current) drug therapy; Z90.49 Acquired absence of other specified parts of digestive tract; Z86.69 Personal history of other diseases of the nervous system and sense organs; Z87.19 Personal history of other diseases of the digestive system; Z98.890 Other specified postprocedural states; Z83.3 Family history of diabetes mellitus; Z80.49 Family history of malignant neoplasm of other genital organs
CPT/HCPCS: 80053; 81001; 85025; 86850; 86900; 86901; 88307; 96360; 96361; 99213

== ENCOUNTER 2024-08-07 22:52 | Emergency (ER) | payer OTHER ==
--- NOTE | 2024-08-07 23:39 | ED ---
Female Urogenital HPI - General Chief complaint: Vaginal Bleeding Stated complaint: vaginal bleeding Time Seen by Provider: 08/07/24 23:36 Source: patient, family (), RN notes reviewed Mode of arrival: ambulatory Limitations: no limitations - History of Present Illness Initial comments: 39-year-old G7, female presenting to the ER for evaluation of vaginal bleeding. Patient reports for the past 3 months she has been having light spotting lasting approximately 3 days which then resolved which she believes with her menstrual cycle. She states this morning while unloading the tape maker she went to close the door when she felt an extremely sharp left lower quadrant abdominal pain with radiation to the right lower quadrant. She states upon standing up she felt a large gush of material from her vagina into her underwear. She states she went to the bathroom and noticed a large amount of blood at that time. She also noticed what appeared to be a small fetus. Patient reports approximately an hour after first ago she had another gush with another what appeared to be a small fetus. Patient has pictures of these. She states since then she has been having consistent heavy bleeding and clotting changing a pad every 30 minutes. Patient does report a history of needing blood transfusions after pregnancies. She states this evening she started to feel extremely diaphoretic and dizzy which prompted emergency department visit. Patient is currently rating her left lower abdominal tenderness 3 out of 10. She did take 2 Aleve this morning. She denies any current chest pain, shortness of breath, dizziness, lightheadedness, urinary complaints or peripheral edema. Patient did not know she was possibly and is not following up with an [facility]. No fevers or chills. Patient reports pain feels similar to previous miscarriages. - Related Data Home Medications Medication Instructions Recorded Confirmed Aspirin EC [Ecotrin Low Dose] 81 mg PO DAILY 04/07/21 09/05/21 INSULIN ASPART (NovoLOG) [NovoLOG 15 unit SQ BID 04/07/21 09/05/21 (formulary)] Insulin NPH Human Isophane 10 units SQ HS 04/07/21 09/05/21 [NovoLIN N] Insulin NPH Human Isophane 25 units SQ DAILY 04/07/21 09/05/21 [NovoLIN N] Gummie 2 tab PO DAILY 04/07/21 09/05/21 Previous Rx's Medication Instructions Recorded Ibuprofen [Motrin] 600 mg PO Q6HR PRN #40 tab 09/07/21 Allergies Allergy/AdvReac Type Severity Reaction Status Date / Time grass pollen Allergy Unknown Verified 08/07/24 23:03 Penicillins Allergy Anaphylaxis Verified 08/07/24 23:03 pollen extracts Allergy Unknown Verified 08/07/24 23:03 shellfish derived [Shellfish] Allergy Anaphylaxis Verified 08/07/24 23:03 Review of Systems ROS Statement: Those systems with pertinent positive or pertinent negative responses have been documented in the HPI. ROS Other: All systems not noted in ROS Statement are negative. Past Medical History Past Medical History: Diabetes Mellitus Additional Past Medical History / Comment(s): Type 2 diabetes. OB history: She has had 3 previous vaginal deliveries. This is her fourth and she had care with Dr Rose. She is diabetic and on insulin but was not f ollowing up with M as she was asked to. Her sugars were not well controlled and baby was over 7 pounds 3 weeks ago as well as polyhydramnios. History of Any Multi-Drug Resistant Organisms: None Reported Past Surgical History: Cholecystectomy Additional Past Surgical History / Comment(s): Eye surgery for strabismus. LEEP excision of the cervix (after the delivery of her last baby.) Patient's had 2 previous term deliveries. Past Anesthesia/Blood Transfusion Reactions: No Reported Reaction Past Psychological History: No Psychological Hx Reported Smoking Status: Never smoker Past Alcohol Use History: None Reported Past Drug Use History: None Reported - Past Family History Father Family Medical History: Cancer Additional Family Medical History / Comment(s): COLON Mother Family Medical History: Cancer, Diabetes Mellitus Additional Family Medical History / Comment(s): BREAST AND UTERINE CA General Exam Limitations: no limitations General appearance: alert, in no apparent distress Respiratory exam: Present: normal lung sounds bilaterally. Absent: respiratory distress, wheezes, rales, rhonchi, stridor Cardiovascular Exam: Present: regular rate, normal rhythm, normal heart sounds. Absent: systolic murmur, diastolic murmur, rubs, gallop, clicks GI/Abdominal exam: Present: soft, tenderness (Left lower quadrant), normal bowel sounds External exam: Present: normal external exam Speculum exam: Present: cervical discharge (clots and moderate bleeding), other (cervical os unable to be visualized due to clot/bleeding) Neurological exam: Present: alert, oriented X3, CN II-XII intact Skin exam: Present: warm, dry, intact, normal color. Absent: rash Course Vital Signs 08/07/24 08/08/24 08/08/24 22:59 00:03 03:00 Temperature 97.8 F Pulse Rate 82 87 74 Respiratory 20 18 18 Rate Blood Pressure 131/84 125/73 143/54 O2 Sat by Pulse 100 99 100 Oximetry 08/08/24 04:14 Temperature 97.9 F Pulse Rate 88 Respiratory 18 Rate Blood Pressure 103/65 O2 Sat by Pulse 100 Oximetry - Reevaluation(s) Reevaluation #1: 08/08/24 00:05 Pelvic exam performed and chaperoned by Brandie ELLIS. Medical Decision Making - Medical Decision Making Was pt. sent in by a medical professional or institution (, PA, [employer], urgent care, hospital, or halfway...) When possible be specific @ -No Did you speak to anyone other than the patient for history (EMS, parent, family, police, friend...)? What history was obtained from this source @ -Patient's , at bedside, aiding in HPI past medical history. Did you review nursing and triage notes (agree or disagree)? Why? @ -I reviewed and agree with nursing and triage notes Were old charts reviewed (outside hosp., previous admission, EMS record, old EKG, old radiological studies, urgent care reports/EKG's, halfway records)? Report findings @ -No old charts were reviewed Differential Diagnosis (chest pain, altered mental status, abdominal pain women, abdominal pain men, vaginal bleeding, weakness, fever, dyspnea, syncope, headache, dizziness, GI bleed, back pain, seizure, CVA, palpatations, mental health, musculoskeletal)? @ -Differential Vaginal Bleeding:Spontaneous , threatened , molar , ectopic , bloody show, incompetent cervix, a bruptioplacenta, placenta previa, uterine rupture, dysfunctional uterine bleeding, hemorrhage, uterine fibroids, this is not meant to be an all-inclusive list. EKG interpreted by me (3pts min.). @ -None done X-rays interpreted by me (1pt min.). @ -None done CT interpreted by me (1pt min.). @ -None done U/S interpreted by me (1pt. min.). @ -Transvaginal ultrasound showing a thickened endometrial stripe measuring 2 cm.No abnormal vascular flow suggesting retained products of conception. No IUP. Lower uterine segment and cervix is closed. Complex presumed hemorrhagic cyst of the right ovary. No evidence of right ovarian torsion. Left ovary is not identified. No adnexal mass. What testing was considered but not performed or refused? (CT, X-rays, U/S, labs)? Why? @ -None What meds were considered but not given or refused? Why? @ -None Did you discuss the management of the patient with other professionals (professionals i.e. , PA, [employer]ER, lab, RT, psych nurse, oncology social work, metal roofing mechanic, teacher, chief school finance officer, senior case manager)? Give summary @ -No Was smoking cessation discussed for >3mins.? @ -No Was critical care preformed (if so, how long)? @ -No Were there social determinants of health that impacted care today? How? (Homelessness, low income, unemployed, alcoholism, drug addiction, transportation, low edu. Level, literacy, decrease access to med. care, senior living, rehab)? @ -No Was there de-escalation of care discussed even if they declined (Discuss DNR or withdrawal of care, Hospice)? DNR status @ -No What co-morbidities impacted this encounter? (DM, HTN, Smoking, COPD, CAD, Cancer, CVA, ARF, Chemo, Hep., AIDS, mental health diagnosis, sleep apnea, morbid obesity)? @ - Was patient admitted / discharged? Hospital course, mention meds given and route, prescriptions, significant lab abnormalities, going to OR and other pertinent info. @ -Discharge. 39-year-old G7, female presented to ER for evaluation of vaginal bleeding. Upon rooming, history and physical exam completed. Vitals within acceptable limits. There is focal left lower quadrant abdominal tenderness. Pelvic exam performed and chaperoned by Brandie ELLIS. Cervical os not able to be visualized due to clotting and mild bleeding. Laboratory studies obtained showed a leukocytosis 16.3 with a left shift likely reactive. Hemoglobin of 10.7. Serum hCG 1697.6. Urinalysis is hemorrhagic with large blood and 179 and RBCs likely contaminated from vaginal bleeding. Blood type A- for which patient received RhoGAM. Transvaginal ultrasound showing a thickened endometrial stripe. No IUP or abnormal vascular flow suggesting retained products is seen. Patient given Tylenol and 1 L IV fluid bolus in the emergency department. Upon reevaluation the patient resting comfortably in exam room. She was reporting a decrease in amount of clots and bleeding being passed currently. As patient has stable hemoglobin and vital signs she is stable for discharge at this time with close outpatient follow-up to PCP and [facility]. Strict return parameters discussed. Patient discharged in stable condition. Prescription for serial hCG given and instructed patient to obtain in 48 hours. Patient verbally expressed understanding and agreement with care plan. Case discussed with ED attending, Dr. Sylvester. Undiagnosed new problem with uncertain prognosis? @ -No Drug Therapy requiring intensive monitoring for toxicity (Heparin, Nitro, In sulin, Cardizem)? @ -No Were any procedures done? @ -No Diagnosis/symptom? @ -Threatened Acute, or Chronic, or Acute on Chronic? @ -Acute Uncomplicated (without systemic symptoms) or Complicated (systemic symptoms)? @ -Uncomplicated Side effects of treatment? @ -No Exacerbation, Progression, or Severe Exacerbation? @ -No Poses a threat to life or bodily function? How? (Chest pain, [place], [place], pneumonia, PE, COPD, DKA, ARF, appy, cholecystitis, CVA, Diverticulitis, Homicidal, Suicidal, threat to staff... and all critical care pts) @ -No - Lab Data Result diagrams: 08/07/24 23:53 08/07/24 23:53 Lab Results 08/07/24 08/07/24 08/07/24 Range/Units 23:53 23:53 23:53 WBC 16.3 H (3.8-10.6) k/uL RBC 3.42 L (3.80-5.40) m/uL Hgb 10.7 L (11.4-16.0) gm/dL Hct 32.6 L (34.0-46.0) % MCV 95.3 (80.0-100.0) fL MCH 31.1 (25.0-35.0) pg MCHC 32.6 (31.0-37.0) g/dL RDW 12.1 (11.5-15.5) % Plt Count 314 (150-450) k/uL MPV 7.4 Neutrophils % 82 % Lymphocytes % 11 % Monocytes % 6 % Eosinophils % 1 % Basophils % 0 % Neutrophils # 13.3 H (1.3-7.7) k/uL Lymphocytes # 1.7 (1.0-4.8) k/uL Monocytes # 0.9 (0-1.0) k/uL Eosinophils # 0.2 (0-0.7) k/uL Basophils # 0.0 (0-0.2) k/uL Sodium 132 L (137-145) mmol/L Potassium 4.6 (3.5-5.1) mmol/L Chloride 103 (98-107) mmol/L Carbon Dioxide 20 L (22-30) mmol/L Anion Gap 9 mmol/L BUN 7 (7-17) mg/dL Creatinine 0.45 L (0.52-1.04) mg/dL Est GFR (CKD-EPI)AfAm >90 (>60 ml/min/1.73 sqM) Est GFR (CKD-EPI)NonAf >90 (>60 ml/min/1.73 sqM) Glucose 188 H (74-99) mg/dL Calcium 8.8 (8.4-10.2) mg/dL Total Bilirubin 0.7 (0.2-1.3) mg/dL AST 26 (14-36) U/L ALT 10 (4-34) U/L Alkaline Phosphatase 47 (38-126) U/L Total Protein 6.7 (6.3-8.2) g/dL Albumin 4.1 (3.5-5.0) g/dL HCG, Quant 1697.6 mIU/mL Urine Color Urine Appearance (Clear) Urine pH (5.0-8.0) Ur Specific [place] (1.001-1.035) Urine Protein (Negative) Urine Glucose (UA) (Negative) Urine Ketones (Negative) Urine Blood (Negative) Urine Nitrite (Negative) Urine Bilirubin (Negative) Urine Urobilinogen (<2.0) mg/dL Ur Leukocyte Esterase (Negative) Urine RBC (0-5) /hpf Urine WBC (0-5) /hpf Ur Squamous Epith Cells (0-4) /hpf Urine Bacteria (None) /hpf Urine Mucus (None) /hpf Blood Type A Negative Blood Type Recheck A Neg Bld Type Recheck Status No Antibody Screen NEGATIVE Spec Expiration Date 08/10/2024202408/08/24 Range/Units 03:03 WBC (3.8-10.6) k/uL RBC (3.80-5.40) m/uL Hgb (11.4-16.0) gm/dL Hct (34.0-46.0) % MCV (80.0-100.0) fL MCH (25.0-35.0) pg MCHC (31.0-37.0) g/dL RDW (11.5-15.5) % Plt Count (150-450) k/uL MPV Neutrophils % % Lymphocytes % % Monocytes % % Eosinophils % % Basophils % % Neutrophils # (1.3-7.7) k/uL Lymphocytes # (1.0-4.8) k/uL Monocytes # (0-1.0) k/uL Eosinophils # (0-0.7) k/uL Basophils # (0-0.2) k/uL Sodium (137-145) mmol/L Potassium (3.5-5.1) mmol/L Chloride (98-107) mmol/L Carbon Dioxide (22-30) mmol/L Anion Gap mmol/L BUN (7-17) mg/dL Creatinine (0.52-1.04) mg/dL Est GFR (CKD-EPI)AfAm (>60 ml/min/1.73 sqM) Est GFR (CKD-EPI)NonAf (>60 ml/min/1.73 sqM) Glucose (74-99) mg/dL Calcium (8.4-10.2) mg/dL Total Bilirubin (0.2-1.3) mg/dL AST (14-36) U/L ALT (4-34) U/L Alkaline Phosphatase (38-126) U/L Total Protein (6.3-8.2) g/dL Albumin (3.5-5.0) g/dL HCG, Quant mIU/mL Urine Color Colorless Urine Appearance Clear (Clear) Urine pH 6.0 (5.0-8.0) Ur Specific [place] 1.003 (1.001-1.035) Urine Protein Negative (Negative) Urine Glucose (UA) Negative (Negative) Urine Ketones Negative (Negative) Urine Blood Large H (Negative) Urine Nitrite Negative (Negative) Urine Bilirubin Negative (Negative) Urine Urobilinogen <2.0 (<2.0) mg/dL Ur Leukocyte Esterase Negative (Negative) Urine RBC 179 H (0-5) /hpf Urine WBC 4 (0-5) /hpf Ur Squamous Epith Cells <1 (0-4) /hpf Urine Bacteria Occasional H (None) /hpf Urine Mucus Rare H (None) /hpf Blood Type Blood Type Recheck Bld Type Recheck Status Antibody Screen Spec Expiration Date - Radiology Data Radiology results: report reviewed, image reviewed Disposition Clinical Impression: Threatened Disposition: HOME SELF-CARE Condition: Stable Instructions (If sedation given, give patient instructions): Threatened Miscarriage (ED) Additional Instructions: Follow-up with PCP and [facility]. Have serial hCG drawn in 48 hours. Return to the ER for any new or worsening concerns. Is patient prescribed a controlled substance at d/c from ED?: No Referrals: None,Stated [REFERRING] - 1-2 days Kellee Phillips DO [Doctor of Osteopathic Medicine] - 1-2 days Forms: Area PCPs Time of Disposition: 03:48
[2024-08-08 00:19] LABS: Basophils % (A) 0 %; Eosinophils # (A) 0.2 k/uL (0-0.7); Eosinophils % (A) 1 %; HCT 32.6 % (34.0-46.0); HGB 10.7 gm/dL (11.4-16.0); Lymphocytes # (A) 1.7 k/uL (1.0-4.8); Lymphocytes % (A) 11 %; MCH 31.1 pg (25.0-35.0); MCHC 32.6 g/dL (31.0-37.0); MCV 95.3 fL (80.0-100.0); Mean Platelet Volume 7.4; Monocytes # (A) 0.9 k/uL (0-1.0); Monocytes % (A) 6 %; Neutrophils # (A) 13.3 k/uL (1.3-7.7); Neutrophils % (A) 82 %; Platelet Count 314 k/uL (150-450); RBC 3.42 m/uL (3.80-5.40); RDW 12.1 % (11.5-15.5); WBC 16.3 k/uL (3.8-10.6)
[2024-08-08 00:29] LABS: ALT 10 U/L (4-34); African American GFR (CKD) >90 (>60 ml/min/1.73 sqM); Anion Gap 9 mmol/L; Blood Urea Nitrogen 7 mg/dL (7-17); Calcium 8.8 mg/dL (8.4-10.2); Carbon Dioxide 20 mmol/L (22-30); Chloride 103 mmol/L (98-107); Glucose 188 mg/dL (74-99); Non-African American GFR(CKD) >90 (>60 ml/min/1.73 sqM); Sodium 132 mmol/L (137-145); Total Bilirubin 0.7 mg/dL (0.2-1.3)
[2024-08-08 00:32] LABS: AST 26 U/L (14-36); Albumin 4.1 g/dL (3.5-5.0); Alkaline Phosphatase 47 U/L (38-126); Potassium 4.6 mmol/L (3.5-5.1); Total Protein 6.7 g/dL (6.3-8.2)
[2024-08-08] MEDS: SODIUM CHLORIDE 0.9% 1,000 ML IV ONE (00:32)
[2024-08-08] MEDS: ACETAMINOPHEN TAB 325 MG TAB PO STA (00:32)
[2024-08-08 00:46] LABS: HCG,Quantitative Serum 1697.6 mIU/mL
[2024-08-08 01:12] VITALS: RESP 18
[2024-08-08] MEDS: Rhogam IMMUNE GLOBULIN 1,500 UNIT/1 ML IM ONE (01:59)
--- NOTE | 2024-08-08 03:16 | US ---
EXAM: US Pelvis Transabdominal and Transvaginal, Complete CLINICAL HISTORY: Vaginal bleeding poss passed two fetus TECHNIQUE: Real-time complete transabdominal and transvaginal pelvic ultrasound with image documentation. Transvaginal imaging was used for better evaluation of the endometrium and adnexa. COMPARISON: No relevant prior studies available. FINDINGS: Uterus/cervix: Uterus measures 10.3 x 7.2 x 7.5 cm. The endometrial stripe measures 2 cm and is somewhat heterogeneous in appearance. There was reported motion within the more fluid appearing components; however, no cine imaging was provided for confirmation; therefore I cannot comment on the potential multiple fluid components in the endometrium. No abnormal vascular flow noted within the endometrium. The lower uterine segment and cervix is closed. No myometrial mass. Right ovary: The right ovary measures 2.6 x 2.1 x 1.5 cm. There is a complex heterogeneous cyst with posterior low level echoes and marginal hyperechoic round measuring 2.1 x 1.5 x 1.7 cm. Internal vascular flow noted. No adnexal mass. Normal blood flow. Left ovary: The left ovary is not identified transvaginally secondary to bowel gas pattern. No adnexal mass. Free fluid: No free fluid. Bladder: Unremarkable as visualized. Wall is normal thickness for degree of distention. IMPRESSION: 1. The endometrial stripe is prominent and heterogeneous in appearance. Questionable fluid components internally. No abnormal vascular flow to suggest retained products of conception. No intrauterine gestation. The lower uterine segment and cervix is closed. 2. Complex presumed hemorrhagic cyst in the right ovary. The right ovary is otherwise unremarkable without evidence for torsion. The left ovary is not identified. No adnexal mass.
[2024-08-08 03:53] LABS: Appearance,Urine Clear (Clear); Bacteria,Urine Occasional /hpf; Bilirubin,Urine Negative (Negative); Blood,Urine Large (Negative); Color,Urine Colorless; Glucose,Urine (UA) Negative (Negative); Ketones,Urine Negative (Negative); Leukocyte Esterase,Urine Negative (Negative); Mucus,Urine Rare /hpf; Nitrite,Urine Negative (Negative); Protein,Urine Negative (Negative); RBC,Urine 179 /hpf (0-5); Specific Gravity,Urine 1.003 (1.001-1.035); Squamous Epithelial Cell,Urine <1 /hpf (0-4); Urobilinogen,Urine <2.0 mg/dL (<2.0); WBC,Urine 4 /hpf (0-5)
[2024-08-08 04:22] VITALS: BP 103/65; PULSE 88; TEMP 97.9
== END 2024-08-08 04:14 | disposition home or self-care (01) ==
LOC: EC 22:52
DX: O09.90 Supervision of high risk pregnancy, unspecified, unspecified trimester (principal); O20.0 Threatened abortion; O34.80 Maternal care for other abnormalities of pelvic organs, unspecified trimester; N83.201 Unspecified ovarian cyst, right side; O99.119 Other diseases of the blood and blood-forming organs and certain disorders involving the immune mechanism complicating pregnancy, unspecified trimester; D72.829 Elevated white blood cell count, unspecified; Z3A.00 Weeks of gestation of pregnancy not specified
CPT/HCPCS: 36415; 86900; 86901; 80053; 85025; 86850; 81001; 84702; 93976; 76830; 99284; 96360; 96372; J2790

== ENCOUNTER → 2024-08-10 | Outpatient (CLI) | payer OTHER | END | disposition home or self-care (01) | LOC: LABWHC1 11:42 | PROVIDERS: ATTEND Technician/Technologist | DX: O20.0 Threatened abortion (principal) | CPT/HCPCS: 36415; 84702 ==